=== PATIENT | male | born 1960 | race Caucasian/White ===

== ENCOUNTER 2016-11-24 22:41 | Emergency (ER) | payer MEDICARE ==
[~2016-11-24] VITALS: Ht 175.3 cm; Wt 103.6 kg
[~2016-11-24 22:41] MED LIST: ALPR0.25 PO; ALPR0.5T6 PO; ALPR1TAB6 PO; AMIT25TA PO; ASPI-482 PO; ATOR10TA PO; ATOR40TA59 PO; BUDE10.22 IH; DULO60CA44 PO; FOLI1TAB16 PO; GABA-586 PO; HYDR-2867 PO; LEVE250T4 PO; LEVE500T6 PO; LISI10TA2 PO; METO10TA PO; MORP15TA PO; MORP30TA PO; MORP60TA PO; OMEP20CA9 PO; ONDA-36 PO; PHEN100C PO; PREG150C PO; TEMA30CA PO; WARF5TAB7 PO; lisinopril PO; metoprolol PO
--- NOTE | 2016-11-24 23:17 | PHYS DOC ---
General Chief Complaint: MULTIPLE COMPLAINTS Stated Complaint: RT JAW AND EAR PAIN AND SWELLING Time Seen by MD: 22:54 Source: patient, old records Exam Limitations: no limitations Problems: History of Present Illness Initial Comments Pt is 56/M to ED c/o dental/jaw pain. Pt states for the past 3-4 days he's had right upper molar pain which he feels has spread to his TMJ/ear. No fever/chills/diaphoresis, no focal neurodeficit/ hearing change/ear disch. Pt admits to very bad dentition, states he doesn't go to dentists. Pt has run out of his pain medications, states his doctor has "called some more in." Requesting pain meds. Timing/Duration: getting worse (4 days) Severity: moderate Modifying Factors: worse with eating, improves with rest Associated Symptoms: other Allergies: Coded Allergies: cyclobenzaprine (Unverified Allergy, Intermediate, 02/28/15) naproxen (Unverified Allergy, Intermediate, 02/28/15) prednisone (Unverified Allergy, Intermediate, PSYCHOSIS, 02/28/15) I S O L A T I O N *CONTACT* (Verified Allergy, Unknown, 10/26/16) +MRSA screen 10-25-16 Past Medical History Medical History: other (seizure-like activity, CVA, headaches, Crohn's, peripheral neuropathy, DVTs, HTN, HLP, chronic pain, fibromyalgia, osteoarthritis, colon cancer, coronary artery disease, asthma) Surgical History: appendectomy, cholecystectomy, other (left total knee replacement, colectomy, spine) Psychosocial History: anxiety, depression Social History Smoker: quit greater than 1 year, chew Alcohol: none Drugs: none Review of Systems Constitutional: denies chills, denies fever EENTM: see HPIdenies ear pain, denies ear discharge, denies nose pain, denies nose congestion Respiratory: denies cough, denies shortness of breath Cardiovascular: denies chest pain, denies palpitations, denies syncope Gastrointestinal: denies abdominal pain, denies nausea, denies vomiting Genitourinary: denies frequency, denies hematuria Musculoskeletal: see HPI Psychiatric/Neurological: denies headache, denies numbness, denies paresthesia Hematologic/Lymphatic: see HPI Physical Exam General Appearance: no apparent distress, obese Eyes: bilateral eye EOMI, bilateral eye PERRL, bilateral eye normal inspection Ear, Nose, Throat: hearing grossly normal, normal ENT inspection (very poor dentition, teeth 2-4 with severe decay and possible exposed nerve roots no gingival swelling/purulence no jaw TTP), normal pharynx Neck: non-tender, supple Respiratory: normal breath sounds, no respiratory distress Cardiovascular: normal peripheral pulses Gastrointestinal: non tender, soft Back: no CVA tenderness, no vertebral tenderness Extremities: normal range of motion, non-tender Neurologic/Psychiatric: mooner II-XII nml as tested, no motor/sensory deficits, alert, normal mood/affect, oriented x 3 Skin: normal color, warm/dry Orders, Labs, Meds EKG: NSR 77 bpm, no STEMI PATIENT: STACEY LOGAN ACCOUNT: [id number] : 1960 LOCATION: ER AGE: 56 SEX: M EXAM STATUS: REG ER ORD. PHYSICIAN: MARIA DEL CARMEN OLMOS DO REASON: dental abscess R upper molars TMJ/jaw pain r/o osteo PROCEDURE: HEAD AND MAXILLOFACIAL WO CT head and maxillofacial without contrast: Reason for examination: Severe right-sided facial pain and swelling and ear fullness with I in job pain. Nausea for 4 days. Right upper molar dental abscess noted in the ER. CT head without contrast: Comparison is made to previous examination dated 02/28/2015. Axial images were obtained through the brain with no contrast administered. Ventricular systems are symmetric and not abnormally dilated. No midline shift is seen. There is no evidence of intracranial hemorrhage. There is evidence of encephalomalacia involving the right parietal lobe which has not changed. No new sites of mass, infarct or edema are present. No abnormalities are seen in the orbits. There is some mild mucosal disease in the right maxillary antrum. Remaining paranasal sinuses are clear. Mastoid air cells are clear. Impression: Chronic infarct in the right parietal lobe with encephalomalacia. No interval change. No acute intracranial abnormality evident. CT maxillofacial without contrast: No acute abnormalities seen in the nasal bones. Orbital lanier and paranasal sinus lanier are intact. Again noted is some mucosal thickening in the right maxillary antrum but no fluid levels seen. No abnormalities are seen in the parotid glands or submandibular glands. These sternocleidomastoid muscles are symmetric. No abnormalities are seen in the masseter or pterygoid muscles. There is no evidence of abscess. There is some nonspecific lymphadenopathy seen in the submandibular and cervical regions. Impression: Mucosal thickening in the right maxillary antrum without fluid level. Nonspecific lymphadenopathy in the submandibular its cervical regions. No evidence of abscess. Exposure: One or more of the following individualized dose reduction techniques were used for this examination: 1. Automated exposure control. 2. Adjustment of the mA and/or kV according to patient size. 3. Use of iterative reconstruction technique. Electronically signed by: Megan Watts MD (Nov 25, 2016 01:02:49) DICTATED AND SIGNED BY: BIANCA WATTS MD DATE: 11/25/16101 CC: CORTEZ BURCIAGA; MARIA DEL CARMEN OLMOS DO ~ Labs reassuring: WBC 11.8, ESR 28, lactic acid 1.5, CRP 11.7 Pt feeling better, awaiting discharge. He expressed agreement/understanding with treatment plan Departure Time of Disposition: 02:03 Disposition: 01 HOME, SELF-CARE Diagnosis: dental caries, sinusitis Condition: STABLE Patient Instructions: Dental Abscess, Sinusitis, Oolo-cs-Jaju Additional Instructions: Rest, no strenuous activity. Aggressive hydration with gatorade, water. Continue current meds. Rx: clindamycin, norco 7.5mg #15, take with food as directed. Follow up with your doctor in 2-3 days for recheck. Follow up with dentist next available appointment. Per your request, ED staff will provide information regarding [facility] , [facility], and [facility]. Use these resources today to schedule next available dental appointment. Return to ED with new or changing symptoms. MARIA DEL CARMEN OLMOS DO Nov 24, 2016 23:17
[2016-11-25] MEDS ORDERED: CLINDAMYCIN 900MG PREMIX 50 ML IV ONE (00:15)
[2016-11-25] MEDS ORDERED: ONDANSETRON PF 4 MG/2 ML VIAL. IV ONE (00:15)
[2016-11-25] MEDS ORDERED: MORPHINE SULFATE 10 MG/ML SYRINGE. IM ONE (00:30)
[2016-11-25] MEDS: DIAZEPAM 10 MG/2 ML DISP.SYRIN. IM ONE (00:30)
[2016-11-25] MEDS: ONDANSETRON ODT 4 MG TAB.RAPDIS PO ONE (00:40)
[2016-11-25] MEDS: CLINDAMYCIN HCL 150 MG CAPSULE PO ONE (00:40)
[2016-11-25 00:41] LABS: BASO # 0.1 x10^3/uL (0.0-0.2); BASO % 1 % (0-3); EOS # 0.2 x10^3/uL (0.0-0.7); EOS % 2 % (0-3); HEMATOCRIT 38.2 % (39.0-53.0); HEMOGLOBIN 12.4 g/dL (13.0-17.5); LYMPH # 2.9 x10^3/uL (1.0-4.8); LYMPH % 25 % (24-48); MEAN CORPUSCULAR HEMOGLOBIN 30 pg (25-35); MEAN CORPUSCULAR HGB CONC 33 g/dL (31-37); MEAN CORPUSCULAR VOLUME 92 fL (79-100); MONO # 1.1 x10^3/uL (0.0-1.1); MONO % 9 % (0-9); NEUT # 7.4 x10^3uL (1.8-7.7); NEUT % 63 % (31-73); PLATELET COUNT 251 x10^3/uL (140-400); RED BLOOD COUNT 4.17 x10^6/uL (4.30-5.70); RED CELL DISTRIBUTION WIDTH 14.2 % (11.5-14.5); WHITE BLOOD COUNT 11.8 x10^3/uL (4.0-11.0)
[2016-11-25 00:54] LABS: C REACTIVE PROTEIN 11.7 mg/L (0-3.3); CALCIUM 8.8 mg/dL (8.5-10.1); CREATININE 0.7 mg/dL (0.7-1.3); GFR 115.8
--- NOTE | 2016-11-25 01:04 | RAD ---
CT head and maxillofacial without contrast: Reason for examination: Severe right-sided facial pain and swelling and ear fullness with I in job pain. Nausea for 4 days. Right upper molar dental abscess noted in the ER. CT head without contrast: Comparison is made to previous examination dated 02/28/2015. Axial images were obtained through the brain with no contrast administered. Ventricular systems are symmetric and not abnormally dilated. No midline shift is seen. There is no evidence of intracranial hemorrhage. There is evidence of encephalomalacia involving the right parietal lobe which has not changed. No new sites of mass, infarct or edema are present. No abnormalities are seen in the orbits. There is some mild mucosal disease in the right maxillary antrum. Remaining paranasal sinuses are clear. Mastoid air cells are clear. Impression: Chronic infarct in the right parietal lobe with encephalomalacia. No interval change. No acute intracranial abnormality evident. CT maxillofacial without contrast: No acute abnormalities seen in the nasal bones. Orbital lanier and paranasal sinus lanier are intact. Again noted is some mucosal thickening in the right maxillary antrum but no fluid levels seen. No abnormalities are seen in the parotid glands or submandibular glands. These sternocleidomastoid muscles are symmetric. No abnormalities are seen in the masseter or pterygoid muscles. There is no evidence of abscess. There is some nonspecific lymphadenopathy seen in the submandibular and cervical regions. Impression: Mucosal thickening in the right maxillary antrum without fluid level. Nonspecific lymphadenopathy in the submandibular its cervical regions. No evidence of abscess. Exposure: One or more of the following individualized dose reduction techniques were used for this examination: 1. Automated exposure control. 2. Adjustment of the mA and/or kV according to patient size. 3. Use of iterative reconstruction technique. Electronically signed by: Megan Cowan MD (Nov 25, 2016 01:02:49)
[2016-11-25 01:47] LABS: SEDIMENTATION RATE 28 (0-15)
[2016-11-25 01:56] VITALS: BP 148/75
[2016-11-25] MEDS ORDERED: HYDROCODONE/APAP 10/325 TABLET. ONE (01:56)
[2016-11-25] MEDS: HYDROCODONE/APAP 10/325 TABLET. PO ONE (01:56)
[2016-11-25] MEDS ORDERED: HYDR-965 PO (02:08)
[2016-11-25] MEDS ORDERED: CLIN300C86 PO (02:08)
--- NOTE | 2016-11-25 10:27 | EKG ---
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
== END 2016-11-25 02:13 | disposition home or self-care (01) ==
LOC: ER 22:41
DX: K02.9 Dental caries, unspecified (principal); J32.9 Chronic sinusitis, unspecified; I25.10 Atherosclerotic heart disease of native coronary artery without angina pectoris; I10 Essential (primary) hypertension; G89.29 Other chronic pain; M19.90 Unspecified osteoarthritis, unspecified site; M79.7 Fibromyalgia; G62.9 Polyneuropathy, unspecified; E03.9 Hypothyroidism, unspecified; K50.90 Crohn's disease, unspecified, without complications; Z87.891 Personal history of nicotine dependence; Z86.73 Personal history of transient ischemic attack (TIA), and cerebral infarction without residual deficits; Z88.8 Allergy status to other drugs, medicaments and biological substances; Z88.6 Allergy status to analgesic agent; Z91.041 Radiographic dye allergy status
CPT/HCPCS: 36415; 70450; 70486; 80048; 82550; 83605; 84484; 85027; 85651; 86140; 93005; 96372; 99285; Q0162

== ENCOUNTER 2016-11-28 00:01 | Observation (INO) | payer MEDICARE ==
[~2016-11-28] VITALS: Ht 175.3 cm; Wt 102.5 kg
[~2016-11-28 00:01] MED LIST changes: +CLIN300C86 PO; +HYDR-965 PO
[2016-11-28] MEDS ORDERED: LORAZEPAM 2 MG/ML VIAL IM ONE (00:45)
[2016-11-28] MEDS ORDERED: ORPHENADRINE CITRATE 60 MG/2 ML VIAL. IM ONE (00:45)
[2016-11-28] MEDS ORDERED: MORPHINE SULFATE 10 MG/ML SYRINGE. IM ONE (00:45)
--- NOTE | 2016-11-28 00:45 | PHYS DOC ---
General Chief Complaint: BACK PAIN OR INJURY Stated Complaint: BACK MABRY Time Seen by MD: 00:31 Source: patient, EMS Problems: History of Present Illness Initial Comments Patient here by EMS for back pain. Patient states he fell off a dump truck yesterday. He says he landed on the left side of his low back on a curb. He is actually doing fairly well but when he woke up this morning he began to have low back pain. He says it is more towards the center of the low back. He's had some chronic low back problems before. The pain is nonradiating. He's had no fever or chills was felt somewhat hot. There is no runny nose or sore throat. There is no chest pain or shortness of breath. He has some nausea due to pain. He has no abdominal pain. There is no change in bowel or bladder habits no incontinence. He says it hurts to move his legs but there is no focal extremity or neurologic complaints and no weakness numbness or tingling within the lower extremities. He says his been able to get up and about at home today using a cane. Patient did take a hydrocodone for this at home without help. When he got to the point where he cannot get up to go to the bathroom tonight, he called EMS. EMS gave her 100 g of nasal fentanyl the patient states he is starting to feel better. Other than as described he's done nothing at home for this and notes no factors that increase or decrease of symptoms other than try to be up and about. Patient's past medical history is remarkable for Crohn's disease, diabetes, stroke, and heart attack. He states he does not have a stent but had a blood clot. He says he is currently on Coumadin. Also has a history of fibromyalgia. He says ejection sugar at home was running about 150. Patient is a nonsmoker but does use chewing tobacco. He is nonuser of ethanol. He states that we will be unable to get an IV on him tonight. Allergies: Coded Allergies: cyclobenzaprine (Unverified Allergy, Intermediate, 02/28/15) naproxen (Unverified Allergy, Intermediate, 02/28/15) prednisone (Unverified Allergy, Intermediate, PSYCHOSIS, 02/28/15) I S O L A T I O N *CONTACT* (Verified Allergy, Unknown, 10/26/16) +MRSA screen 10-25-16 Past Medical History Medical History: CVA/TIA/stroke, diabetes, fibromyalgia, heart attack, other Surgical History: appendectomy, cholecystectomy, other Social History Smoker: non-smoker, chew Alcohol: none Review of Systems All Other Systems: Reviewed and Negative Physical Exam General Appearance: WD/WN, no apparent distress Ear, Nose, Throat: normal ENT inspection, normal pharynx Neck: full range of motion, supple, normal inspection Respiratory: lungs clear, normal breath sounds, no respiratory distress Cardiovascular: regular rate, rhythm, no edema Gastrointestinal: non tender, soft, no organomegaly Back: no CVA tenderness, vertebral tenderness Extremities: non-tender, normal inspection, no pedal edema Neurologic/Psychiatric: 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 Subjective complaints of pain significantly outweigh the lack of objective signs of discomfort or distress. Vitals are as noted. Pertinent findings on physical exam shows earsclear. Neck is supple without adenopathy or JVD. There's no meningeal signs. There is no cervical tenderness. Chest is clear to auscultation bilaterally cardiac exam is unremarkable. The abdomen is soft and nontender without masses or organomegaly. There is no peritoneal findings. Back shows the patient be diffusely tender over the low lumbar spine. There is no signs of trauma. There is no point tenderness. There is no step- offs or deformity is. The paraspinal areas are clear. She may show no redness cyanosis or edema. He has 1+ right lateral lower extremity reflexes. Strength 5 over 5 equal all sites tested. He has somewhat decreased duration of strength testing due to low back pain. Sensation appears intact. He is initially not ambulated in the ER. He is awake alert and oriented and cooperative. Remainder of physical exam is clincially unremarkable. Orders, Labs, Meds Old charts note prior ER visits for dental caries, knee contusion, and bronchitis. Is admitted in the hospital last month for chest wall pain. Comorbidities of that time included anxiety, seizure-like activity but with previously documented negative video EEG, as well as chronic use of narcotics and benzodiazepines. He was discharged with a prescription for Xanax and morphine immediate release tablets. CT scan of the lumbar spine shows degenerative changes only but no acute fracture or dislocation. 0145 Patient appears to be resting comfortably in the emergency department. However, he continues to complain of severe back pain. Is of interest note that within 30 seconds of injections been given by nursing staff, patient stated he felt relief. However, this time he continues to complain of severe pain. I'm able to get him up to sit, but he really will not stand but says he can't walk because of the pain. As he states he is unable walk and is unwilling to do so, I cannot send him home. He will require admission for evaluation of intractable back pain. Patient's primary care physicians in [place]. I did discuss the case with Dr. Kelley of the hospitalist service who graciously agrees to accept the patient. I'm initial holding orders including IV pain medication and physical therapy consult. I've written for some basic labs were drawn, including urinalysis and PT INR given his history of Coumadin use and possible back contusion. As noted, the patient's affect certainly is in variance with the stated degree of pain, and I do wonder if there is supratentorial component to tonight's presentation. He does have known issues with chronic narcotic and benzodiazepine use as previously described. He is resting comfortably at this time, sitting up on the bed, in no acute discomfort distress, neurologically intact, awaiting transfer to the floor and hospitalist care. DAYLIN WOODY MD Nov 28, 2016 00:45
--- NOTE | 2016-11-28 01:25 | RAD ---
Examination: CT lumbar spine without contrast. History: History of fall, injury, low back pain. COMPARISON None available. TECHNIQUE Axial CT images of the lumbar spine was performed without contrast. Coronal sagittal reformats were performed. Exposure: One or more of the following dose reduction technique were utilized for this examination: 1. Automated exposure control. 2.Adjustment of MA and /or KV according to patient size. 3. Use of iterative reconstruction technique. Findings : The vertebral body heights are maintained. There is no acute fracture identified. Mildly intervertebral disc height loss identified at L3-L4, L4-L5, L5-S1 vertebral level with mild disc bulges identified at L1-2, L2-3, and L3-L4, L4-L5, L5-S1 vertebral level through the bilateral facets are well aligned. Mild anterior thecal sac impression identified at L3-L4, L4-L5, L5-S1 vertebral levels. Moderate aortic atherosclerosis. Impression: - No acute osseous findings. - Mild degenerative changes lumbar spine. Electronically signed by: Narciso Elaine (Nov 28, 2016 01:23:17)
--- NOTE | 2016-11-28 02:16 | ACF ---
Admission Criteria Forms BACK PAIN Clinical Indications for Admission to Inpatient Care (Place 'X' for any and all applicable criteria): Admission is indicated for ANY ONE of the following (1)(2)(3)(4)(5)(6): [X]I. Inpatient admission required rather than observation care (Also use Back Pain: Observation Care as appropriate) because of ANY ONE of the following [X]a) Severe pain requiring acute inpatient management [ ]b) Immediate inpatient surgery [ ]c) Other condition, treatment or monitoring requiring inpatient admission [ ]II. Spine fracture with significant damage or threat of damage to vertebral column or spinal cord [ ]III. Progressive or severe neurologic deficit [ ]IV. Suspected spinal infection (e.g., epidural abscess, vertebral osteomyelitis)(10) [ ]V. Suspected cause requires inpatient treatment (eg, aortic dissection) [ ]. Cauda equina syndrome as indicated by ANY ONE of the following (9): [ ]a) Bowel dysfunction [ ]b) Bladder dysfunction [ ]c) Saddle anesthesia [ ]d) Neurologic abnormality suggesting cauda equina impingement Extended stay beyond goal length of stay may be needed for (3)(25): [ ]a) Spinal cord compression from stenosis, disk, or tumor (8)(9) [ ]b) Traumatic or pathologic vertebral fracture (33) [ ]c) Vertebral infection(10) [ ]d) Severe pain that is difficult to control [ ]e) Older patients(65 years or older) The original [employer] content created by [employer] has been revised. The portions of the content which have been revised are identified through the use of italic text or in bold, and [facility] has neither reviewed nor approved the modified material. All other unmodified content is copyright [employer]. Please see references footnoted in the original [facility] edition 2016 Admission Criteria Met?: Yes LIBBY LUNA Nov 28, 2016 02:16
[2016-11-28 03:53] VITALS: BP 159/80
[2016-11-28] MEDS ORDERED: LORAZEPAM 2 MG/ML VIAL IV PRN ×2 (04:30)
[2016-11-28] MEDS: MORPHINE SULFATE 4 MG/ML DISP.SYRIN. IV PRN ×2 (05:00→07:10)
[2016-11-28] MEDS ORDERED: METOCLOPRAMIDE 10 MG TABLET PO PRN (06:15)
[2016-11-28] MEDS ORDERED: HYDROCODONE/APAP 7.5/325MG TABLET. PO PRN (06:15)
[2016-11-28 06:36] LABS: BACTERIA,URINE 0 /HPF (0-FEW); BILIRUBIN,URINE NEG (NEG); CLARITY,URINE CLEAR; COLOR,URINE YELLOW; GLUCOSE,URINE NEG (NEG); NITRITE,URINE NEG (NEG); RBC,URINE 0 /HPF (0-2); SQUAMOUS EPITHELIAL CELL,UR OCC /LPF; UROBILINOGEN,URINE 0.2 mg/dL (0.2 mg/dL); WBC,URINE RARE /HPF (0-4)
[2016-11-28 06:38] LABS: BARBITURATES NEG (NEG); BENZODIAZEPINES POS (NEG); CANNABINOIDS NEG (NEG); COCAINE NEG (NEG); METHADONE NEG (NEG); OPIATES POS (NEG); PHENCYCLIDINE NEG (NEG)
[2016-11-28 06:39] LABS: AMPHETAMINE/METHAMPHETAMINE NEG (NEG)
[2016-11-28 07:10] LABS: BASO # 0.1 x10^3/uL (0.0-0.2); BASO % 1 % (0-3); EOS # 0.3 x10^3/uL (0.0-0.7); EOS % 3 % (0-3); HEMATOCRIT 40.6 % (39.0-53.0); HEMOGLOBIN 13.1 g/dL (13.0-17.5); LYMPH # 2.4 x10^3/uL (1.0-4.8); LYMPH % 25 % (24-48); MEAN CORPUSCULAR HEMOGLOBIN 30 pg (25-35); MEAN CORPUSCULAR HGB CONC 32 g/dL (31-37); MEAN CORPUSCULAR VOLUME 93 fL (79-100); MONO # 0.7 x10^3/uL (0.0-1.1); MONO % 7 % (0-9); NEUT # 6.1 x10^3uL (1.8-7.7); NEUT % 63 % (31-73); PLATELET COUNT 246 x10^3/uL (140-400); RED BLOOD COUNT 4.36 x10^6/uL (4.30-5.70); RED CELL DISTRIBUTION WIDTH 14.1 % (11.5-14.5); WHITE BLOOD COUNT 9.7 x10^3/uL (4.0-11.0)
[2016-11-28 07:11] LABS: ALBUMIN 3.3 g/dL (3.4-5.0); ALBUMIN/GLOBULIN RATIO 0.8 (1.0-1.7); CALCIUM 8.6 mg/dL (8.5-10.1); CREATININE 0.8 mg/dL (0.7-1.3); GFR 99.3; POTASSIUM 4.2 mmol/L (3.5-5.1); TOTAL BILIRUBIN 0.2 mg/dL (0.2-1.0); TOTAL PROTEIN 7.7 g/dL (6.4-8.2)
[2016-11-28] MEDS: ALPRAZOLAM 0.5 MG TABLET PO PRN ×3 (07:14→20:15)
[2016-11-28] MEDS: PANTOPRAZOLE 40 MG TABLET. PO SCH (07:14)
[2016-11-28 07:33] VITALS: BP 145/73
[2016-11-28] MEDS: ALBUTEROL SULFATE 2.5 MG/3 ML NEBU. NEB SCH ×4 (08:00→19:36)
[2016-11-28] MEDS ORDERED: WARFARIN 5 MG TABLET. PO SCH ×2 (08:00→16:00)
[2016-11-28] MEDS: GABAPENTIN 300 MG CAPSULE. PO SCH ×2 (08:16→19:39)
[2016-11-28] MEDS: PHENYTOIN SODIUM EXTENDED 100 MG CAPSULE PO SCH ×2 (08:16→19:40)
[2016-11-28] MEDS: DULOXETINE HCL 60 MG CAPSULE.DR. PO SCH (08:16)
[2016-11-28] MEDS: LISINOPRIL 10 MG TABLET PO SCH (08:18)
[2016-11-28] MEDS: PREGABALIN 150 MG CAPSULE PO SCH ×3 (08:19→19:39)
[2016-11-28] MEDS: FOLIC ACID 1 MG TABLET PO SCH (08:19)
[2016-11-28] MEDS: HYDRALAZINE 10 MG TABLET PO SCH ×3 (08:20→19:40)
[2016-11-28] MEDS: MORPHINE ER 60 MG TABLET.ER PO SCH ×2 (08:21→19:39)
[2016-11-28] MEDS: LEVETIRACETAM 250 MG TABLET. PO SCH ×2 (08:25→19:41)
[2016-11-28] MEDS ORDERED: NON FORMULARY ITEM (Budesonide/Formoterol Fumarate (Symbicort 80-4.5 Mcg Inhaler) 2 PUFF) IH SCH (09:00)
[2016-11-28] MEDS: MORPHINE IR 15 MG TABLET PO PRN ×2 (09:13→23:48)
[2016-11-28] MEDS: BUDESONIDE 0.5 MG/2 ML NEBU NEB SCH ×2 (12:04→19:36)
[2016-11-28 14:24] VITALS: BP 143/78
[2016-11-28 16:57] VITALS: BP 152/95
--- NOTE | 2016-11-28 17:00 | HP ---
ADMIT DATE: 11/28/2016 HISTORY OF PRESENT ILLNESS: The patient is a 56-year-old male patient, who came to the Emergency Room complaining of back pain. Apparently, he fell from dump truck yesterday. He states he landed in the left side on his low back on a curve. Did subsequently very well until he woke up yesterday morning. When he began to have low back pain, he states it is more towards the center of his low back. He had actually some chronic back pain problem before, pain is not radiating. Denied any other complaint. It hurts when he moves his legs, but there is no focal extremity or neurologic complaints. No weakness, numbness, tingling. There is no bowel or bladder problem. He denied any bowel or bladder incontinence. He stated that he was able to get up and walk about at home using a cane. The patient did take hydrocodone for pain at home. Apparently get up to go to the bathroom again and he called EMS and he was given 100 mcg of nasal fentanyl. He stated that he is starting to feel better. He was brought to the Emergency Room while he was extensively investigated. His lab work is essentially unremarkable. He is on Coumadin. His INR is in therapeutic range. He has had an lumber spine CT scan, which showed that there is no acute osseous finding, mild degenerative changes in lumbar spine. He was admitted for pain management. PAST MEDICAL HISTORY: Significant for Crohn's disease, history of severe headaches, DVT, hypertension, diabetes, hyperlipidemia, chronic pain, fibromyalgia, osteoarthritis and colon cancer apparently. PAST SURGICAL HISTORY: Significant for appendectomy, cholecystectomy, left total knee arthroplasty, colon resection as well as cardiac catheterization, but no stent deployment. FAMILY HISTORY: Unremarkable. SOCIAL HISTORY: He lives with his . He does not smoke, but chew every other day. He does not drink alcohol or use any recreational drugs. ALLERGIES: He is allergic to CYCLOBENZAPRINE, NAPROXEN, PREDNISONE. MEDICATIONS: He is currently on following medications: He is on alprazolam 0.5 mg every 12 hours, alprazolam 1 mg every 6 hours, amitriptyline 25 mg at bedtime, atorvastatin calcium 40 mg at bedtime. He is on Symbicort 80/4.5 two puffs twice a day. He was on clindamycin 300 mg every 6 hours, duloxetine 60 mg once a day, folic acid 1 mg once a day, gabapentin 300 mg p.o. b.i.d., hydralazine 10 mg 3 times a day, hydrocodone/APAP 7.5/325 one tablet every 6 hours. He is on Keppra 250 mg twice a day, lisinopril 10 mg once a day, metoclopramide 10 mg every 8 hours, morphine sulfate 50 mg every 8 hours, morphine sulfate 60 mg extended release twice a day, omeprazole 20 mg once a day, ondansetron 8 mg every 8 hours. He is on phenytoin extended release 400 mg capsule twice a day, pregabalin 150 mg t.i.d., Lyrica 30 mg, temazepam 30 mg at bedtime and warfarin 5 mg daily. REVIEW OF SYSTEMS: As per history of present illness. PHYSICAL EXAMINATION GENERAL: When I examined him, he was resting, slightly propped up in bed, in no apparent respiratory distress, slightly pale, no jaundice, cyanosis, or thyromegaly. No jugular venous distension. No limb edema. VITAL SIGNS: His heart rate was 60, blood pressure 159/80, temperature was 98.2, respiratory rate was 20, and oxygen saturation was 96% on room air. HEAD, EYES, EARS, NOSE AND THROAT: Showed normocephalic, atraumatic. NECK: Supple. HEART: Showed normal first and second heart sounds with no gallop, rub or murmur. CHEST: Clear to auscultation. No crepitation or rhonchi. ABDOMEN: Distended, soft, nontender. No guarding or rigidity. No organomegaly. All hernial orifices intact. Bowel sounds normal. NEUROLOGIC: He was awake, alert, responding appropriately. All his cranial nerves are intact. EXTREMITIES: He moves extremities without difficulty, ambulates with a walker. LABORATORY DATA: While in the Emergency Room, his white cell count was 9700, hemoglobin 13, hematocrit 40, MCV 93, and platelet count 246,000. His chemistry showed a serum sodium 142, potassium 4.2, chloride 105, bicarbonate 28, anion gap of 9, BUN 10, creatinine 0.8, estimated GFR was 99 mL per minute. His glucose 133, calcium was 8.6. Total bilirubin, AST, ALT were normal. Alkaline phosphatase slightly elevated. His total protein was 7.7, albumin was 3.3. His prothrombin time was 27.4, INR of 2.7. Urinalysis showed the urine was yellow, clear with a pH of 5.5, specific gravity of 1.010. The urine was negative for protein, glucose, ketones, blood, nitrite, bilirubin, and leukocyte esterase. There are no bacteria. As I stated, his lumbar spine CT scan showed that the vertebral body heights are maintained. There is no acute fracture identified. Mild intervertebral disk height loss identified at L3-L4 and L4-L5. L5-S1 vertebral levels with mild disk bulge identified at L1-L2, L2-L3, L3-L4, L4-L5 and L5-S1. Vertebral levels to the bilateral facets are well aligned, mild anterior thecal sac impression identified at L3-L4, L4-L5 and L5-S1 vertebral level, moderate aortic atherosclerosis. MARCO A GRIJALVA MD DR: DEMETRIA/yas JOB#: [id number] / [id number]
[2016-11-28 19:46] VITALS: BP 138/76
[2016-11-28] MEDS ORDERED: TEMAZEPAM 30 MG CAPSULE PO SCH (21:00)
[2016-11-28] MEDS ORDERED: AMITRIPTYLINE HCL 25 MG TABLET PO SCH (21:00)
[2016-11-28] MEDS ORDERED: ATORVASTATIN CALCIUM 20 MG TABLET PO SCH (21:00)
[2016-11-29] MEDS: ALPRAZOLAM 0.5 MG TABLET PO PRN ×3 (03:31→15:03)
--- NOTE | 2016-11-29 04:06 | CONS ---
DATE OF CONSULTATION: 11/28/2016 REFERRING PHYSICIAN: Dr. Kelley. REASON FOR CONSULTATION: Severe lower back pain. HISTORY OF PRESENT ILLNESS: This is a 56-year-old male, who was admitted through Emergency Room after he presented with acute onset of localized lower back pain that began yesterday after he fell from and landed on his left side. Subsequently, he started experiencing severe localized lower back pain. He also complains of weakness of the lower extremities. He denies numbness or paresthesia, bowel or bladder dysfunctions. The symptoms are usually aggravated by physical activities, prolonged standing or sitting or walking. He underwent total left knee replacement 2 months ago, but he has been using a walker for ambulation long time before that. Initial CT scan of the lumbar spine revealed evidence of degenerative disk disease at multiple levels from L2-S1. The reason for neuro consult today is that the patient has been recently under stress. He stated he had some talk with his visiting today and he became upset and anxious. Subsequently, he started experiencing bilateral upper extremities tremor, lasted approximately one hour. He did not lose his consciousness or had postictal confusion, confusion or disorientation. The patient did recall the events. He stated he usually have seizure-like activities when he is under stress. PAST MEDICAL HISTORY: Quite extensive including seizure disorder, hypertension, hyperlipidemia, diabetes mellitus, DVT, chronic headaches, Crohn disease, fibromyalgia, osteoarthritis, and history of colon cancer. PAST SURGICAL HISTORY: Significant for appendectomy, cholecystectomy, recent left total knee replacement at [facility], colon resection, history of intermittent chest pain with normal cardiac catheterization, obesity, myocardial infarction. FAMILY HISTORY: Noncontributory. CURRENT HOME MEDICATIONS: Atorvastatin, Lipitor 40 mg daily, temazepam 30 mg at bedtime, amitriptyline 25 mg at bedtime, warfarin 5 mg p.o. daily, Lyrica, gabapentin 150 mg t.i.d., phenytoin 400 mg b.i.d., morphine sulfate 60 mg b.i.d., lisinopril 10 mg p.o. daily, Keppra 250 mg b.i.d., hydralazine 10 mg t.i.d., gabapentin 300 mg b.i.d., folic acid 1 mg daily, Cymbalta 60 mg p.o. daily, albuterol inhalers p.r.n., Pulmicort 0.5 mg nebulizer daily, Protonix 40 mg p.o. daily, alprazolam 1 mg q. 6 hours p.r.n. for anxiety, Reglan 10 mg q. 8 hours p.r.n., Tylenol, and alprazolam 0.5 mg q. 12 hours p.r.n. for anxiety, lorazepam 2 mg q. 4 hours p.r.n. for anxiety. ALLERGIES: CYCLOBENZAPRINE, NAPROXEN, PREDNISONE. REVIEW OF SYSTEMS: A 10-point review of system was performed and consistent with localized lower back pain as described above. PHYSICAL EXAMINATION: GENERAL: Obese white male, not in acute distress. He weighs 223 pounds. VITAL SIGNS: Blood pressure 152/95, respiratory rate 20, pulse is 80 and regular, temperature 98.2, oxygen saturation 97% on room air. HEENT: Normocephalic, atraumatic, otherwise unremarkable. NECK: Supple. Negative for carotid bruit, lymphadenopathy, or thyromegaly. LUNGS: Clear to A and P. CARDIOVASCULAR: Regular rate and rhythm. Normal S1, S2. There is no S3, S4 or murmur. ABDOMEN: Soft. Bowel sounds positive. EXTREMITIES: Negative for cyanosis, clubbing, or pitting edema. NEUROLOGIC: MENTAL STATUS: The patient is alert and oriented x 3. The speech is fluent. There is no language dysfunction. Memory, judgment, and abstract thinking are normal. The patient denies hallucination or delusion. CRANIAL NERVES: Visual peters are full. The pupils are reactive to light and accommodation. The extraocular movements are intact. There is no nystagmus. There is no facial motor or sensory deficit. Hearing is intact bilaterally. The palate is elevated symmetrically. Sternocleidomastoid muscles are powerful bilaterally. The patient shrugs his shoulders symmetrically and protrudes his tongue in the midline without fasciculation or atrophy. MOTOR EXAMINATION: No focal muscle bulk was seen. The tone is normal. The strength is 5/5 throughout. Sensory examination revealed diminished pinprick and light touch senses in stocking distributions, more prominent on the left side. Deep tendon reflexes were symmetric and hypoactive with absent Achilles responses bilaterally. Gait: The stance is steady. The patient uses a walker for ambulation. The coordination, [id number] and [id number] normal. LABORATORY DATA: CBC revealed white blood cells of 9.7 thousand, hemoglobin 13.1, hematocrit 40.6, platelet count 246,000. Chemistry reveals sodium of 142, potassium 4.2, chloride 105, CO2 28, BUN 10, creatinine 0.8, glucose 133, calcium 8.6. Liver enzymes are normal. Coagulation: PT is 27.1. INR is 2.7. Urinalysis negative for urinary tract infections. Urine drug screen is positive for benzodiazepine and opiate. IMPRESSION: 1. Chronic lower back pain with recent exacerbation localized in nature, likely due to underlying degenerative disk disease at multiple levels. 2. Multiple medical problems include coronary artery disease, hyperlipidemia, hypertension, peripheral neuropathy, seizure disorder of unknown etiology, osteoarthritis and diabetes mellitus, chronic disease. RECOMMENDATIONS: 1. Continue with current management initiated by Dr. Kelley. 2. In case of intractable lower back pain, the patient should be evaluated at pain clinic for possible lumbosacral epidural . 3. Physical therapy evaluation. M Josue HERNANDEZ MD DR: ALVARO/yas JOB#: [id number] / [id number]
[2016-11-29 05:13] VITALS: BP 137/67
[2016-11-29] MEDS: ALBUTEROL SULFATE 2.5 MG/3 ML NEBU. NEB SCH ×3 (05:25→16:06)
[2016-11-29 06:42] LABS: PHENY 12.4 mcg/mL (10.0-20.0)
[2016-11-29] MEDS: DULOXETINE HCL 60 MG CAPSULE.DR. PO SCH (08:58)
[2016-11-29] MEDS: PANTOPRAZOLE 40 MG TABLET. PO SCH (08:58)
[2016-11-29] MEDS: GABAPENTIN 300 MG CAPSULE. PO SCH (08:58)
[2016-11-29] MEDS: PHENYTOIN SODIUM EXTENDED 100 MG CAPSULE PO SCH (08:58)
[2016-11-29] MEDS: PREGABALIN 150 MG CAPSULE PO SCH ×2 (08:58→13:37)
[2016-11-29] MEDS: MORPHINE ER 60 MG TABLET.ER PO SCH (08:58)
[2016-11-29] MEDS: LISINOPRIL 10 MG TABLET PO SCH (08:58)
[2016-11-29] MEDS: LEVETIRACETAM 250 MG TABLET. PO SCH (08:59)
[2016-11-29] MEDS: HYDRALAZINE 10 MG TABLET PO SCH ×2 (08:59→13:37)
[2016-11-29] MEDS: FOLIC ACID 1 MG TABLET PO SCH (08:59)
[2016-11-29 10:50] VITALS: BP 135/76
[2016-11-29] MEDS: BUDESONIDE 0.5 MG/2 ML NEBU NEB SCH (11:07)
[2016-11-29] MEDS: MORPHINE IR 15 MG TABLET PO PRN (13:37)
[2016-11-29 15:11] VITALS: BP 160/73
--- NOTE | 2016-11-29 20:30 | DS ---
DATE OF DISCHARGE: 11/29/2016 HISTORY OF PRESENT ILLNESS: The patient is a 56-year-old male patient who came to the Emergency Room complaining of low back pain stating that he fell from a dump truck. He was extensively investigated. All his lab works were unremarkable. His CT scan of the lumbar spine showed no acute osseous finding, mild degenerative changes in the lumbar spine. He has been ambulatory without assistance and a decision was made to discharge him home with home health to continue with physical and occupational therapy as an outpatient. PHYSICAL EXAMINATION: GENERAL: When I saw him this afternoon, he looked well and was clearly in no apparent respiratory distress, pale, but no jaundice, cyanosis, or thyromegaly. No jugular venous distention. No limb edema. VITAL SIGNS: His heart rate was 58, blood pressure 135/76, temperature was 98.4, respiratory rate was 20 and oxygen saturation was 97%. HEAD, EYES, EARS, NOSE AND THROAT: Normocephalic, atraumatic. NECK: Supple. HEART: Showed normal first and second heart sounds with no gallop, rub or murmur. CHEST: Clear to auscultation. No crepitation or rhonchi. ABDOMEN: Distended, soft, nontender. No guarding or rigidity. No organomegaly. Hernial orifices intact. Bowel sounds normal. NEUROLOGIC: He was awake, alert, responding appropriately. Cranial nerves intact. EXTREMITIES: He moves extremities without difficulty, ambulates without assistance or assistive devices. He continued to have back pain. LABORATORY DATA: Showed that his nasal screen for MRSA by PCR was negative. His white cell count was 9700, hemoglobin 13, hematocrit 41, MCV 93, and platelet count 246,000. His chemistry showed a serum sodium 142, potassium 4.2, chloride 105, bicarbonate 28, anion gap of 9, BUN 10, creatinine 0.8, estimated GFR was 99 mL per minute. His glucose was 133. Calcium was 8.6. Total bilirubin was 0.2. AST, ALT, alkaline phosphatase was slightly elevated 171. Total protein 7.7, albumin was 3.3. His prothrombin time was 27.4, INR of 2.7. Urinalysis was unremarkable. Urine toxic screen was positive for opiates and his phenytoin level was 12.4, which is well within therapeutic range. His benzodiazepine screen was positive also. DISCHARGE MEDICATIONS: The patient will be discharged home to continue on following medication: Alprazolam 0.5 mg p.o. twice a day as needed, alprazolam 1 mg every 6 hours as needed, amitriptyline 25 mg at bedtime, atorvastatin 40 mg at bedtime, Symbicort 80/4.5 two puffs twice a day, duloxetine 60 mg once a day, folic acid 1 mg 1 tablet once a day, gabapentin 300 mg p.o. b.i.d., hydralazine 10 mg 3 times a day, hydrocodone/APAP 7.5/325 one tablet every 6 hours, Keppra 250 mg twice a day, lisinopril 10 mg once a day, metoclopramide 10 mg every 8 hours, morphine sulfate 15 mg every 8 hours, morphine sulfate 60 mg p.o. b.i.d., omeprazole 20 mg once a day, ondansetron 8 mg every 8 hours, phenytoin sodium extended release 400 mg p.o. b.i.d., pregabalin for Lyrica 150 mg t.i.d., temazepam 30 mg at bedtime, warfarin 5 mg daily. FINAL DISCHARGE DIAGNOSES: Fall with low back pain without any acute osseous finding, has mild degenerative changes of lumbar spine. The patient has multiple other medical problems including Crohn's disease, history of severe headache, deep venous thrombosis, hypertension, diabetes, hyperlipidemia, chronic back pain, fibromyalgia, osteoarthritis and colon cancer, status post resection. The patient will be discharged home with home health. MARCO A GRIJALVA MD DR: DEMETRIA/yas JOB#: [id number] / [id number]
--- NOTE | 2016-11-29 21:42 | PN ---
DATE: 11/29/2016 SUBJECTIVE: The patient continues to complain of severe low back pain which has been improved by morphine ejection. The patient denies any recurrent spells of tremor or seizure-like activities. He stated he would have tremor and seizure-like activities when he is under extreme stress. OBJECTIVE: GENERAL: Well-developed, well-nourished white male, not in acute distress. VITAL SIGNS: Blood pressure 137/67, respiratory rate 20, pulse 56 and regular, oxygen saturation is 97% on room air, afebrile. HEENT: Normocephalic, atraumatic, otherwise unremarkable. NECK: Supple. Negative for carotid bruit, lymphadenopathy or thyromegaly. LUNGS: Clear to A and P. CARDIOVASCULAR: Regular rhythm, normal S1, S2. There is no S3, S4 or murmur. ABDOMEN: Soft. Bowel sounds positive. EXTREMITIES: Negative for cyanosis, clubbing or pitting edema. NEUROLOGICAL EXAM: Mental Status: The patient is alert and oriented x 3. Speech is fluent. There is no language dysfunction. Otherwise his mental status is intact. Cranial nerves are intact. Motor Examination: No focal muscle bulk was seen. The tone was normal. The strength was 5/5 throughout. Sensory examination revealed diminished pinprick and light touch senses in a stocking distribution, more prominent on the left side. Deep tendon reflexes are symmetric and hypoactive with absent Achilles responses. Gait: The patient uses a walker for ambulation. IMPRESSION: 1. Recurrent spells of tremor and jerking movements of the upper extremities, likely due to stress and anxiety. 2. Multiple medical problems including chronic lower back pain, peripheral neuropathy, coronary artery disease, hypertension, hyperlipidemia, and seizure disorder of unknown etiology. RECOMMENDATIONS: Continue with current management for pain control. However, it is recommended avoid excessive use of narcotics. Continue with Lyrica for neuropathic symptoms. Physical therapy as tolerated. M Josue HERNANDEZ MD DR: ALVARO/yas JOB#: [id number] / [id number]
== END 2016-11-29 16:43 | disposition home health service (06) ==
LOC: ER 00:01 → 1 SOUTH 02:00 → INTOOBSV 02:00
PROVIDERS: ADMIT Internal Medicine; ATTEND Internal Medicine
DX: M54.5 Low back pain (principal); G89.29 Other chronic pain; M51.36 Other intervertebral disc degeneration, lumbar region; K50.90 Crohn's disease, unspecified, without complications; I10 Essential (primary) hypertension; E11.42 Type 2 diabetes mellitus with diabetic polyneuropathy; E78.5 Hyperlipidemia, unspecified; M19.90 Unspecified osteoarthritis, unspecified site; M79.7 Fibromyalgia; I25.2 Old myocardial infarction; I25.10 Atherosclerotic heart disease of native coronary artery without angina pectoris; G40.909 Epilepsy, unspecified, not intractable, without status epilepticus; Z79.01 Long term (current) use of anticoagulants; Z86.718 Personal history of other venous thrombosis and embolism; Z96.652 Presence of left artificial knee joint; Z85.038 Personal history of other malignant neoplasm of large intestine; Z86.73 Personal history of transient ischemic attack (TIA), and cerebral infarction without residual deficits
CPT/HCPCS: 36415; 72131; 80053; 80185; 81001; 82947; 85027; 85610; 87641; 94640; 96372; 96374; 96375; 96376; 97110; 97162; 97166; 97530; 99285; G0378; G0481; J2060; J2270; J2360; J7613; J7626; G0379

== ENCOUNTER 2016-12-26 00:20 | Inpatient (IN) | payer MEDICARE ==
[~2016-12-26] VITALS: Ht 175.3 cm; Wt 103.0 kg
[2016-12-26] VITALS (7 sets, daily range): BP systolic 115–183; BP diastolic 57–79
--- NOTE | 2016-12-26 00:45 | ED.ADGEN ---
Past History Past Medical History: Anxiety, Arthritis, Bronchitis, CAD, COPD, CVA, Depression, Diabetes, Fibromyalgia, GI Bleed, High Cholesterol, Heart Disease, Hypertension, IBS, DE, Seizure, Stroke, TIA, Other Past Surgical History: Angioplasty, Appendectomy, Cervical Fusion, Cholecystectomy, Colectomy, Knee Replacement, Other Smoking: Cigarettes, Quit Greater Than 1 Year Alcohol Use: Occasionally Drug Use: None Adult General Chief Complaint Chief Complaint ".. I started getting chest pain ... again... like in 2007 when I had my chest pain... it was a heart attack.. then I had a stroke after that... I ve been seeing Dr. Gudino... he said ... I need to see a cardiology again... but tonight I started getting these chest pains again..." HPI HPI Patient is a 56 year old male who presents with above hx and complaints. Pt. rates discomfort at worse 10/10, currently 5/10, with discomfort central, radiates into neck, jaw and Lt. shoulder. Patient has history of prior tobacco use but stopped after his CVA and MIs. Patient still has some residual loss of left upper arm and leg. Patient does have a history of hypertension, colitis with abdomen resection, bone graft, cervical fixation and hypercholesterol. Pt. normally follows [facility] Dr. Gudino. Review of Systems Review of Systems Constitutional: Denies fever or chills [] Eyes: Denies change in visual acuity, redness, or eye pain [] HENT: Denies nasal congestion or sore throat [] Respiratory: Complaints of shortness of breath [] Cardiovascular: No additional information not addressed in HPI [] GI: Denies abdominal pain, nausea, vomiting, bloody stools or diarrhea [] : Denies dysuria or hematuria [] Musculoskeletal: Denies back pain or joint pain [] Integument: Denies rash or skin lesions [] Neurologic: Denies headache, focal weakness or sensory changes [] Complaints of episodic near syncopal events. Endocrine: Denies polyuria or polydipsia [] Family History Family History Noncontributory Current Medications Current Medications Current Medications Medications (Trade) Dose Ordered Sig/Perfecto Start Time Stop Time Status Last Admin Dose Admin Aspirin 325 mg 325 mg 1X ONCE 12/26/16 01:30 12/26/16 01:31 DC 4/25/17 01:24 325 MG Morphine Sulfate (Morphine 10mg Syringe) 10 mg 1X ONCE 12/26/16 01:30 12/26/16 01:31 DC 12/26/16 01:25 10 MG Nitroglycerin (Nitro-Bid Oint) 1 inch 1X ONCE 12/26/16 01:30 12/26/16 01:31 DC 12/26/16 01:25 1 INCH Sodium Chloride (Iv Sodium Chloride 0.9% 1,000ml) 1,000 ml @ 1,000 mls/hr Q1H 12/26/16 01:30 12/26/16 02:29 DC 12/26/16 01:24 1,000 MLS/HR Allergies Allergies Allergies Coded Allergies Type Severity Reaction Last Updated Verified cyclobenzaprine Allergy Intermediate 02/28/15 No naproxen Allergy Intermediate 02/28/15 No prednisone Allergy Intermediate PSYCHOSIS 02/28/15 No I S O L A T I O N *CONTACT* Allergy Unknown 10/26/16 Yes Physical Exam Physical Exam Constitutional: in acute emotional distress, non-toxic appearance. [] HENT: Normocephalic, atraumatic, bilateral external ears normal, oropharynx moist, no oral exudates, nose normal. [] Eyes: PERRLA, EOMI, conjunctiva normal, no discharge. [] Neck: Normal range of motion, no tenderness, supple, no stridor. Old surgical scars. Cardiovascular:Bradycardia Heart rate regular rhythm, no murmur [, PMI to Lt. ] Lungs & Thorax: Bilateral breath sounds equal at apexes with scattered wheezes on auscultation [. Basilar crackles Abdomen: Bowel sounds normal, soft, no tenderness, no masses, no pulsatile masses. Obese. Old surgery scar. Pt declines rectal at this time. Skin: Warm, dry, no erythema, no rash. [] Back: No tenderness, no CVA tenderness. [] Extremities: No tenderness, no cyanosis, no clubbing, ROM intact, ankle edema. [ ] Some Lt arm and Lt leg weakness-( residue from prior CVA in 2007. per pt. ) Lt knee scar. Neurologic: Alert and oriented X 3, normal motor function, normal sensory function, no focal deficits noted. [] Psychologic: Affect anxious, judgement normal, mood normal. [] Current Patient Data Vital Signs Vital Signs Date Time Temp Pulse Resp B/P Pulse Ox O2 Delivery O2 Flow Rate FiO2 12/26/16 01:25 20 98 Room Air 12/26/16 01:25 50 142/78 Lab Results Laboratory Tests Test 12/26/16 01:00 12/26/16 01:03 12/26/16 01:19 White Blood Count 10.5x10^3/uL (4.0-11.0) Red Blood Count 4.20x10^6/uL (4.30-5.70) L Hemoglobin 12.6g/dL (13.0-17.5) L Hematocrit 38.5% (39.0-53.0) L Mean Corpuscular Volume 92fL (79-100) Mean Corpuscular Hemoglobin 30pg (25-35) Mean Corpuscular Hemoglobin Concent 33g/dL (31-37) Red Cell Distribution Width 14.0% (11.5-14.5) Platelet Count 219x10^3/uL (140-400) Neutrophils (%) (Auto) 60% (31-73) Lymphocytes (%) (Auto) 27% (24-48) Monocytes (%) (Auto) 9% (0-9) Eosinophils (%) (Auto) 3% (0-3) Basophils (%) (Auto) 1% (0-3) Neutrophils # (Auto) 6.2x10^3uL (1.8-7.7) Lymphocytes # (Auto) 2.8x10^3/uL (1.0-4.8) Monocytes # (Auto) 1.0x10^3/uL (0.0-1.1) Eosinophils # (Auto) 0.3x10^3/uL (0.0-0.7) Basophils # (Auto) 0.1x10^3/uL (0.0-0.2) Prothrombin Time 20.0SEC (9.4-11.4) H Prothrombin Time INR 1.9 (0.9-1.1) H PTT 32SEC (23-33) D-Dimer (Isabel) 0.31mg/L (0.00-0.50) Sodium Level 141mmol/L (136-145) Potassium Level 4.2mmol/L (3.5-5.1) Chloride Level 105mmol/L (98-107) Carbon Dioxide Level 29mmol/L (21-32) Anion Gap 7 (6-14) 16mmol/L (6-14) H Blood Urea Nitrogen 15mg/dL (8-26) Creatinine 0.9mg/dL (0.7-1.3) Estimated GFR (Cockcroft-Gault) 86.7 Glucose Level 113mg/dL (70-99) H 107mg/dL (60-99) H Calcium Level 8.5mg/dL (8.5-10.1) Magnesium Level 2.3mg/dL (1.8-2.4) Total Bilirubin 0.1mg/dL (0.2-1.0) L Direct Bilirubin 0.1mg/dL (0.0-0.2) Aspartate Amino Transferase (AST) 40U/L (15-37) H Alanine Aminotransferase (ALT) 61U/L (16-63) Alkaline Phosphatase 172U/L (46-116) H Creatine Kinase 85U/L (39-308) Creatine Kinase MB (Mass) 1.0ng/mL (0.0-3.6) Creatine Kinase MB Relative Index 1.2% (0-4) Troponin I Quantitative < 0.017ng/mL (0-0.055) [id number]-Type Natriuretic Peptide 89pg/mL (0-124) Total Protein 7.3g/dL (6.4-8.2) Albumin 3.5g/dL (3.4-5.0) Lipase 213U/L (73-393) POC Hemoglobin 13.3gm/dL POC Hematocrit 39% POC Sodium 142mmol/L (135-145) POC Potassium 4.0mmol/L (3.5-5.0) POC Chloride 103mmol/L (98-110) POC Total CO2 28mmol/L (23-32) POC Blood Urea Nitrogen 17mg/dL (8-26) POC Creatinine 0.7mg/dL (0.5-1.4) POC Ionized Calcium (Esme) 1.08mmol/L (1.13-1.32) L POC Troponin I 0.01ng/ml (<0.08) EKG EKG My interpretation of EKG shows a sinus bradycardia 54 bpm. There is some nonspecific anterior lateral changes. But no findings acute STEMI of contralateral changes. [] Radiology/Procedures Radiology/Procedures I interpretation chest x-ray shows cardiomegaly. Cervical fixation. Atelectasis Course & Med Decision Making Course & Med Decision Making Pertinent Labs and Imaging studies reviewed. (See chart for details) Discussed presentation, testing and tx. plan with Dr. Kelley, will admit and do further eval and tx. Cardiology consult Dr. Currie in AM or sooner if + enzymes or increased pain or dysrhythmia. [] Final Impression Final Impression 1. Chest Pain 2. Hx. CVA Lt side deficits 3. Hx. CADz 4. Hx. Colitis and Colon resection 5. Hx. HTN[] 6. Sub.- Therapeutic INR 7. Anemia 8. Bradycardia Problems: Dragon Disclaimer Dragon Disclaimer This electronic medical record was generated, in whole or in part, using a voice recognition dictation system. LAKEISHA ESCALERA MD Dec 26, 2016 00:45
[2016-12-26 01:16] LABS: HEMOGLOBIN ISTAT 13.3 gm/dL
[2016-12-26] MEDS ORDERED: IV NORMAL SALINE 1,000ML 1,000 ML IV SCH (01:30)
[2016-12-26] MEDS ORDERED: ASPIRIN 325 MG TABLET PO ONE (01:30)
[2016-12-26] MEDS ORDERED: NITROGLYCERIN OINT 1 GM PACKET. TP ONE (01:30)
[2016-12-26] MEDS ORDERED: MORPHINE SULFATE 10 MG/ML SYRINGE. SQ ONE ×2 (01:30→03:00)
[2016-12-26 01:36] LABS: BASO # 0.1 x10^3/uL (0.0-0.2); BASO % 1 % (0-3); EOS # 0.3 x10^3/uL (0.0-0.7); EOS % 3 % (0-3); HEMATOCRIT 38.5 % (39.0-53.0); HEMOGLOBIN 12.6 g/dL (13.0-17.5); LYMPH # 2.8 x10^3/uL (1.0-4.8); LYMPH % 27 % (24-48); MEAN CORPUSCULAR HEMOGLOBIN 30 pg (25-35); MEAN CORPUSCULAR HGB CONC 33 g/dL (31-37); MEAN CORPUSCULAR VOLUME 92 fL (79-100); MONO % 9 % (0-9); NEUT # 6.2 x10^3uL (1.8-7.7); NEUT % 60 % (31-73); PLATELET COUNT 219 x10^3/uL (140-400); WHITE BLOOD COUNT 10.5 x10^3/uL (4.0-11.0)
--- NOTE | 2016-12-26 01:41 | RAD ---
PROCEDURE CT head and cervical spine without contrast 12/26/2016. HISTORY Left-sided arm and facial numbness. Visual changes and headache with neck pain. History of prior CVA and C-spine surgery. TECHNIQUE Noncontrast images were performed. Sagittal and coronal reconstructions of the cervical spine were obtained. Exposure: One or more of the following individualized dose reduction techniques were utilized for this exam: 1. Automated exposure control. 2. Adjustment of the mA and/or kV according to patient size. 3. Use of iterative reconstruction technique. COMPARISON 11/25/2016 and 02/28/2015. FINDINGS CT head: No intracranial mass, hemorrhage or abnormal extra-axial fluid collection is seen. A region of low attenuation is again shown in the right parietal area, and is consistent with a previous infarct. No new area of abnormal density is identified. The ventricles and basilar cisterns are normally positioned. The sinuses and mastoid air cells are clear. CT cervical spine: Alignment is normal. Postoperative changes are again seen bridging C5 through C7. There is no apparent loosening of the fixation plates or screws. There is no apparent loss of vertebral body height or prevertebral soft tissue swelling. No fracture line is seen. The other cervical discs are fairly well maintained in height. No destructive process is seen. Evaluation of the soft tissue structures of the canal is limited without intrathecal contrast. There is likely some foraminal narrowing on the left at C2-3, on the right at C4-5 and C5-6 and bilaterally at C6-7. IMPRESSION Chronic ischemic changes in the brain. No identified acute abnormality. Postoperative and degenerative changes in the cervical spine. No acute abnormality is seen. Evaluation of the soft tissue structures of the canal is limited without intrathecal contrast. Electronically signed by: Mani Mar (Dec 26, 2016 01:40:34)
[2016-12-26 02:01] LABS: ALBUMIN 3.5 g/dL (3.4-5.0); CALCIUM 8.5 mg/dL (8.5-10.1); CREATININE 0.9 mg/dL (0.7-1.3); DIRECT BILIRUBIN 0.1 mg/dL (0.0-0.2); GFR 86.7; MAGNESIUM 2.3 mg/dL (1.8-2.4); POTASSIUM 4.2 mmol/L (3.5-5.1); TOTAL BILIRUBIN 0.1 mg/dL (0.2-1.0); TOTAL PROTEIN 7.3 g/dL (6.4-8.2)
[2016-12-26] MEDS ORDERED: ENOXAPARIN ** NOTE DOSE ** SYRINGE SQ ONE ×2 (02:30→02:37)
[2016-12-26] MEDS ORDERED: ONDANSETRON PF 4 MG/2 ML VIAL. IV PRN (02:30)
[2016-12-26] MEDS ORDERED: ENOXAPARIN 40 MG/0.4 ML DISP.SYRIN. SQ ONE (02:30)
--- NOTE | 2016-12-26 02:36 | ACF ---
Admission Criteria Forms CHEST PAIN Clinical Indications for Admission to Inpatient Care (Place 'X' for any and all applicable criteria): Admission is indicated for chest pain and ANY ONE of the following(1)(2)(3)(4)(5 ): [ ]I. Angina with acute coronary syndrome (Also use Myocardial Infarction or Angina guideline) [ ]II. Hemodynamic instability [ ]III. Angina needing acute intervention as indicated by ALL of the following( 11)(12): [ ]a) Unstable angina is present as indicated by angina that is ANY ONE of the following: [ ]i) New onset [ ]ii) Nocturnal [ ]iii) Prolonged at rest [ ]iv) Progressive [ ]b) Angina warrants acute intervention as indicated by ANY ONE of the following: [ ]i) Recurrent angina (e.g, not responding as previously to treatment) [ ]ii) Angina at rest or with low-level activities despite initial medical therapy [ ]iii) New or presumably new ST-segment depression on ECG [ ]iv) Signs or symptoms of heart failure (eg, dyspnea, pulmonary edema) [ ]v) New or worsening mitral regurgitation [ ]vi) Hemodynamic instability [ ]vii) Dangerous arrhythmia (eg, sustained ventricular tachycardia) [ ]viii) History of percutaneous coronary intervention within 6 months [ ]ix) History of coronary artery bypass graft surgery [ ]x) NASH risk score of 2 or greater[A] [ ]xi) History of Diabetes(14) [ ]xii) High-risk cardiac ischemia findings on noninvasive testing (e.g, echocardiogram, treadmill testing, nuclear scan) [ ]xiii) Chronic renal insufficiency (ie, estimated GFR less than 60 mL/min/1.732m) [ ]xiv) Left ventricular ejection fraction less than 40% [ ]IV. Evidence of DC (eg, cardiac biomarkers positive, ST-segment elevation on ECG) also use Myocardial Infarction Criteria Form. [ ]V. Pulmonary edema [ ]. Respiratory distress [ ]VII. Chest pain indicative of serious diagnosis other than coronary artery disease (eg, aortic dissection) [ ]VIII. Contraindications and/or Inappropriate clinical situations for Observational Care in patients with Chest Pain, when ANY ONE of the following is required: [ ]a) Patient with risk factor for pulmonary embolism, acute coronary syndrome and myocardial infarction (18) [ ]b) Patient with Pulmonary embolism require an average LOS of 4.3 days, therefore emergency department observation management is inappropriate 18,23 [ ]c) Painful condition/s in the elderly, have the highest rate of recidivism after emergency department observation management (10.8%) 20,21,22 [ ]d) Elevated cardiac biomarker requires intensive and exhaustive care (19) [X]IX. General contraindications and/or Inappropriate clinical situations for Observational Care in patients with Chest Pain, when ANY ONE of the following is required: [X]a) Prediction of prolongation of LOS based on ANY ONE of the following may be considered as a contraindication for observational care 2, 3, 4, 5, 6, 7, 8, 9, 10, 11 [ ]i) Age > 65 yrs. [ ]ii) Patient arriving by ambulance [ ]iii) Patient with high acuity [X]iv) Patient requiring vital sign monitoring [ ]v) Patient on IV medication [ ]b) Systolic blood pressures 180mmHg 3,12 [ ]c) Patient with altered mental status including delirium and other alteration of consciousness, (3) [ ]d) Patient whose discharge disposition will be to a residential home or rehabilitation home should not be managed in Emergency Department Observation Unit. CMS rule requires 3 days hospital stay before such placement. 3,13 [ ]e) Patient with failure to thrive due to broad array of etiologies 3,16,17 [ ]f) Inability to ambulate 3,14 Extended stay beyond goal length of stay may be needed for (1)(28): [ ]a) Specific condition diagnosed after evaluation (eg, pulmonary embolism, aortic dissection) [ ]b) Unstable angina [ ]c) Continued suspicion of acute coronary syndrome with inability to complete needed cardiac evaluation (eg, patient clinically unable to undergo stress testing) [ ]d) Myocardial infarction (Contents from ANGINA and CHEST PAIN clinical indications for admission to inpatient care have been integrated in this form) The original [facility] content created by [employer] has been revised. The portions of the content which have been revised are identified through the use of italic text or in bold, and [facility] has neither reviewed nor approved the modified material. All other unmodified content is copyright [facility]. Please see references footnoted in the original [facility] edition 2016 CHEST PAIN Clinical Indications for Admission to Inpatient Care (Place 'X' for any and all applicable criteria): Admission is indicated for chest pain and ANY ONE of the following(1)(2)(3)(4)(5 ): [ ]I. Angina with acute coronary syndrome (Also use Myocardial Infarction or Angina guideline) [ ]II. Hemodynamic instability [ ]III. Angina needing acute intervention as indicated by ALL of the following( 11)(12): [ ]a) Unstable angina is present as indicated by angina that is ANY ONE of the following: [ ]i) New onset [ ]ii) Nocturnal [ ]iii) Prolonged at rest [ ]iv) Progressive [ ]b) Angina warrants acute intervention as indicated by ANY ONE of the following: [ ]i) Recurrent angina (e.g, not responding as previously to treatment) [ ]ii) Angina at rest or with low-level activities despite initial medical therapy [ ]iii) New or presumably new ST-segment depression on ECG [ ]iv) Signs or symptoms of heart failure (eg, dyspnea, pulmonary edema) [ ]v) New or worsening mitral regurgitation [ ]vi) Hemodynamic instability [ ]vii) Dangerous arrhythmia (eg, sustained ventricular tachycardia) [ ]viii) History of percutaneous coronary intervention within 6 months [ ]ix) History of coronary artery bypass graft surgery [ ]x) NASH risk score of 2 or greater[A] [ ]xi) History of Diabetes(14) [ ]xii) High-risk cardiac ischemia findings on noninvasive testing (e.g, echocardiogram, treadmill testing, nuclear scan) [ ]xiii) Chronic renal insufficiency (ie, estimated GFR less than 60 mL/min/1.732m) [ ]xiv) Left ventricular ejection fraction less than 40% [ ]IV. Evidence of DC (eg, cardiac biomarkers positive, ST-segment elevation on ECG) also use Myocardial Infarction Criteria Form. [ ]V. Pulmonary edema [ ]. Respiratory distress [ ]VII. Chest pain indicative of serious diagnosis other than coronary artery disease (eg, aortic dissection) [ ]VIII. Contraindications and/or Inappropriate clinical situations for Observational Care in patients with Chest Pain, when ANY ONE of the following is required: [ ]a) Patient with risk factor for pulmonary embolism, acute coronary syndrome and myocardial infarction (18) [ ]b) Patient with Pulmonary embolism require an average LOS of 4.3 days, therefore emergency department observation management is inappropriate 18,23 [ ]c) Painful condition/s in the elderly, have the highest rate of recidivism after emergency department observation management (10.8%) 20,21,22 [ ]d) Elevated cardiac biomarker requires intensive and exhaustive care (19) [ ]IX. General contraindications and/or Inappropriate clinical situations for Observational Care in patients with Chest Pain, when ANY ONE of the following is required: [ ]a) Prediction of prolongation of LOS based on ANY ONE of the following may be considered as a contraindication for observational care 2, 3, 4, 5, 6, 7, 8, 9, 10, 11 [ ]i) Age > 65 yrs. [ ]ii) Patient arriving by ambulance [ ]iii) Patient with high acuity [ ]iv) Patient requiring vital sign monitoring [ ]v) Patient on IV medication [ ]b) Systolic blood pressures 180mmHg 3,12 [ ]c) Patient with altered mental status including delirium and other alteration of consciousness, (3) [ ]d) Patient whose discharge disposition will be to a residential home or rehabilitation home should not be managed in Emergency Department Observation Unit. CMS rule requires 3 days hospital stay before such placement. 3,13 [ ]e) Patient with failure to thrive due to broad array of etiologies 3,16,17 [ ]f) Inability to ambulate 3,14 Extended stay beyond goal length of stay may be needed for (1)(28): [ ]a) Specific condition diagnosed after evaluation (eg, pulmonary embolism, aortic dissection) [ ]b) Unstable angina [ ]c) Continued suspicion of acute coronary syndrome with inability to complete needed cardiac evaluation (eg, patient clinically unable to undergo stress testing) [ ]d) Myocardial infarction (Contents from ANGINA and CHEST PAIN clinical indications for admission to inpatient care have been integrated in this form) The original [facility] content created by [employer] has been revised. The portions of the content which have been revised are identified through the use of italic text or in bold, and [facility] has neither reviewed nor approved the modified material. All other unmodified content is copyright [facility]. Please see references footnoted in the original [facility] edition 2016 Admission Criteria Met?: Yes LIBBY LUNA Dec 26, 2016 02:36
--- NOTE | 2016-12-26 04:00 | NUR ---
Patient admitted from ER to [address] [place] [address] 119 via gurney, accompanied by EMS and nursing staff. Pt is alert and oriented x4, slightly drowsy from recent Morphine in ER. Pt oriented to room, bed and call light. Admission assessment completed. VSS. Health history and home medications reviewed with pt. Pt UTD on & Pneumonia & Flu vaccine. Pt is a Ex-smoker, but does chew. Coumadin & SCDs for VTE. Pt lives at home with . Patient denies questions/needs at this time. Will continue to monitor. Call light within reach.
[2016-12-26] MEDS ORDERED: METO25TA4 PO (04:57)
[2016-12-26] MEDS ORDERED: OXYC10TA PO (04:57)
[2016-12-26] MEDS: OXYCODONE IR 5 MG TABLET. PO PRN ×3 (06:09→23:04)
[2016-12-26] MEDS: ALPRAZOLAM 0.5 MG TABLET PO PRN ×3 (06:09→20:16)
--- NOTE | 2016-12-26 06:40 | EKG ---
[address] [address] Test Date: 2016-12-26 Test Time: 00:19:50 Pat Name: STACEY LOGAN Department: Room: 119 A Gender: M Bell Clerk: ISAMAR : 1960 Requested By: LAKEISHA ESCALERA Order Number: [id number] Reading MD: Hai Erickson Measurements Intervals [place] Rate: 54 P: 50 DC: 162 QRS: 49 QRSD: 96 T: 41 QT: 424 QTc: 404 Interpretive Statements SINUS RHYTHM Electronically Signed On 12-26-2016 15:59:25 CDT by Hai Erickson
--- NOTE | 2016-12-26 07:24 | RAD ---
Chest, 2 views, 12/26/2016: History: Chest pain The heart is at the upper limits of normal in size. The pulmonary vascularity is normal. No pulmonary infiltrates are seen. There is no evidence of pleural fluid. A surgical plate and screws is evident in the lower cervical spine. IMPRESSION: No acute cardiopulmonary abnormality is detected.
[2016-12-26] MEDS: MORPHINE ER 60 MG TABLET.ER PO SCH ×2 (09:39→20:17)
--- NOTE | 2016-12-26 09:39 | NUR ---
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
--- NOTE | 2016-12-26 10:15 | PDOC2 ---
AQUILINO ANDRADE RADIATION PROTECTION ENGINEER 12/26/16 1015: CONSULT Date of Admission DATE: 12/26/16 TIME: 09:56 Reason for Consult: cp Problem List Problems Medical Problems: (1) Chest pain Status: Acute History of Present Illness Mr Monge is a 56 year old male with history of hypertension, hyperlipidemia, CVA, AL by report with apparently normal remote heart cath as well as normal LV function by echo and normal perfusion by MPI in August 2016. He apparently presented to the ED last PM complaining of chest pain "like my prior heart attack" and was admitted for evaluation. This morning he reports that "I think I had a stroke but my heart is fine". He reports shooting pain in his left side , arm and shoulder with pain in his upper left chest, "like a crab pinching". He says he began to feel confused and that he had loss of sensation in his left arm and leg. At the time of exam he was up walking around in his room. He complains of pain in his right scapular region that makes him feel short of breath and is tender to the touch. He is requesting to eat and have something for the back pain. He denies orthopnea or PND currently. He reports functional capacity at about 100 feet. Past Medical History chronic pain syndrome Cardiovascular: HTN, AL, hyperipidemia, Other (DVT) Pulmonary: Asthma, Bronchitis CENTRAL NERVOUS SYSTEM: CVA, Seizure GI: GERD, Other (colon cancer, crohns disease) Heme/Onc: Anemia NOS Psych: Depression Musculoskeletal: low back pain (Chronic), Osteoarthritis Endocrine: Diabetes Echocardiogram in August 2016 with normal LV function and wall motion. MPI in August 2016 with normal perfusion. Past Surgical History Past Surgical History: Appendectomy, Cholecystectomy, Total knee replacement, Colon Resection, Other (colon cancer s/p radiation and chemo, c-spine surgery ) Family History non contributory Social History remote smoking history, denies significant ETOH, denies illicit drugs Current Medications Current Medications Aspirin 325 mg 325 mg 1X ONCE PO Last administered on 12/26/16 01:24; Start 12/26/16 at 01:30; Stop 12/26/16 at 01:31; Status DC Sodium Chloride (Iv Sodium Chloride 0.9% 1,000ml) 1,000 ml @ 1,000 mls/hr Q1H IV Last administered on 12/26/16 01:24; Start 12/26/16 at 01:30; Stop at 02:29; Status DC Nitroglycerin (Nitro-Bid Oint) 1 inch 1X ONCE TP Last administered on 01:25; Start 12/26/16 at 01:30; Stop 12/26/16 at 01:31; Status DC Morphine Sulfate (Morphine 10mg Syringe) 10 mg 1X ONCE SQ Last administered on 12/26/16 01:25; Start 12/26/16 at 01:30; Stop 12/26/16 at 01:31; Status DC Enoxaparin Sodium (Lovenox) 100 mg 1X ONCE SQ Last administered on 12/26/16 02:30; Start 12/26/16 at 02:30; Stop 12/26/16 at 03:04; Status DC Ondansetron HCl (Zofran) 4 mg PRN Q4HRS PRN IV NAUSEA/VOMITING; Start 12/26/16 at 02:30; Stop 12/27/16 at 02:29 Morphine Sulfate (Morphine 10mg Syringe) 10 mg 1X ONCE SQ Last administered on 12/26/16 03:34; Start 12/26/16 at 03:00; Stop 12/26/16 at 03:03; Status DC Enoxaparin Sodium (Lovenox 100mg Syringe) 100 mg STK-MED ONCE SQ ; Start at 02:37; Stop 12/26/16 at 02:38; Status DC Enoxaparin Sodium (Lovenox 100mg Syringe) 100 mg 1X ONCE SQ Last administered on 12/26/16 02:30; Start 12/26/16 at 02:30; Stop 12/26/16 at 03:04; Status DC Morphine Sulfate (Ms Contin) 60 mg BID PO Last administered on 12/26/16 09:39 ; Start 12/26/16 at 09:00 Alprazolam (Xanax) 1 mg PRN Q6HRS PRN PO ANXIETY / AGITATION Last administered on 12/26/16 06:09; Start 12/26/16 at 05:45 Oxycodone HCl (Roxicodone) 10 mg PRN Q6HRS PRN PO PAIN Last administered on 06:09; Start 12/26/16 at 05:45 Active Scripts Active Reported Oxycodone Hcl 10 Mg Tablet 10 Mg PO PRN Q6HRS PRN LAST DOSE GIVEN: DATE: TIME: NEXT DOSE DUE: DATE: TIME: Alprazolam 1 Mg Tablet 1 Mg PO PRN Q6HRS PRN LAST DOSE GIVEN: DATE: TIME: NEXT DOSE DUE: DATE: TIME: Symbicort 80-4.5 Mcg Inhaler (Budesonide/Formoterol Fumarate) 10.2 Gm Hfa.aer.ad 2 Puff IH BID LAST DOSE GIVEN: DATE: TIME: NEXT DOSE DUE: DATE: TIME: Alprazolam 0.5 Mg Tablet 0.5 Mg PO Q12HR PRN LAST DOSE GIVEN: DATE: TIME: NEXT DOSE DUE: DATE: TIME: Levetiracetam 250 Mg Tablet 500 Mg PO BID LAST DOSE GIVEN: DATE: TIME: NEXT DOSE DUE: DATE: TIME: Metoclopramide Hcl 10 Mg Tablet 10 Mg PO Q8HRS PRN LAST DOSE GIVEN: DATE: TIME: NEXT DOSE DUE: DATE: TIME: Hydralazine Hcl 10 Mg Tablet 10 Mg PO TID LAST DOSE GIVEN: DATE: TIME: NEXT DOSE DUE: DATE: TIME: Atorvastatin Calcium 40 Mg Tablet 40 Mg PO HS LAST DOSE GIVEN: DATE: TIME: NEXT DOSE DUE: DATE: TIME: Duloxetine Hcl 60 Mg Capsule.dr 60 Mg PO DAILY LAST DOSE GIVEN: DATE: TIME: NEXT DOSE DUE: DATE: TIME: Morphine Sulfate Er (Morphine Sulfate) 60 Mg Tablet.er 60 Mg PO BID LAST DOSE GIVEN: DATE: TIME: NEXT DOSE DUE: DATE: TIME: Morphine Sulfate 15 Mg Tablet 15 Mg PO Q8HRS PRN LAST DOSE GIVEN: DATE: TIME: NEXT DOSE DUE: DATE: TIME: Temazepam 30 Mg Capsule 30 Mg PO HS LAST DOSE GIVEN: DATE: TIME: NEXT DOSE DUE: DATE: TIME: Ondansetron Hcl 8 Mg Tablet 8 Mg PO Q8HRS PRN LAST DOSE GIVEN: DATE: TIME: NEXT DOSE DUE: DATE: TIME: Lisinopril 10 Mg Tablet 10 Mg PO DAILY last dose this morning next dose tomorrow Omeprazole 20 Mg Capsule.dr 20 Mg PO DAILY LAST DOSE GIVEN: DATE: TIME: NEXT DOSE DUE: DATE: TIME: Gabapentin 300 Mg Capsule 300 Mg PO BID LAST DOSE GIVEN: DATE: TIME: NEXT DOSE DUE: DATE: TIME: Lyrica (Pregabalin) 150 Mg Capsule 150 Mg PO TID LAST DOSE GIVEN: DATE: TIME: NEXT DOSE DUE: DATE: TIME: Amitriptyline Hcl 25 Mg Tablet 25 Mg PO HS LAST DOSE GIVEN: DATE: TIME: NEXT DOSE DUE: DATE: TIME: Folic Acid 1 Mg Tablet 1 Mg PO DAILY LAST DOSE GIVEN: DATE: TIME: NEXT DOSE DUE: DATE: TIME: Warfarin Sodium 5 Mg Tablet 5 Mg PO DAILY08 LAST DOSE GIVEN: DATE: TIME: NEXT DOSE DUE: DATE: TIME: Dilantin (Phenytoin Sodium Extended) 100 Mg Capsule 300 Mg PO BID LAST DOSE GIVEN: DATE: TIME: NEXT DOSE DUE: DATE: TIME: Allergies: Coded Allergies: cyclobenzaprine (Unverified Allergy, Intermediate, 02/28/15) naproxen (Unverified Allergy, Intermediate, 02/28/15) prednisone (Unverified Allergy, Intermediate, PSYCHOSIS, 02/28/15) I S O L A T I O N *CONTACT* (Verified Allergy, Unknown, 10/26/16) +MRSA screen 10-25-16 General: Alert, Oriented X3, Cooperative, No acute distress HEENT: Atraumatic, EOMI Lungs: Clear to auscultation Heart: Regular rate, Normal S1, Normal S2, Other (no gallops, clicks or rubs. No significant murmurs.) Abdomen: Normal bowel sounds, Soft, No tenderness Extremities: No cyanosis, No edema, Normal pulses Neuro: Normal speech Psych/Mental Status: Mental status NL, Mood NL VITALS Vital Signs Date Time Temp Pulse Resp B/P Pulse Ox O2 Delivery O2 Flow Rate FiO2 12/26/16 08:40 Room Air 12/26/16 06:09 18 12/26/16 05:50 98.4 46 115/65 96 Labs Laboratory Tests Test 12/26/16 01:00 12/26/16 01:03 12/26/16 01:19 12/26/16 07:33 White Blood Count 10.5x10^3/uL (4.0-11.0) Red Blood Count 4.20x10^6/uL (4.30-5.70) Hemoglobin 12.6g/dL (13.0-17.5) Hematocrit 38.5% (39.0-53.0) Mean Corpuscular Volume 92fL (79-100) Mean Corpuscular Hemoglobin 30pg (25-35) Mean Corpuscular Hemoglobin Concent 33g/dL (31-37) Red Cell Distribution Width 14.0% (11.5-14.5) Platelet Count 219x10^3/uL (140-400) Neutrophils (%) (Auto) 60% (31-73) Lymphocytes (%) (Auto) 27% (24-48) Monocytes (%) (Auto) 9% (0-9) Eosinophils (%) (Auto) 3% (0-3) Basophils (%) (Auto) 1% (0-3) Neutrophils # (Auto) 6.2x10^3uL (1.8-7.7) Lymphocytes # (Auto) 2.8x10^3/uL (1.0-4.8) Monocytes # (Auto) 1.0x10^3/uL (0.0-1.1) Eosinophils # (Auto) 0.3x10^3/uL (0.0-0.7) Basophils # (Auto) 0.1x10^3/uL (0.0-0.2) Prothrombin Time 20.0SEC (9.4-11.4) Prothromb Time International Ratio 1.9 (0.9-1.1) Activated Partial Thromboplast Time 32SEC (23-33) D-Dimer (Isabel) 0.31mg/L (0.00-0.50) Sodium Level 141mmol/L (136-145) Potassium Level 4.2mmol/L (3.5-5.1) Chloride Level 105mmol/L (98-107) Carbon Dioxide Level 29mmol/L (21-32) Anion Gap 7 (6-14) 16mmol/L (6-14) Blood Urea Nitrogen 15mg/dL (8-26) Creatinine 0.9mg/dL (0.7-1.3) Estimated GFR (Cockcroft-Gault) 86.7 Glucose Level 113mg/dL (70-99) 107mg/dL (60-99) Calcium Level 8.5mg/dL (8.5-10.1) Magnesium Level 2.3mg/dL (1.8-2.4) Total Bilirubin 0.1mg/dL (0.2-1.0) Direct Bilirubin 0.1mg/dL (0.0-0.2) Aspartate Amino Transf (AST/SGOT) 40U/L (15-37) Alanine Aminotransferase (ALT/SGPT) 61U/L (16-63) Alkaline Phosphatase 172U/L (46-116) Creatine Kinase 85U/L (39-308) Creatine Kinase MB (Mass) 1.0ng/mL (0.0-3.6) Creatine Kinase MB Relative Index 1.2% (0-4) Troponin I Quantitative < 0.017ng/mL (0-0.055) < 0.017ng/mL (0-0.055) KN-Ags-W-Type Natriuretic Peptide 89pg/mL (0-124) Total Protein 7.3g/dL (6.4-8.2) Albumin 3.5g/dL (3.4-5.0) Lipase 213U/L (73-393) Bedside Hemoglobin 13.3gm/dL Bedside Hematocrit 39% Bedside Sodium 142mmol/L (135-145) Bedside Potassium 4.0mmol/L (3.5-5.0) Bedside Chloride 103mmol/L (98-110) Bedside Total CO2 28mmol/L (23-32) Bedside Blood Urea Nitrogen 17mg/dL (8-26) Bedside Creatinine 0.7mg/dL (0.5-1.4) Bedside Ionized Calcium (Esme) 1.08mmol/L (1.13-1.32) Bedside Troponin I 0.01ng/ml (<0.08) Test 12/26/16 07:40 Glucose (Fingerstick) 79mg/dL (70-99) Images EKG - sinus rhythm without acute ischemic abnormalities CT head - IMPRESSION Chronic ischemic changes in the brain. No identified acute abnormality. Postoperative and degenerative changes in the cervical spine. No acute abnormality is seen. Evaluation of the soft tissue structures of the canal is limited without intrathecal contrast. Assessment/Plan 1. chest pain - atypical with normal CE x 2 sets. No acute abnormalities on EKG. Echocardiogram in August 2016 with normal LV function and wall motion. MPI in August 2016 with normal perfusion. Continue RF reduction including cholesterol management, blood pressure control and weight reduction. No further CV recommendations unless change in status. Feel free to call with any questions or concerns. 2. Hypertension - resume home medications with the exception of metoprolol secondary to bradycardia. Blood pressure currently well controlled. 3. hyperlipidemia - continue statin therapy. Lipids checked recently, will not repeat. 4. hx of coagulopathy with recurrent DVTs - continue warfarin as per PCP 5. Hx CVA with subsequent seizure disorder - CT without acute changes. Could consider neuro eval. 6. chronic pain syndrome - mgmt per PCP Problems: RICHARD SHARMA MD 12/26/16 1433: CONSULT Allergies: Coded Allergies: cyclobenzaprine (Unverified Allergy, Intermediate, 02/28/15) naproxen (Unverified Allergy, Intermediate, 02/28/15) prednisone (Unverified Allergy, Intermediate, PSYCHOSIS, 02/28/15) I S O L A T I O N *CONTACT* (Verified Allergy, Unknown, 10/26/16) +MRSA screen 10-25-16 Assessment/Plan Discussed with DECK ENGINEER, agree with above a/p. Problems: AQUILINO ANDRADE APRN Dec 26, 2016 10:15 RICHARD SHARMA MD Dec 26, 2016 14:33
--- NOTE | 2016-12-26 11:30 | EKG ---
[address] [address] Test Date: 2016-12-26 Test Time: 05:54:12 Pat Name: STACEY LOGAN Department: Room: 119 A Gender: M Hoop Bending Machine Operator: SHARIF : 1960 Requested By: LAKEISHA ESCALERA Order Number: [id number] Reading MD: Hai Erickson Measurements Intervals [place] Rate: 42 P: 90 MS: 170 QRS: 52 QRSD: 94 T: 51 QT: 480 QTc: 403 Interpretive Statements SINUS BRADYCARDIA Electronically Signed On 12-26-2016 16:02:54 CDT by Hai Erickson
[2016-12-26 13:29] LABS: THYROID STIM HORMONE (TSH) 3.738 uIU/mL (0.358-3.740)
--- NOTE | 2016-12-26 14:20 | RAD ---
Bilateral duplex carotid sonography History: Left arm and leg numbness, near syncope. Duplex sonography of the cervical portion of both carotid arteries was performed. Findings: Right side: Peak systolic flow velocity of the CCA is 112 cm/sec. Peak systolic flow velocity of the ICA is 89 cm/sec. The ICA/CCA ratio is 0.79. Peak end diastolic flow velocity of the ICA is 25 cm/sec. The peak systolic velocity of the ECA is 150 cm/sec. Calcified and noncalcified plaquing is seen at the carotid bulb. Left side: Peak systolic flow velocity of the CCA is 41 cm/sec. Peak systolic flow velocity of the ICA is 83 cm/sec. The ICA/CCA ratio is 0.82. Peak end diastolic flow velocity of the ICA is 21 cm/sec. Peak systolic flow velocity of the ECA is 109 cm/sec. Calcified and noncalcified plaquing is seen at the left carotid bulb. Vertebral arteries: Bilateral vertebral arteries demonstrate antegrade flow. Impression: 1. No hemodynamically significant internal carotid artery stenosis identified. Note: Stenosis calculations for Doppler studies are derived from validated velocity criteria which are known to correlate with NASCET methodology of determining stenosis.
[2016-12-26] MEDS ORDERED: ALPRAZOLAM 0.5 MG TABLET PO PRN (16:15)
[2016-12-26] MEDS ORDERED: MORPHINE IR 15 MG TABLET PO PRN (16:15)
[2016-12-26] MEDS ORDERED: METOCLOPRAMIDE 10 MG TABLET PO PRN (16:15)
[2016-12-26] MEDS ORDERED: ONDANSETRON ODT 4 MG TAB.RAPDIS PO PRN (16:30)
[2016-12-26] MEDS ORDERED: ALBUTEROL SULFATE 2.5 MG/3 ML NEBU. ONE (17:06)
[2016-12-26] MEDS ORDERED: WARFARIN 5 MG TABLET. PO ONE (17:30)
--- NOTE | 2016-12-26 17:49 | EKG ---
[address] [address] Test Date: 2016-12-26 Test Time: 16:38:23 Pat Name: STACEY LOGAN Department: Room: 119 A Gender: M Auto Engine Mechanic: SHARIF : 1960 Requested By: MARCO A GRIJALVA Order Number: [id number] Reading MD: Hai Erickson Measurements Intervals [place] Rate: 54 P: 49 [place]: 156 QRS: 65 QRSD: 102 T: 58 QT: 422 QTc: 402 Interpretive Statements SINUS RHYTHM NON-SPECIFIC ST/T CHANGES Electronically Signed On 01-01-2017 9:34:38 CDT by Hai Erickson
--- NOTE | 2016-12-26 20:02 | HP ---
ADMIT DATE: 12/26/2016 HISTORY OF PRESENT ILLNESS: The patient is a 56-year-old male patient who basically came to the Emergency Room complaining of chest pain that he describes like his previous heart attack and was admitted for further evaluation. He apparently is known to have coronary artery disease and has had his first troponin to be 0.01. His EKG showed that he has sinus bradycardia at 54 beats per minute. There are some nonspecific anterolateral changes, but no findings that are consistent with acute ST segment elevation myocardial infarction, and was admitted to do 2 more sets of cardiac enzymes and also to consult the cardiology team. After admission, he did complain of pain in his left side, mostly in his left arm and leg; however, the patient is able to walk around without any assistance or assistive devices and on questioning him further, he denied any nausea, vomiting, denied any diaphoresis. PAST MEDICAL HISTORY: Significant for hypertension, myocardial infarction, hyperlipidemia, bronchial asthma. He apparently has seizures, CVA, gastroesophageal reflux disease. He is also known to have Crohn's disease and colon cancer as well as anemia, depression, and chronic low back pain, generalized osteoarthritis and type 2 diabetes. PAST SURGICAL HISTORY: Significant for appendectomy, cholecystectomy, left total knee arthroplasty, colon resection as well as cardiac catheterization, but no stent deployment. FAMILY HISTORY: Unremarkable. SOCIAL HISTORY: He lives with his . He does not smoke but chews tobacco every other day. He does not drink alcohol or use any recreational drugs. ALLERGIES: HE IS ALLERGIC TO CYCLOBENZAPRINE, NAPROXEN AND PREDNISONE. MEDICATIONS: He is currently on following medications: He is on alprazolam 0.5 mg every 12 hours, alprazolam 1 mg every 6 hours, amitriptyline 25 mg at bedtime, atorvastatin calcium 40 mg at bedtime, Symbicort 80/4.5 mcg inhaler 2 puffs twice a day, duloxetine 60 mg once a day, folic acid 1 mg once a day, gabapentin 300 mg twice a day, hydralazine 10 mg 3 times a day, levetiracetam for Keppra 500 mg twice a day, lisinopril 10 mg once a day, metoclopramide 10 mg every 8 hours, morphine sulfate 15 mg every 8 hours, morphine sulfate extended release 60 mg twice a day, omeprazole 20 mg once a day, ondansetron 8 mg every 8 hours and oxycodone 10 mg every 6 hours, phenytoin sodium extended release 300 mg twice a day, pregabalin 150 mg 3 times a day, temazepam 30 mg at bedtime and warfarin 5 mg daily. PHYSICAL EXAMINATION: GENERAL: On arrival to the Emergency Room, he looked well and was clearly in no apparent distress, pale, but no jaundice, cyanosis or thyromegaly. No jugular venous distension. No limb edema. VITAL SIGNS: His heart rate was 50, blood pressure 142/78, temperature was 98, respiratory rate 20 and oxygen saturation was 98% on room air. HEAD, EYES, EARS, NOSE AND THROAT: Showed normocephalic, atraumatic. NECK: Supple. HEART: Showed normal first and second heart sounds with no gallop, rub or murmur. CHEST: Clear to auscultation. No crepitation or rhonchi. ABDOMEN: Distended, soft, nontender. No guarding or rigidity. No organomegaly. All hernial orifices intact. Bowel sounds normal. NEUROLOGIC: He is awake, alert, responding appropriately. Cranial nerves are intact. EXTREMITIES: He moves extremities without difficulty. He does ambulate without assistance or assistive devices. LABORATORY DATA: On admission showed a serum sodium 142, potassium 4, chloride 103, bicarbonate 28, anion gap of 16, BUN 17, creatinine 0.7. Estimated GFR was 107. His glucose was 79, calcium was 1.08. His first set of cardiac enzymes showed troponin to be 0.01. His white cell count was 10,500, hemoglobin 12.6, hematocrit 38, MCV 92, and platelet count 219,000. His prothrombin time was 20, INR 1.9, aPTT was 32 and D-dimer was 0.31. His chest x-ray showed no acute cardiopulmonary abnormalities detected. IMPRESSION: In summary, this is a 56-year-old male patient with multiple medical problems who was basically admitted for chest pain. He also developed left-sided tingling and numbness. PLAN: To consult the cardiology team as well as the Neurology and decide on further management. MARCO A GRIJALVA MD DR: DEMETRIA/yas JOB#: [id number] / [id number]
[2016-12-26] MEDS: GABAPENTIN 300 MG CAPSULE. PO SCH (20:16)
[2016-12-26] MEDS: PHENYTOIN SODIUM EXTENDED 100 MG CAPSULE PO SCH (20:17)
[2016-12-26] MEDS: PREGABALIN 150 MG CAPSULE PO SCH (20:17)
[2016-12-26] MEDS: LEVETIRACETAM 500 MG TABLET PO SCH (20:18)
[2016-12-26] MEDS: HYDRALAZINE 10 MG TABLET PO SCH (20:18)
[2016-12-26] MEDS: ALBUTEROL SULFATE 2.5 MG/3 ML NEBU. NEB SCH (20:28)
[2016-12-26] MEDS: BUDESONIDE 0.5 MG/2 ML NEBU NEB SCH (20:28)
[2016-12-26] MEDS ORDERED: TEMAZEPAM 30 MG CAPSULE PO SCH (21:00)
[2016-12-26] MEDS ORDERED: ATORVASTATIN CALCIUM 20 MG TABLET PO SCH (21:00)
[2016-12-26] MEDS ORDERED: NON FORMULARY ITEM (Budesonide/Formoterol Fumarate (Symbicort 80-4.5 Mcg Inhaler) 2 PUFF) IH SCH (21:00)
[2016-12-26] MEDS ORDERED: AMITRIPTYLINE HCL 25 MG TABLET PO SCH (21:00)
[2016-12-26 22:09] LABS: HCV ANTIBODY <0.1 s/co ratio (0.0-0.9); HEP A IGM ABDY Negative (Negative)
[2016-12-27 05:15] VITALS: BP 141/62
[2016-12-27] MEDS: ALBUTEROL SULFATE 2.5 MG/3 ML NEBU. NEB SCH ×3 (05:40→15:42)
[2016-12-27] MEDS: OXYCODONE IR 5 MG TABLET. PO PRN (06:54)
[2016-12-27 07:03] LABS: BASO % 1 % (0-3); EOS # 0.2 x10^3/uL (0.0-0.7); EOS % 4 % (0-3); HEMATOCRIT 32.4 % (39.0-53.0); HEMOGLOBIN 10.7 g/dL (13.0-17.5); LYMPH % 35 % (24-48); MEAN CORPUSCULAR HEMOGLOBIN 30 pg (25-35); MEAN CORPUSCULAR HGB CONC 33 g/dL (31-37); MEAN CORPUSCULAR VOLUME 91 fL (79-100); MONO # 0.6 x10^3/uL (0.0-1.1); MONO % 10 % (0-9); NEUT # 2.9 x10^3uL (1.8-7.7); NEUT % 50 % (31-73); PLATELET COUNT 153 x10^3/uL (140-400); RED BLOOD COUNT 3.56 x10^6/uL (4.30-5.70); RED CELL DISTRIBUTION WIDTH 14.2 % (11.5-14.5); WHITE BLOOD COUNT 5.8 x10^3/uL (4.0-11.0)
[2016-12-27 07:13] LABS: ALBUMIN/GLOBULIN RATIO 0.8 (1.0-1.7); C REACTIVE PROTEIN 7.4 mg/L (0-3.3); CALCIUM 8.4 mg/dL (8.5-10.1); CREATININE 0.8 mg/dL (0.7-1.3); GFR 99.3; POTASSIUM 3.7 mmol/L (3.5-5.1); TOTAL BILIRUBIN 0.2 mg/dL (0.2-1.0); TOTAL PROTEIN 6.7 g/dL (6.4-8.2)
[2016-12-27 08:10] LABS: SEDIMENTATION RATE 23 (0-15)
[2016-12-27] MEDS ORDERED: LISINOPRIL 10 MG TABLET PO SCH (09:00)
[2016-12-27] MEDS ORDERED: PANTOPRAZOLE 40 MG TABLET. PO SCH (09:00)
[2016-12-27] MEDS ORDERED: DULOXETINE HCL 60 MG CAPSULE.DR. PO SCH (09:00)
[2016-12-27] MEDS ORDERED: FOLIC ACID 1 MG TABLET PO SCH (09:00)
[2016-12-27] MEDS: PHENYTOIN SODIUM EXTENDED 100 MG CAPSULE PO SCH (09:16)
[2016-12-27] MEDS: PREGABALIN 150 MG CAPSULE PO SCH ×2 (09:17→14:08)
[2016-12-27] MEDS: HYDRALAZINE 10 MG TABLET PO SCH ×2 (09:17→14:07)
[2016-12-27] MEDS: MORPHINE ER 60 MG TABLET.ER PO SCH (09:18)
[2016-12-27] MEDS: GABAPENTIN 300 MG CAPSULE. PO SCH (09:18)
[2016-12-27] MEDS: LEVETIRACETAM 500 MG TABLET PO SCH (09:19)
[2016-12-27] MEDS: BUDESONIDE 0.5 MG/2 ML NEBU NEB SCH (10:09)
[2016-12-27 10:39] VITALS: BP 152/69
[2016-12-27] MEDS: ALPRAZOLAM 0.5 MG TABLET PO PRN ×2 (11:41→16:55)
[2016-12-27 15:23] VITALS: BP 129/80
[2016-12-27] MEDS ORDERED: WARFARIN 5 MG TABLET. PO SCH (16:00)
--- NOTE | 2016-12-27 17:13 | NUR ---
Discharge: Teaching verbal and written. Reviewed medication, follow-up, Chest pain, Chronic pain, Bradycardia, ect. Patient verbalized understanding. IV removed without complications, catheter tip in-tact, dressing applied. All belongings with patient. 1 written prescription given to patient Morphine IR (see chart) dispense 6 tablets. Call light with in reach. Will continue to monitor.
--- NOTE | 2016-12-27 22:07 | DS ---
DATE OF DISCHARGE: 12/27/2016 HOSPITAL COURSE: The patient is a 56-year-old male patient who came to the Emergency Room with a complaint of chest pain describing it as his "like my prior heart attack" and was admitted for evaluation. He also complained that he might have a stroke and did complain of shooting down his left side arm and shoulder with pain in his upper left chest. In any case, he was admitted to the Emergency Room and evaluated, has had 2 sets of cardiac enzymes that were negative. Apparently, he has had recent evaluation and has had remote heart catheterization, which showed that he has normal left ventricular function, and echocardiogram and normal perfusion by [facility] in 08/2016. In fact, the Cardiology did not recommend any further ischemic workup, not even checking his fasting lipid profile as they were done recently and they were all within normal range. He was seen by the neurologist also, did not recommend any further workup as his CT scans of the head and carotid Dopplers, both are normal. He has no obvious neurological deficit and he recommended physical and occupational therapy and therefore, a decision was made to discharge him home with home health to continue physical therapy as an outpatient. PHYSICAL EXAMINATION: GENERAL: When I examined him this afternoon, he was resting slightly propped up in bed, in no apparent respiratory distress. He was somewhat pale, but no jaundice, cyanosis, or thyromegaly. No jugular venous distension, no limb edema. VITAL SIGNS: His heart rate was 54, blood pressure 152/69, temperature was 98.4, respiratory rate 20 and oxygen saturation was 99% on 2 liters of oxygen. HEAD, EYES, EARS, NOSE AND THROAT: Showed normocephalic, atraumatic. NECK: Supple. HEART: Showed normal first and second heart sounds with no gallop, rub or murmur. CHEST: Clear to auscultation. No crepitation or rhonchi. ABDOMEN: Distended, soft, nontender. No guarding or rigidity. No organomegaly. All hernial orifices intact. Bowel sounds normal. NEUROLOGIC: He was awake, alert, responding appropriately. Cranial nerves are intact. EXTREMITIES: He moves extremities without difficulty, ambulates without assistance or assistive devices. His intake was 1840, output was 600. LABORATORY DATA: As of this morning showed a serum sodium 141, potassium 3.7, chloride 105, bicarbonate 30, anion gap of 6, BUN 10, creatinine 0.8, estimated GFR was 99 mL per minute. His glucose was 113. Calcium was 8.4. Total bilirubin, AST, ALT were normal. Alkaline phosphatase slightly elevated. His C-reactive protein was 7.4. Total protein was 6.7, albumin 3. His white cell count was 5800, hemoglobin 10.7, hematocrit 32.4, MCV 91 and platelet count of 153,000. His prothrombin time was 28.8 and INR of 2.8. His hepatitis A IgM antibodies, hepatitis B surface antigen, hepatitis B core IgM antibodies were all negative. His nasal screen for MRSA by PCR was negative. His chest x-ray showed no acute cardiopulmonary abnormality detected. CT scan of the head and cervical spine showed that he has chronic ischemic changes in the brain, no identified acute abnormality postoperative and degenerative changes in the cervical spine, no acute abnormality seen. Evaluation of soft tissue structures with canal is limited without intrathecal contrast. The patient did have bilateral carotid Doppler which showed that there is no hemodynamically significant internal carotid artery stenosis and bilateral vertebral artery demonstrated antegrade flow. DISCHARGE MEDICATIONS: The patient was discharged home to continue on following medications: Alprazolam 0.5 mg p.o. every 12 hours as needed for anxiety and agitation, alprazolam 1 mg every 6 hours as needed for agitation, amitriptyline 25 mg for insomnia, atorvastatin calcium 40 mg at bedtime, Symbicort 80/4.5 two puffs twice a day, duloxetine 60 mg once a day, folic acid 1 mg once a day, gabapentin 300 mg p.o. b.i.d., hydralazine 10 mg t.i.d., Keppra 500 mg p.o. b.i.d., lisinopril 10 mg once a day, metoclopramide 10 mg tablet every 8 hours, morphine sulfate 15 mg every 8 hours as needed, morphine sulfate extended release 60 mg twice a day, omeprazole 20 mg once a day, ondansetron 8 mg tablet every 8 hours, oxycodone 10 mg tablet every 6 hours, phenytoin sodium extended release for Dilantin 300 mg twice a day, pregabalin for Lyrica 150 mg 3 times a day, temazepam 30 mg at bedtime and warfarin sodium 5 mg daily. FINAL DISCHARGE DIAGNOSES: 1. Chest pain that is atypical with normal cardiac enzymes x 2, no acute abnormalities in the EKG. His echocardiogram in 08/2016 showed normal left ventricular systolic function and [facility] in 08/2016 was normal perfusion and no further cardiovascular workup is recommended. 2. Hypertension seems to be much better controlled. His beta blockers were discontinued because of severe bradycardia. 3. Hyperlipidemia, to continue with statin therapy. 4. Chronic pain syndrome with fibromyalgia, to continue with Lyrica and Neurontin. 5. History of coagulopathy and recurrent deep vein thromboses for which he is on Coumadin. 6. History of cerebrovascular accident with subsequent seizure disorder. The CT scan showed no evidence of any changes or intracranial abnormalities. He is on Keppra and phenytoin. 7. Chronic pain syndrome for which he is already on Lyrica and phenytoin and morphine slow release and immediate release as well as oxycodone. MARCO A GRIJALVA MD DR: DEMETRIA/yas JOB#: [id number] / [id number]
--- NOTE | 2016-12-28 01:36 | CONS ---
DATE OF CONSULTATION: 12/26/2016 REFERRING PHYSICIAN: Dr. Kelley. REASON FOR CONSULTATION: Pain, numbness and weakness of the left upper and lower extremities. HISTORY OF PRESENT ILLNESS: This is a 56-year-old right-handed white male, who was admitted through Emergency Room after he presented with chief complaints of left-sided chest pain aggravated by physical activities and associated with pain, numbness and paresthesia of the left upper and lower extremities. He denies any nausea, vomiting, diaphoresis. Initial workup to rule out cardiac origin of his chest pain, revealed normal EKG and 2 sets of cardiac enzymes. After admission, the patient started complaining of pain of the right shoulder blades and increased pain, numbness and paresthesia of the left upper and lower extremities. He has had a longstanding history of chronic lower back pain and chronic pain syndrome, required long use of narcotics as oxycodone received from his primary care physician in [place]. The patient denies headaches, visual disturbances, vertigo, dysarthria, dysphagia or weakness. INITIAL PAST MEDICAL HISTORY: Significant for coronary artery disease; however, his previous cardiac catheterization revealed no abnormalities, history of myocardial infarction, hypertension, hyperlipidemia, asthma, history of stroke and seizure, GERD, Crohn's disease, history of colon cancer, required colon resection, anemia, depressions and diabetes mellitus type 2, osteoarthritis. PAST SURGICAL HISTORY: Significant for cholecystectomy, appendectomy, left total knee replacement, status post cervical spine surgery. FAMILY HISTORY: Noncontributory. SOCIAL HISTORY: The patient is . He chews tobacco. He denies alcohol drinking or illicit drug use. CURRENT HOME MEDICATIONS: Alprazolam, amitriptyline, Lipitor, Symbicort, gabapentin, hydralazine, Keppra, lisinopril, metoclopramide, morphine, omeprazole, oxycodone, phenytoin, temazepam and warfarin. ALLERGIES: CYCLOBENZAPRINE, NAPROXEN, PREDNISONE. REVIEW OF SYSTEMS: A 10-point review of system was performed and consistent with generalized weakness, more prominent on the left side associated with chronic lower back pain, associated with numbness and paresthesia of the left lower extremity. Otherwise, as mentioned above in history of present illness. PHYSICAL EXAMINATION: GENERAL: Obese white male, not in acute distress. He weighs 227 pounds. VITAL SIGNS: Blood pressure 148/74, respiratory rate 20, pulse is 62 and regular, temperature 98.5, oxygen saturation is 97% on room air. HEENT: Normocephalic, atraumatic, otherwise, unremarkable. NECK: Supple. Negative for carotid bruit, lymphadenopathy or thyromegaly. LUNGS: Clear to A and P. CARDIOVASCULAR: Regular rate and rhythm, normal S1, S2. ABDOMEN: Soft. Bowel sounds positive. EXTREMITIES: Negative for cyanosis, clubbing or pitting edema. NEUROLOGIC: Mental Status: The patient is alert and oriented x 3. Speech is fluent. There is no language dysfunction. Memory is intact. Judgment and abstract thinking are normal. The patient denies hallucination or delusion. CRANIAL NERVES: Visual peters are full. The pupils are reactive to light and accommodation. The extraocular movements are intact. There is no nystagmus. There is no facial motor or sensory deficit. Hearing is intact bilaterally. The palate is elevated symmetrically. Sternocleidomastoid muscles are powerful bilaterally. The patient shrugs his shoulders symmetrically and protrudes his tongue in the midline without fasciculation or atrophy. MOTOR: No focal muscle bulk was seen. Tone is normal. The strength is 4/5 in the left upper and lower extremities. The strength also was 5/5 throughout. Sensory examination revealed diminished pinprick and light touch senses in patchy distributions in both lower extremities, more prominent on the left side. Deep tendon reflexes were symmetric and hypoactive with absent Achilles responses bilaterally. Gait: The stance is steady. The patient walks in the room without assistance. DIAGNOSTIC DATA: Nonenhanced head CT scan revealed chronic small vessel ischemic changes without acute intracranial process. CT of the cervical spine revealed status postoperative of the cervical spine and existing degenerative changes. Carotid Doppler study revealed no significant internal carotid artery stenosis. LABORATORY DATA: CBC revealed white blood cells of 10.5 thousand, hemoglobin 12.6, hematocrit 38.5, platelet count 219,000. Chemistry revealed sodium of 141, potassium 3.7, chloride 105, CO2 of 30, BUN 10, creatinine 0.8. Glucose 113, calcium 8.4, alkaline phosphatase is elevated at 140, CRP is high at 7.4. Liver enzymes are normal. PT is 20 and INR 1.9. IMPRESSION: 1. Longstanding history of low back pain, numbness and paresthesia of the upper and lower extremities with history of peripheral neuropathy and entrapment neuropathy at the wrist -- carpal tunnel syndrome, presented with exacerbation of his neck and lower back pain. 2. Chronic chest pain with normal workup for OK. 3. Multiple medical problems include diabetes mellitus, hypertension, hyperlipidemia, coronary artery disease, chronic neck and lower back pain, gastroesophageal reflux disease , depressions and anxiety. RECOMMENDATIONS: 1. Continue with current management initiated by Dr. Kelley. 2. Physical therapy as tolerated. M Josue HERNANDEZ MD DR: ALVARO/yas JOB#: [id number] / [id number]
== END 2016-12-27 17:30 | disposition home health service (06) | DRG 313 ==
LOC: ER 01:35 → 1 SOUTH 02:27
PROVIDERS: ADMIT Internal Medicine; ATTEND Internal Medicine
DX: R07.89 Other chest pain (principal); K50.90 Crohn's disease, unspecified, without complications; E78.5 Hyperlipidemia, unspecified; E78.00 Pure hypercholesterolemia, unspecified; F41.9 Anxiety disorder, unspecified; G40.909 Epilepsy, unspecified, not intractable, without status epilepticus; G89.4 Chronic pain syndrome; I10 Essential (primary) hypertension; I25.10 Atherosclerotic heart disease of native coronary artery without angina pectoris; J44.9 Chronic obstructive pulmonary disease, unspecified; K21.9 Gastro-esophageal reflux disease without esophagitis; M15.9 Polyosteoarthritis, unspecified; M79.7 Fibromyalgia; Z96.652 Presence of left artificial knee joint; G56.00 Carpal tunnel syndrome, unspecified upper limb; R00.1 Bradycardia, unspecified; E11.42 Type 2 diabetes mellitus with diabetic polyneuropathy; M54.5 Low back pain; F32.9 Major depressive disorder, single episode, unspecified; Z72.0 Tobacco use; I25.2 Old myocardial infarction; Z79.01 Long term (current) use of anticoagulants; Z85.038 Personal history of other malignant neoplasm of large intestine; Z86.718 Personal history of other venous thrombosis and embolism; Z86.73 Personal history of transient ischemic attack (TIA), and cerebral infarction without residual deficits; Z92.3 Personal history of irradiation; Z92.21 Personal history of antineoplastic chemotherapy; Z90.49 Acquired absence of other specified parts of digestive tract; Z88.8 Allergy status to other drugs, medicaments and biological substances
CPT/HCPCS: 36415; 70450; 71020; 72125; 80047; 80048; 80053; 80061; 80074; 80076; 82553; 82947; 83690; 83735; 83880; 84443; 84484; 85027; 85379; 85610; 85651; 85730; 86140; 87641; 93005; 93880; 94250; 94640; 94760; 96360; 96372; G0238; J1650; J2270; J7613; J7626; 99285-25; J7030

== ENCOUNTER 2016-12-29 16:53 | Emergency (ER) | payer MEDICARE ==
[~2016-12-29] VITALS: Ht 175.3 cm; Wt 103.6 kg
[~2016-12-29 16:53] MED LIST changes: +METO25TA4 PO; +OXYC10TA PO
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
[2016-12-29 17:06] VITALS: BP 152/56
[2016-12-29] MEDS: IPRATRPIUM/ALBUTEROL 0.5/2.5MG 3 ML NEBU. NEB ONE (17:13)
[2016-12-29] MEDS: ALBUTEROL SULFATE 2.5 MG/3 ML NEBU. NEB ONE (18:09)
[2016-12-29 18:25] LABS: BASO # 0.1 x10^3/uL (0.0-0.2); BASO % 1 % (0-3); EOS # 0.2 x10^3/uL (0.0-0.7); EOS % 1 % (0-3); HEMOGLOBIN 11.4 g/dL (13.0-17.5); LYMPH # 1.1 x10^3/uL (1.0-4.8); LYMPH % 7 % (24-48); MEAN CORPUSCULAR HEMOGLOBIN 29 pg (25-35); MEAN CORPUSCULAR HGB CONC 32 g/dL (31-37); MEAN CORPUSCULAR VOLUME 92 fL (79-100); MONO # 0.9 x10^3/uL (0.0-1.1); MONO % 5 % (0-9); NEUT # 13.6 x10^3uL (1.8-7.7); NEUT % 86 % (31-73); PLATELET COUNT 205 x10^3/uL (140-400); RED BLOOD COUNT 3.94 x10^6/uL (4.30-5.70); RED CELL DISTRIBUTION WIDTH 14.2 % (11.5-14.5)
[2016-12-29 18:27] LABS: WHITE BLOOD COUNT 15.9 x10^3/uL (4.0-11.0)
[2016-12-29 18:31] LABS: ALBUMIN 3.5 g/dL (3.4-5.0); ALBUMIN/GLOBULIN RATIO 0.9 (1.0-1.7); ALK PHOS 156 U/L (46-116); ALT (SGPT) 44 U/L (16-63); ANION GAP 6 (6-14); AST (SGOT) 27 U/L (15-37); BLOOD UREA NITROGEN 15 mg/dL (8-26); BUN/CREATININE RATIO 17 (6-20); CALCIUM 8.4 mg/dL (8.5-10.1); CARBON DIOXIDE 30 mmol/L (21-32); CHLORIDE 100 mmol/L (98-107); CREATININE 0.9 mg/dL (0.7-1.3); GFR 86.7; GLUCOSE 157 mg/dL (70-99); PHENY 7.5 mcg/mL (10.0-20.0); POTASSIUM 4.4 mmol/L (3.5-5.1); SODIUM 136 mmol/L (136-145); TOTAL BILIRUBIN 0.3 mg/dL (0.2-1.0); TOTAL PROTEIN 7.5 g/dL (6.4-8.2)
[2016-12-29 18:33] LABS: ACETAMIN < 2.0 mcg/mL (10-30); ETHANOL < 10 mg/dL (0-10); SALIC 1.2 mg/dL (2.8-20.0)
--- NOTE | 2016-12-29 18:49 | RAD ---
Examination: CT head without contrast. HISTORY History of injury, headache, abrasion COMPARISON 12/26/2016. TECHNIQUE Axial CT images of the head was performed without contrast. Exposure: One or more of the following dose reduction technique were utilized for this examination: 1. Automated exposure control. 2.Adjustment of MA and /or KV according to patient size. 3. Use of iterative reconstruction technique. Findings: There is no evidence of midline shift. There is no acute intracranial bleed or extra-axial fluid collection identified. There is a large low attenuation region identified in the right parietal region likely old infarct grossly similar to prior exam. The lateral ventricles, 3rd ventricle, 4th ventricle appropriate for age. The basal cisterns are not effaced. The paranasal sinuses, mastoid air cells are clear. Impression: 1. No acute intracranial findings. 2. Chronic ischemic changes identified in the right parietal region grossly similar to prior exam. Electronically signed by: Narciso Elaine (Dec 29, 2016 18:48:43)
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
[2016-12-29 19:33] LABS: % BANDS 2 % (0-9); % LYMPHS 7 % (24-48); % MONOS 7 % (0-10); % SEGS 84 % (35-66); PLT ESTIMATE ADEQUATE (ADEQUATE)
[2016-12-29] MEDS: ONDANSETRON ODT 4 MG TAB.RAPDIS PO ONE (20:04)
[2016-12-29 20:20] LABS: AMPHETAMINE/METHAMPHETAMINE NEG (NEG); BARBITURATES NEG (NEG); BENZODIAZEPINES NEG (NEG); CANNABINOIDS NEG (NEG); COCAINE NEG (NEG); METHADONE NEG (NEG); OPIATES POS (NEG); PHENCYCLIDINE NEG (NEG)
== END 2016-12-29 20:41 | disposition home or self-care (01) ==
LOC: ER 16:53
DX: S00.83XA Contusion of other part of head, initial encounter (principal); T40.2X1A Poisoning by other opioids, accidental (unintentional), initial encounter; E11.9 Type 2 diabetes mellitus without complications; E78.00 Pure hypercholesterolemia, unspecified; E78.5 Hyperlipidemia, unspecified; F41.9 Anxiety disorder, unspecified; I25.10 Atherosclerotic heart disease of native coronary artery without angina pectoris; I11.9 Hypertensive heart disease without heart failure; J44.9 Chronic obstructive pulmonary disease, unspecified; M79.7 Fibromyalgia; K58.9 Irritable bowel syndrome, unspecified; I25.2 Old myocardial infarction; F17.210 Nicotine dependence, cigarettes, uncomplicated; K92.2 Gastrointestinal hemorrhage, unspecified; Z79.01 Long term (current) use of anticoagulants; Z88.8 Allergy status to other drugs, medicaments and biological substances; Z86.73 Personal history of transient ischemic attack (TIA), and cerebral infarction without residual deficits; Z88.6 Allergy status to analgesic agent; Z91.041 Radiographic dye allergy status; Y08.89XA Assault by other specified means, initial encounter; Y93.89 Activity, other specified; Y92.89 Other specified places as the place of occurrence of the external cause; Y99.8 Other external cause status
CPT/HCPCS: 36415; 70450; 80053; 80185; 80305; 80320; 82550; 83605; 84484; 85007; 85027; 85610; 85730; 87040; 94640; 99285; G6038; J7613; J7620; Q0162; G0480; G0481; 80196

== ENCOUNTER 2017-01-10 23:47 | Emergency (ER) | payer MEDICARE ==
[~2017-01-10] VITALS: Ht 175.3 cm; Wt 103.6 kg
[~2017-01-10 23:47] MED LIST changes: +CLIN300C8 PO; -CLIN300C86 PO; -ONDA-36 PO; +ONDA8TAB14 PO
[2017-01-10 23:48] VITALS: BP 152/80
[2017-01-11] MEDS ORDERED: MORPHINE SULFATE 4 MG/ML DISP.SYRIN. IV ONE (00:30)
[2017-01-11] MEDS ORDERED: ONDANSETRON PF 4 MG/2 ML VIAL. IV ONE (00:30)
[2017-01-11 03:06] LABS: BASO % 1 % (0-3); EOS % 3 % (0-3); HEMOGLOBIN 11.5 g/dL (13.0-17.5); LYMPH % 20 % (24-48); MEAN CORPUSCULAR HEMOGLOBIN 29 pg (25-35); MEAN CORPUSCULAR HGB CONC 33 g/dL (31-37); MEAN CORPUSCULAR VOLUME 89 fL (79-100); MONO % 7 % (0-9); NEUT % 69 % (31-73); PLATELET COUNT 232 x10^3/uL (140-400); RED BLOOD COUNT 3.93 x10^6/uL (4.30-5.70); RED CELL DISTRIBUTION WIDTH 14.4 % (11.5-14.5); WHITE BLOOD COUNT 11.5 x10^3/uL (4.0-11.0)
[2017-01-11 03:07] LABS: BASO # 0.1 x10^3/uL (0.0-0.2); EOS # 0.3 x10^3/uL (0.0-0.7); LYMPH # 2.2 x10^3/uL (1.0-4.8); MONO # 0.9 x10^3/uL (0.0-1.1); NEUT # 7.9 x10^3uL (1.8-7.7)
[2017-01-11 03:11] LABS: CALCIUM 8.4 mg/dL (8.5-10.1); CREATININE 0.8 mg/dL (0.7-1.3); GFR 99.3; POTASSIUM 4.2 mmol/L (3.5-5.1)
--- NOTE | 2017-01-11 03:12 | ED.ADGEN ---
Past History Past Medical History: Diabetes, Seizure, TIA, Other Past Surgical History: Other Smoking: Cigarettes, Quit Greater Than 1 Year Alcohol Use: None Drug Use: None Adult General Chief Complaint Chief Complaint Seizure HPI HPI Patient is a 56 year old male who presents with seizure. He states he has a seizure disorder and is on Keppra and Dilantin. He states he's had vomiting ago. Last 2 days. He states he's been taking his medicine is been throwing up. He does not see any pill fragments when he vomits but is throwing up for 5 times a day. Denies any blood in his vomit. He states he has abdominal pain that's constant over the last 2 days. He states he has a history of Crohn' s disease. He denies being on any medications for Crohn's disease. He states he' s had abdominal surgery secondary for this. He denies any fevers chills. He states his abdominal pain hurts in the right lower quadrant and nothing makes it better or worse, he states it's a sharp stabbing pain. Review of Systems Review of Systems Constitutional: Denies fever or chills [] Eyes: Denies change in visual acuity, redness, or eye pain [] HENT: Denies nasal congestion or sore throat [] Respiratory: Denies cough or shortness of breath [] Cardiovascular: No additional information not addressed in HPI [] GI: Positive for abdominal pain, nausea, vomiting,, denies any bloody stools or diarrhea [] : Denies dysuria or hematuria [] Musculoskeletal: Denies back pain or joint pain [] Integument: Denies rash or skin lesions [] Neurologic: Denies headache, focal weakness or sensory changes [] Endocrine: Denies polyuria or polydipsia [] Current Medications Current Medications Current Medications Medications (Trade) Dose Ordered Sig/Perfecto Start Time Stop Time Status Last Admin Dose Admin Info (Do NOT chart on this entry -- for MONITORING) 1 each PRN DAILY PRN 01/11/17 03:15 01/13/17 03:14 Iohexol (Omnipaque 240 Mg/ml) 30 ml 1X ONCE 01/11/17 03:30 01/11/17 03:31 01/11/17 03:23 30 ML Morphine Sulfate (Morphine 4mg Syringe) 4 mg 1X ONCE 01/11/17 00:30 01/11/17 03:11 DC 01/11/17 01:10 4 MG Ondansetron HCl (Zofran) 4 mg 1X ONCE 01/11/17 00:30 01/11/17 03:11 DC 01/11/17 01:10 4 MG Allergies Allergies Allergies Coded Allergies Type Severity Reaction Last Updated Verified cyclobenzaprine Allergy Intermediate 02/28/15 No naproxen Allergy Intermediate 02/28/15 No prednisone Allergy Intermediate PSYCHOSIS 02/28/15 No I S O L A T I O N *CONTACT* Allergy Unknown 10/26/16 Yes Physical Exam Physical Exam Constitutional: Well developed, well nourished, no acute distress, non-toxic appearance. [] HENT: Normocephalic, atraumatic, bilateral external ears normal, oropharynx moist, no oral exudates, nose normal. [] Eyes: PERRLA, EOMI, conjunctiva normal, no discharge. [] Neck: Normal range of motion, no tenderness, supple, no stridor. [] Cardiovascular:Heart rate regular rhythm, no murmur [] Lungs & Thorax: Bilateral breath sounds clear to auscultation [] Abdomen: Bowel sounds normal, soft, I'll tender to palpation in the right lower quadrant and suprapubic area, no rebound or guarding, no masses, no pulsatile masses. [] Skin: Warm, dry, no erythema, no rash. [] Back: No tenderness, no CVA tenderness. [] Extremities: No tenderness, no cyanosis, no clubbing, ROM intact, no edema. [] Neurologic: Alert and oriented X 3, normal motor function, normal sensory function, no focal deficits noted. [] Psychologic: Affect normal, judgement normal, mood normal. [] Current Patient Data Vital Signs Vital Signs Date Time Temp Pulse Resp B/P (MAP) Pulse Ox O2 Delivery O2 Flow Rate FiO2 01/11/17 01:10 20 96 Room Air 01/10/17 23:48 97.9 49 Lab Results Laboratory Tests Test 01/11/17 01:10 White Blood Count 11.5 x10^3/uL (4.0-11.0) H Red Blood Count 3.93 x10^6/uL (4.30-5.70) L Hemoglobin 11.5 g/dL (13.0-17.5) L Hematocrit 35.0 % (39.0-53.0) L Mean Corpuscular Volume 89 fL (79-100) Mean Corpuscular Hemoglobin 29 pg (25-35) Mean Corpuscular Hemoglobin Concent 33 g/dL (31-37) Red Cell Distribution Width 14.4 % (11.5-14.5) Platelet Count 232 x10^3/uL (140-400) Neutrophils (%) (Auto) 69 % (31-73) Lymphocytes (%) (Auto) 20 % (24-48) L Monocytes (%) (Auto) 7 % (0-9) Eosinophils (%) (Auto) 3 % (0-3) Basophils (%) (Auto) 1 % (0-3) Neutrophils # (Auto) 7.9 x10^3uL (1.8-7.7) H Lymphocytes # (Auto) 2.2 x10^3/uL (1.0-4.8) Monocytes # (Auto) 0.9 x10^3/uL (0.0-1.1) Eosinophils # (Auto) 0.3 x10^3/uL (0.0-0.7) Basophils # (Auto) 0.1 x10^3/uL (0.0-0.2) Prothrombin Time 16.0 SEC (9.4-11.4) H Prothrombin Time INR 1.6 (0.9-1.1) H PTT 29 SEC (23-33) Sodium Level 143 mmol/L (136-145) Potassium Level 4.2 mmol/L (3.5-5.1) Chloride Level 106 mmol/L (98-107) Carbon Dioxide Level 31 mmol/L (21-32) Anion Gap 6 (6-14) Blood Urea Nitrogen 12 mg/dL (8-26) Creatinine 0.8 mg/dL (0.7-1.3) Estimated GFR (Cockcroft-Gault) 99.3 Glucose Level 100 mg/dL (70-99) H Lactic Acid Level 1.6 mmol/L (0.4-2.0) Calcium Level 8.4 mg/dL (8.5-10.1) L Total Bilirubin 0.2 mg/dL (0.2-1.0) Direct Bilirubin 0.1 mg/dL (0.0-0.2) Aspartate Amino Transferase (AST) 22 U/L (15-37) Alanine Aminotransferase (ALT) 34 U/L (16-63) Alkaline Phosphatase 144 U/L (46-116) H Troponin I Quantitative < 0.017 ng/mL (0-0.055) SF-Qrj-G-Type Natriuretic Peptide 185 pg/mL (0-124) H Total Protein 7.4 g/dL (6.4-8.2) Albumin 3.2 g/dL (3.4-5.0) L Lipase 184 U/L (73-393) EKG EKG EKG shows sinus bradycardia with a rate of 45 beats were without any ST elevations or T-wave inversions, normal axis, QTC 379 ms, as interpreted by me. EKG similar to his on December 26, 2016 Radiology/Procedures Radiology/Procedures CT abdomen pelvis with by mouth contrast was read out by the radiologist as no acute process, one view chest x-ray also nonacute process. Course & Med Decision Making Course & Med Decision Making Pertinent Labs and Imaging studies reviewed. (See chart for details) Labs did not show any acute issues. We were on computer down time during his visit, so the CT scan and labs will likely be scanned and later. His heart rate was in the 45 bpm range which he states is normal for him. He's been up and ambulating around the department without any chest pain or lightheadedness. He received IV fluids, morphine, Zofran, I did have to place an EJ nor to obtain IV access. His creatinine is 0.7 so, sodium 143, potassium 4.2, troponin less than 0.017, lipase 184, INR 1.6, white blood cells 11.5, hemoglobin 11.5, lactic acid 1.6. The patient states he is on Coumadin secondary to blood clots he's had bruises encouraged to follow-up with his primary care physician in the next 3 days, discharged return ER if worsening pain, uncontrolled nausea vomiting, or other concerns. He states he feels better after IV fluids is agreeable being discharged. He did request is prescription for Tylenol 3's one tablet every 6 hours #10 and Zofran. He states he's on morphine at home and has been irritating his stomach and he wants something for one or 2 days to help with stomach him down. Final Impression Final Impression Seizure disorder Abdominal pain Problems: Mario Disclaimer Nanetteon Disclaimer This electronic medical record was generated, in whole or in part, using a voice recognition dictation system. MATEO ESCALANTE MD January 11, 2017 03:12
[2017-01-11 03:14] LABS: ALBUMIN 3.2 g/dL (3.4-5.0); TOTAL BILIRUBIN 0.2 mg/dL (0.2-1.0); TOTAL PROTEIN 7.4 g/dL (6.4-8.2)
[2017-01-11 03:15] LABS: DIRECT BILIRUBIN 0.1 mg/dL (0.0-0.2)
[2017-01-11] MEDS ORDERED: CONTRAST GIVEN MC PRN (03:15)
[2017-01-11] MEDS ORDERED: ACET-704 PO (03:19)
[2017-01-11] MEDS ORDERED: ONDA4TAB10 SL (03:20)
[2017-01-11] MEDS ORDERED: IOHEXOL 240 MG/ML 50ML VIAL. PO ONE (03:30)
--- NOTE | 2017-01-11 12:44 | RAD ---
[facility] Exam performed: CT abdomen and pelvis without contrast. History: Weakness, back pain and dizziness tonight. Date of service: 01/11/17. Comparison: CT abdomen pelvis from 02/28/15. Technique: Helical acquisitions are obtained through the abdomen and pelvis without IV contrast. Sagittal and coronal reformatted images are obtained and reviewed. Findings: Linear scarring seen in the left lung base. Right lung base is normal. Visualized heart is normal. Lack of IV contrast limits evaluation of abdominal viscera, however the liver, spleen and pancreas appear normal. Cholecystectomy. Both adrenal glands and bilateral kidneys are normal in size. There is a approximately 2 mm nonobstructing calculus in the left midpole. Tiny stable cysts in the left superior renal pole measuring up to 10 mm. Aorta is normal in caliber demonstrating mild atheromatous calcification. No retroperitoneal or mesenteric lymphadenopathy seen. Small and large bowel loops are nondilated and unremarkable. Diffuse colonic diverticulosis. Appendix is not clearly seen. No inflammatory changes are seen in the right lower quadrant. Urinary bladder is distended. Diffuse colonic diverticulosis without acute diverticulitis. No free or focal fluid collections or pelvic lymphadenopathy seen. Bones are normal. Mild spondylotic changes are seen in the thoracolumbar spine. Impression: 1. No acute intra-abdominal or pelvic process detected. 2. Approximately 2 mm nonobstructing calculus in the left renal midpole 3. Extensive atheromatous aortic calcification without aneurysm. 4. Stable tiny left renal cysts. PQRS Compliance Statement: One or more of the following individualized dose reduction techniques were utilized for this examination: 1. Automated exposure control 2. Adjustment of the mA and/or kV according to patient size 3. Use of iterative reconstruction technique [facility]
--- NOTE | 2017-01-11 12:45 | RAD ---
[facility] Exam performed: 2 views of the chest. Indication: Weakness, dizziness and chest pain with syncopal episode tonight Date of Service:01/11/2017 8:08 AM . Comparison : 2 views chest from 12/26/16 Findings: PA and lateral radiographs of the chest are obtained. Heart size is within upper limits of normal. The pulmonary vascularity is unremarkable. The lungs are clear. No pleural fluid is seen. The visualized osseous structures are unremarkable. There are postoperative changes in the lower cervical spine. Impression: No acute findings seen. MTDD
== END 2017-01-11 03:30 | disposition home or self-care (01) ==
LOC: ER 23:47
DX: G40.909 Epilepsy, unspecified, not intractable, without status epilepticus (principal); R10.31 Right lower quadrant pain; E11.9 Type 2 diabetes mellitus without complications; Z86.73 Personal history of transient ischemic attack (TIA), and cerebral infarction without residual deficits; Z87.891 Personal history of nicotine dependence; Z88.8 Allergy status to other drugs, medicaments and biological substances; Z88.6 Allergy status to analgesic agent; Z91.041 Radiographic dye allergy status
CPT/HCPCS: 36415; 71020; 74176; 80048; 80076; 83605; 83690; 83880; 84484; 85027; 85610; 85730; 96374; 96375; 99285; J2270; J2405; Q9966

== ENCOUNTER 2017-01-22 16:11 | Emergency (ER) | payer MEDICARE ==
[~2017-01-22 16:11] MED LIST changes: +ACET-704 PO; +ONDA4TAB10 SL
--- NOTE | 2017-01-22 16:48 | PHYS DOC ---
Past History Past Medical History: Diabetes, Seizure, TIA, Other Past Surgical History: Other Smoking: Cigarettes, Quit Greater Than 1 Year Alcohol Use: None Drug Use: None Adult General Chief Complaint Chief Complaint: BACK PAIN OR INJURY HPI HPI This 48-year-old man presents history of slipped on a stick and fell right onto his buttocks. He presents now with severe pain in his low back. States feels a little numbness going down his lower legs and is having trouble walking because of the severe pain. He also bumped his forehead and has pain in his neck. He has a history of having been admitted to [facility] on 01/10/2017 where he was admitted with diabetes she is a disorder TIA. He presents now because his pain has been severe in his lower back Review of Systems Review of Systems Constitutional: Denies fever or chills [] Eyes: Denies change in visual acuity, redness, or eye pain [] HENT: Denies nasal congestion or sore throat [] Respiratory: Denies cough or shortness of breath [] Cardiovascular: No additional information not addressed in HPI [] GI: Patient states he has chronic abdominal pain from his Crohn's disease] : Denies dysuria or hematuria [] Musculoskeletal: Complains of severe back pain or joint pain [] Integument: Denies rash or skin lesions [] Neurologic: He denies headache but states he has some vague numbness in the posterior aspect of his legs Endocrine: Denies polyuria or polydipsia [] Allergies Allergies Allergies Coded Allergies Type Severity Reaction Last Updated Verified cyclobenzaprine Allergy Intermediate 02/28/15 No naproxen Allergy Intermediate 02/28/15 No prednisone Allergy Intermediate PSYCHOSIS 02/28/15 No I S O L A T I O N *CONTACT* Allergy Unknown 10/26/16 Yes Physical Exam Physical Exam Constitutional: Well developed, well nourished, no acute distress, non-toxic appearance. Patient is diaphoretic and appears to be in pain [] HENT: Normocephalic, atraumatic, bilateral external ears normal, oropharynx moist, no oral exudates, nose normal. [] Eyes: PERRLA, EOMI, conjunctiva normal, no discharge. [] Neck: Normal range of motion, no tenderness, supple, no stridor. He has great deal of tenderness to movement of his neck] Cardiovascular:Heart rate regular rhythm, no murmur [] Lungs & Thorax: Bilateral breath sounds clear to auscultation [] Abdomen: Bowel sounds normal, soft, no tenderness, no masses, no pulsatile masses. [] Skin: Warm, dry, no erythema, no rash. [] Back: Nss, severe back tenderness to palpation Extremities: No tenderness, no cyanosis, no clubbing, ROM intact, no edema. [] Neurologic: Alert and oriented X 3, normal motor function, normal sensory function, no focal deficits noted. [] Psychologic: Affect normal, judgement normal, mood normal. [] EKG EKG [] Radiology/Procedures Radiology/Procedures [] Impressions: Head trauma cervical spine trauma low back trauma Course & Med Decision Making Course & Med Decision Making Pertinent Labs and Imaging studies reviewed. Lab results and T scan of the head and cervical spine and lumbar spine are still pending and will be evaluated by Dr. Moser will make the appropriate disposition [] Dragon Disclaimer Dragon Disclaimer This chart was dictated in whole or in part using Voice Recognition software in a busy, high-work load, and often noisy Emergency Department environment. It may contain unintended and wholly unrecognized errors or omissions. Departure Departure: Referrals: CORTEZ BURCIAGA (PCP) KAMRYN LAM MD January 22, 2017 16:48
[2017-01-22 17:42] LABS: BASO % 0 % (0-3); EOS # 0.2 x10^3/uL (0.0-0.7); EOS % 2 % (0-3); HEMATOCRIT 42.4 % (39.0-53.0); HEMOGLOBIN 13.9 g/dL (13.0-17.5); LYMPH # 2.3 x10^3/uL (1.0-4.8); LYMPH % 27 % (24-48); MEAN CORPUSCULAR HEMOGLOBIN 29 pg (25-35); MEAN CORPUSCULAR HGB CONC 33 g/dL (31-37); MEAN CORPUSCULAR VOLUME 90 fL (79-100); MONO # 0.8 x10^3/uL (0.0-1.1); MONO % 10 % (0-9); NEUT % 61 % (31-73); PLATELET COUNT 281 x10^3/uL (140-400); RED BLOOD COUNT 4.73 x10^6/uL (4.30-5.70); RED CELL DISTRIBUTION WIDTH 14.6 % (11.5-14.5); WHITE BLOOD COUNT 8.2 x10^3/uL (4.0-11.0)
[2017-01-22 17:54] LABS: ALBUMIN 3.7 g/dL (3.4-5.0); ALBUMIN/GLOBULIN RATIO 0.8 (1.0-1.7); CALCIUM 8.9 mg/dL (8.5-10.1); CREATININE 0.8 mg/dL (0.7-1.3); GFR 99.3; TOTAL BILIRUBIN 0.2 mg/dL (0.2-1.0); TOTAL PROTEIN 8.5 g/dL (6.4-8.2)
--- NOTE | 2017-01-22 17:57 | RAD ---
PROCEDURE CT head and cervical spine without contrast. HISTORY Fall this p.m., previous history seizures, previous cervical spine surgery TECHNIQUE Noncontrast CT imaging was performed of the head and cervical spine, multiplanar reconstruction images of the cervical spine submitted. Exposure: One or more of the following individualized dose reduction techniques were utilized for this exam: 1. Automated exposure control. 2. Adjustment of the mA and/or kV according to patient size. 3. Use of iterative reconstruction technique. COMPARISON December 29, 2016 CT head exam and December 26, [address] exam. FINDINGS Head: No acute intracranial hemorrhage is identified. There is again extensive low-density of the right cerebral hemisphere centered in the right frontal parietal lobes compatible with previous infarct. Ventricular size is stable. There is no new intra-axial mass effect or midline shift. Mastoid air cells and visualized paranasal sinuses are aerated. Cervical spine CT: There again has been anterior cervical fusion at C5, C6, C7, at least partial interbody fusion at these levels. Cervical vertebral body stature is unchanged. AP alignment is unchanged. No acute cervical spine fracture is identified. Multilevel cervical facet degenerative change contributes to at least moderate narrowing of the left C2-3 neural foramen. There is also moderate to severe right and mild left C5-C6 neural foramina compromise and moderate right and mild left C6-7 neural foramina compromise. Atlantoaxial distance is within normal limits, associated degenerative change. There is some paraseptal emphysema most notable near the right lung apex, also centrilobular emphysema. There is atherosclerotic calcification of carotid arteries in the neck bilaterally. IMPRESSION 1. No acute cervical spine fracture is identified. There again has been anterior cervical fusion C5, C6, C7. There is multilevel cervical neural foramina compromise. 2. No acute intracranial abnormality is identified. There is again large area of encephalomalacia of the right cerebral hemisphere of the frontal parietal lobes compatible with previous infarct, cortical involvement. Electronically signed by: René Corona MD (January 22, 2017 17:55:45)
[2017-01-22] MEDS ORDERED: MORPHINE SULFATE 4 MG/ML DISP.SYRIN. IV ONE (18:00)
[2017-01-22] MEDS ORDERED: ONDANSETRON PF 4 MG/2 ML VIAL. IV ONE (18:00)
--- NOTE | 2017-01-22 18:10 | RAD ---
PROCEDURE CT lumbar spine without contrast. HISTORY Fall this p.m. with pain in low back TECHNIQUE Noncontrast CT imaging was performed of the lumbar spine, multiplanar reconstruction images submitted. Exposure: One or more of the following individualized dose reduction techniques were utilized for this exam: 1. Automated exposure control. 2. Adjustment of the mA and/or kV according to patient size. 3. Use of iterative reconstruction technique. COMPARISON None FINDINGS Lumbar vertebral body stature is overall preserved, tiny superior L5 Schmorl's node. No acute lumbar spine fracture is identified. There is mild degenerative disc disease and spondylosis L3-4 and L5-S1. No significant osseous lumbar neural foramina compromise is identified. There is likely mild narrowing of the far lateral recesses at L4-5 and questionably at L3-4. There is multilevel lumbar facet degenerative change greater inferiorly. There is some scattered atherosclerotic calcification of the visualized abdominal aorta. IMPRESSION No acute lumbar spine fracture is identified. There is minimal spondylosis and degenerative disc disease. Electronically signed by: René Corona MD (January 22, 2017 18:09:32)
[2017-01-22] MEDS ORDERED: ONDANSETRON ODT 4 MG TAB.RAPDIS ONE (18:14)
[2017-01-22] MEDS ORDERED: MORPHINE SULFATE 4 MG/ML DISP.SYRIN. IM ONE (18:30)
[2017-01-22] MEDS ORDERED: ONDANSETRON ODT 4 MG TAB.RAPDIS PO ONE (18:30)
[2017-01-22] MEDS ORDERED: ONDA4TAB7 PO (18:59)
[2017-01-22] MEDS ORDERED: MORP15TA PO (18:59)
[2017-01-22 19:07] VITALS: BP 155/70
== END 2017-01-22 19:08 | disposition home or self-care (01) ==
LOC: ER 16:11
DX: S39.92XA Unspecified injury of lower back, initial encounter (principal); S09.90XA Unspecified injury of head, initial encounter; S19.9XXA Unspecified injury of neck, initial encounter; G89.29 Other chronic pain; Z88.8 Allergy status to other drugs, medicaments and biological substances; Z88.6 Allergy status to analgesic agent; Z91.041 Radiographic dye allergy status; E11.40 Type 2 diabetes mellitus with diabetic neuropathy, unspecified; Z79.01 Long term (current) use of anticoagulants; Z86.73 Personal history of transient ischemic attack (TIA), and cerebral infarction without residual deficits; F17.210 Nicotine dependence, cigarettes, uncomplicated; W01.0XXA Fall on same level from slipping, tripping and stumbling without subsequent striking against object, initial encounter; Y93.89 Activity, other specified; Y99.8 Other external cause status; Y92.89 Other specified places as the place of occurrence of the external cause
CPT/HCPCS: 36415; 70450; 72125; 72131; 80053; 85027; 85610; 85730; 96372; 99285; J2270; Q0162

== ENCOUNTER 2017-02-09 19:15 | Inpatient (IN) | payer MEDICARE ==
[~2017-02-09] VITALS: Ht 175.3 cm; Wt 103.0 kg
[~2017-02-09 19:15] MED LIST changes: +ONDA4TAB7 PO
--- NOTE | 2017-02-09 20:24 | PHYS DOC ---
Past History Past Medical History: CVA, Diabetes, Hypertension, AL, Seizure, TIA, Other Past Surgical History: Appendectomy, Cholecystectomy, Other Smoking: Cigarettes, Quit Greater Than 1 Year Alcohol Use: None Drug Use: None Adult General Chief Complaint Chief Complaint: HEADACHE HPI HPI Patient is a 56 year old M who presents with the fear that he took too many pain medications at home for his headache and inadvertently overdosed himself. Patient told the nurse in triage that he took morphine and OxyContin for his headache and now he believes he is overdosed himself and is concerned. Patient states the headache has been there for couple days and has chronic pain which is why he has the high dose pain medication. Patient states the headache is constant and nothing makes it worse or better. After talking with the patient for period of time I get the sense the patient is depressed. When asked the patient directly he admits to having depression from his chronic pain and would like help. I have concerns that the patient is a harm to himself and the medication he took today was an attempt to harm himself. Since triage he has changes story multiple times to exactly what medication he took and how much. Pertinent exam findings: Patient is somnolent but arousable with verbal stimuli Heart is regular rate and rhythm without any murmurs Lungs are clear to auscultation bilaterally without crackles wheeze or rales ED course: Patient was seen and examined, CT scan of the head without contrast was ordered , CBC, CMP, urine drug screen, EtOH level, psych evaluation was ordered because I believe the patient's harm himself 2044: Juan Manuel-psych was brought in the room for the initial assessment 2136: Discussed CC/HP/PMH with Tele-psych doctor and recommends admit 2300: Patient attempted to leave stating that he no longer wanted the emergency room an involuntary hold secondary to the patient's statements of severe depression and the possibility of overdosing purposefully and having multiple guns at home 2310: Patient was placed in 4. restraints to protect himself and the staff 0041: Patient is resting comfortably and is then removed out of restraints after receiving 20 monos of Geodon IM, awaiting psych placement 0200: [facility] will send a screener down around 9 AM this morning to evaluate the patient [] Pertinent results: CT scan of the head without contrast is an NAD Lab works unremarkable MDM: After reviewing the chart, CC/HPI/PMH, physical exam, [lab results], I do not believe the patient has emergent medical condition warranting further workup and /or admission at this time. I believe patient is medically clear to be transferred to a psychiatric facility for further psychiatric evaluation and care. Review of Systems Review of Systems GEN: Depression HEENT: Denies blurred vision, sore throat CV: Denies chest pain RESP: Denies shortness of air, cough GI: Denies n/v/d NEURO: Headache MSK: Denies weakness, joint pain/swelling Allergies Allergies Allergies Coded Allergies Type Severity Reaction Last Updated Verified cyclobenzaprine Allergy Intermediate 02/28/15 No naproxen Allergy Intermediate 02/28/15 No prednisone Allergy Intermediate PSYCHOSIS 02/28/15 No I S O L A T I O N *CONTACT* Allergy Unknown 10/26/16 Yes Physical Exam Physical Exam GEN.: Somnolent but arousable. Alert and oriented. HEENT: Head is normocephalic, atraumatic NECK: Supple. LUNGS: CTAB. HEART: RRR, S1, S2 present. Peripheral pulses intact ABDOMEN: Soft, nontender. Positive bowel sounds. EXTREMITIES: Without any cyanosis. NEUROLOGIC: Normal speech, normal tone PSYCHIATRIC: Depressed, has changes story multiple times in the exactly how much medication he took prior to arrival, patient is a harm to himself SKIN: No ulcerations EKG EKG [] Radiology/Procedures Radiology/Procedures CT scan of the head without contrast NAD [] Course & Med Decision Making Course & Med Decision Making Pertinent Labs and Imaging studies reviewed. (See chart for details) [] Dragon Disclaimer Dragon Disclaimer This chart was dictated in whole or in part using Voice Recognition software in a busy, high-work load, and often noisy Emergency Department environment. It may contain unintended and wholly unrecognized errors or omissions. Departure Departure: Impression: Primary Impression: Self-harming behavior Additional Impressions: Overdose Depression Aggression Disposition: XFER OTHER Condition: STABLE Referrals: CORTEZ BURCIAGA (PCP) Problem Qualifiers Additional Impressions: Overdose Encounter type: initial encounter Injury intent: undetermined intent Qualified Codes: T50.904A - Poisoning by unspecified drugs, medicaments and biological substances, undetermined, initial encounter Depression Depression Type: major depressive disorder Major depression recurrence: single episode Active/Remission status: currently active Major depression episode severity: severe Psychotic features: with psychotic features Qualified Codes: F32.3 - Major depressive disorder, single episode, severe with psychotic features CIRO GRIFFITHS DO Feb 09, 2017 20:24
[2017-02-09 20:29] LABS: BASO # 0.1 x10^3/uL (0.0-0.2); BASO % 1 % (0-3); EOS # 0.2 x10^3/uL (0.0-0.7); EOS % 2 % (0-3); HEMOGLOBIN 12.3 g/dL (13.0-17.5); LYMPH % 23 % (24-48); MEAN CORPUSCULAR HEMOGLOBIN 29 pg (25-35); MEAN CORPUSCULAR HGB CONC 32 g/dL (31-37); MEAN CORPUSCULAR VOLUME 89 fL (79-100); MONO # 0.6 x10^3/uL (0.0-1.1); MONO % 7 % (0-9); NEUT # 5.9 x10^3uL (1.8-7.7); NEUT % 67 % (31-73); PLATELET COUNT 242 x10^3/uL (140-400); RED BLOOD COUNT 4.28 x10^6/uL (4.30-5.70); RED CELL DISTRIBUTION WIDTH 15.1 % (11.5-14.5); WHITE BLOOD COUNT 8.8 x10^3/uL (4.0-11.0)
[2017-02-09 20:33] LABS: CALCIUM 8.5 mg/dL (8.5-10.1); CREATININE 0.9 mg/dL (0.7-1.3); GFR 86.7; POTASSIUM 3.9 mmol/L (3.5-5.1)
--- NOTE | 2017-02-09 20:41 | RAD ---
CT HEAD WO CONTRAST Clinical indications: Severe headache x 3 weeks, drowsiness, over mediacted on coumadin, sleeping pills. COMPARISON: January 22, 2017. Technique: Noncontrast axial cross sectional scanning of the head was performed. PQRS compliance Statement One or more of the following individualized dose reduction techniques were utilized for this study: 1. Automated exposure control 2. Adjustment of the mA and/or kV according to patient size 3. Use of iterative reconstruction technique Findings: No acute intracranial hemorrhage or midline shift or mass-effect or hydrocephalus or extra-axial fluid collection is seen. Again seen is an old cortical infarct and white matter infarct of the right cerebral hemisphere with encephalomalacia. This is unchanged. No new focal hypodense area or sulci effacement is seen to indicate an acute infarct or edema radiographically. No skull fracture or pneumocephalus is seen. No opacification of the mastoid sinuses or the paranasal sinuses is seen. The maxillary sinuses are not completely seen in this study. Impression: No acute intracranial abnormality is seen. Electronically signed by: Miguelangel Garcia MD (02/09/2017 8:38 PM)
[2017-02-09] MEDS ORDERED: HALOPERIDOL LACT 5 MG/ML VIAL. IVP ONE (22:00)
[2017-02-09] MEDS ORDERED: ZIPRASIDONE IM 20 MG VIAL. IM ONE (23:15)
[2017-02-10] MEDS ORDERED: MORPHINE IR 15 MG TABLET PO ONE (10:00)
[2017-02-10] MEDS ORDERED: LORazepam 1 MG TABLET ONE (11:23)
[2017-02-10] MEDS ORDERED: ALPRAZolam 0.25 MG TABLET ONE (11:26)
[2017-02-10] MEDS ORDERED: LORazepam 1 MG TABLET PO ONE (11:30)
[2017-02-10] MEDS ORDERED: ALPRAZolam 0.25 MG TABLET PO ONE (11:45)
[2017-02-10] MEDS ORDERED: MORPHINE ER 60 MG TABLET.ER PO ONE ×2 (13:30→23:00)
[2017-02-10] MEDS ORDERED: GABAPENTIN 100 MG CAPSULE. PO ONE (16:15)
[2017-02-10] MEDS ORDERED: PHENYTOIN SODIUM EXTENDED 100 MG CAPSULE PO ONE (16:15)
[2017-02-10] MEDS ORDERED: LISINOPRIL 5 MG TABLET. PO ONE (16:15)
[2017-02-10] MEDS ORDERED: levETIRAcetam 500 MG TABLET PO ONE (16:15)
[2017-02-10] MEDS ORDERED: hydrALAZINE 10 MG TABLET PO ONE ×2 (16:15→23:00)
[2017-02-10 17:15] VITALS: BP 209/83
[2017-02-10] MEDS ORDERED: PREGABALIN 150 MG CAPSULE PO ONE (17:30)
[2017-02-10] MEDS ORDERED: hydrALAZINE 20 MG/ML VIAL. IV PRN ×2 (17:45→19:30)
--- NOTE | 2017-02-10 18:00 | NUR ---
The patient, STACEY LOGAN, 56 y/o, M admitted by MARCO A KELLEY MD, was given written information regarding hospital policies, unit procedures and contact persons. Patient complaining of severe headache and tearful. Dr. Kelley was notified of patient's high blood pressure and stroke like symptoms. Head CT ordered. Consult to Dr. Benitez regarding patient's psych issues. IV not flushing easily so multiple nurses attempted to obtain second IV. Patient stated he felt like this when he had a stroke in 2007. Dr. Wilson came to patient's bedside and evaluated patient. Report given to night nurse while day shift RN completed admission paperwork. Patient is on Q 4 hour neuro checks and 1:1 observation. Valuables were checked and wallet & pocketknife locked in the safe. Other belongings left at bedside with patient.
--- NOTE | 2017-02-10 18:31 | RAD ---
CT HEAD PQRS STATEMENT: One or more of the following in the visualized dose reduction techniques were utilized for this study: 1. Automatic exposure control, 2. Adjustment of the mA and/or kV according to patient size, 3. Use of iterative reconstruction technique INDICATION: CT Head w/o, left side weakness with headache x today, hx of strokes, this is not a stroke protocol per ACCESS SERVICES ASSISTANT COMPARISON: CT head from one day prior TECHNIQUE: 5 mm contiguous axial images were obtained from the skull base to the vertex in both bone and soft tissue algorithm. FINDINGS: Again noted is encephalomalacia from an old large right MCA distribution infarct. No evidence of intracranial hemorrhage. No extra-axial fluid collections. No mass effect or midline shift. Ventricular size is appropriate. Basal cisterns are patent. No fractures identified.Galindo-white differentiation is preserved.Globes and orbits are within normal limits. Paranasal sinuses and mastoid air cells are clear. IMPRESSION: No acute intracranial abnormality. Old right MCA distribution infarct. Electronically signed by: Ashwin Baltazar MD (02/10/2017 6:28 PM)
[2017-02-10] MEDS: fentaNYL PF 100 MCG/2 ML VIAL IV PRN ×2 (18:58→21:11)
[2017-02-10 19:00] VITALS: BP 214/98
[2017-02-10] MEDS ORDERED: levETIRAcetam 500 MG/5 ML VIAL IV ONE ×2 (19:22→20:59)
[2017-02-10] MEDS ORDERED: IV NORMAL SALINE 100ML 100 ML ONE ×2 (19:26→21:00)
[2017-02-10] MEDS ORDERED: LORazepam 2 MG/ML VIAL IV PRN (19:30)
[2017-02-10 20:00] VITALS: BP 192/113
[2017-02-10] MEDS ORDERED: IV NORMAL SALINE 1,000ML 1,000 ML ONE (20:28)
[2017-02-10] MEDS: IV DEXTROSE 5% - 0.9 % NACL 1,000 ML IV SCH (20:45)
[2017-02-10] MEDS ORDERED: IV NORMAL SALINE 250ML 250 ML ONE ×2 (20:59→22:23)
[2017-02-10 21:00] VITALS: BP 167/80
[2017-02-10] MEDS ORDERED: ATORVASTATIN CALCIUM 20 MG TABLET PO SCH (21:00)
[2017-02-10] MEDS: TEMAZEPAM 30 MG CAPSULE PO SCH (21:53)
[2017-02-10] MEDS: ALPRAZolam 0.5 MG TABLET PO PRN (21:53)
[2017-02-10] MEDS: PREGABALIN 150 MG CAPSULE PO SCH (21:54)
[2017-02-10] MEDS: GABAPENTIN 300 MG CAPSULE. PO SCH (21:54)
[2017-02-10 22:00] VITALS: BP 143/57
[2017-02-10] MEDS ORDERED: FOSPHENYTOIN 100 MG/2 ML VIAL IV SCH (22:00)
[2017-02-10] MEDS: AMITRIPTYLINE HCL 25 MG TABLET PO SCH (22:46)
[2017-02-10] MEDS: PHENYTOIN SODIUM EXTENDED 100 MG CAPSULE PO SCH (22:47)
[2017-02-10 23:00] VITALS: BP 168/76
[2017-02-11] VITALS (12 sets, daily range): BP systolic 91–168; BP diastolic 51–79
--- NOTE | 2017-02-11 00:13 | NUR ---
Nursing Note At start of shift, patient noted to be confused, and restless. Oriented to person only. At the following times: 1910, 1914 for 30seconds 191 for 50 seconds 192 for 30 seconds 193 for 48 seconds -- Patient given Ativan IV and IM see eMAR 2011 for 20 seconds 2023 for 35 seconds Patient began convulsing rhythmically, gagging, became tachypneic, cold and clammy, and oxygen sat dropped to low 80's on room air. During these episodes patient was NOT responsive to sternal rub, pressure on nail beds, limbs rigid during episode and flaccid post 'episode'. Patient confused after each episode and slow to respond. Bedrails up x4- padded (seizure precautions in place) Multiple attempts by multiple RNs to start IVs unsuccessful- patient unresponsive during IV attempts. Previous left hand IV repositioned and retaped, is working Blood glucose was WNL at 90. Patient BP during these episodes were 200/100's, patient given IV hydralazine to no effect, started on a cardene gtt which was quickly maxed out at 15mg/hr. Patient given an extra dose of keppra IV, dose for AM increased per MD. Once patient responsive, crying out that his head hurts- patient given IV fentanyl (See eMAR) Patient unable to pee in urinal- stood up with assistance x2- patient's left side weak. Bladder scan revealed >999mL- 16F barton placed with clear yellow UO. Patient more calm, now A/Ox4 , appreciative of care. Patient requesting water, bedside swallow assessment completed- patient given HS PO medications (see eMAR) RN told patient to remain NPO until midnight incase another seizure 'episode' happens for airway protection. Patient became agitated. RN attempted education and redirection. Patient hungry, ate dinner tray, ate ice cream and became nauseated... Patient very talkative with 1:1 at bedside, requesting different types of medication such as more pain meds, med for diarrhea, and nausea medication. RN just gave PO pain med, and HS medications Patient has not had a BM RN discussed POC with patient, redirected, asked patient to relax decreased stimulation in patient room Patient blood pressure is responding to PO and IV cardene now 139/63; cardene titrated down. HR 101, Oxygen sat 99% on RA, resp 16, Resting. 1:1 at bedside Will continue to closely monitor Hernan CHE RN Addendum: 02/11/17 at 0320 by MONA CHE RN Sky gtt off at 0315 Patient manipulative and attention seeking. Patient induced gagging/spitting, requesting zofran- given see eMAR Patient texting on phone while talking to 1:1 Requesting IV Morphine RN asked patient to rest/relax- patient soon fell asleep. Had been given PO pain med previously. Hernan CHE RN Addendum: 02/11/17 at 0537 by MONA CHE RN Patient slightly sedated, slow speech, HR 62 bp90/60 - awakens and asks for xanax- Patient redirected, discussed vital signs/current mental status and POC. Patient angry but not agitated, "I hope I don't throw up now" Patient requesting fresh water from KYLE hanna gave patient small cup of ice chips d/t 'nausea/vomiting'- will advance diet as tolerated. Patient unhappy and becoming argumentative... 1:1 at bedside, will continue to monitor Hernan CHE RN
[2017-02-11] MEDS ORDERED: IBUPROFEN 800 MG TABLET. PO PRN (00:45)
[2017-02-11] MEDS ORDERED: ONDANSETRON PF 4 MG/2 ML VIAL. IV PRN (00:45)
--- NOTE | 2017-02-11 06:32 | ACF ---
Admission Criteria Forms MENTAL STATUS CHANGE Clinical Indications for Inpatient Care (Place 'X' for any and all applicable criteria): Ongoing inpatient care may be needed for 1 or more of the following(1)(2)(3)(5)( 6): [ ]I. Suspected serious etiology (eg, medical disorder, TEAM TRUCK DRIVER event) of altered mental status [X]II. Danger to self or others not manageable at lower level of care [ ]III. Grave disability (eg, inability to perform self care necessary at lower level of care) [ ]IV. Agitation or inappropriate behavior interfering with care for primary condition (eg, attempting to discontinue lines or drains prematurely, unable to cooperate with respiratory care) [ ]V. Delirium [A] [D][E] as described by 1 or more of the following(26): [ ]a) Delirium due to alcohol or sedative [F] withdrawal [ ]b) Delirium of uncertain etiology that has not responded to appropriate empiric treatment [ ]c) Delirium that prevents performance of a life-sustaining function (eg, feeding or hydrating oneself) [ ]. General contraindications and/or Inappropriate clinical situations for Observational Care in patients with Mental Status Change, when ANY ONE of the following is required: [ ]a) Prediction of prolongation of LOS based on ANY ONE of the following may be considered as a contraindication for observational care 2, 3, 4, 5, 6, 7, 8, 9, 10, 11 [ ]i) Age > 65 yrs. [ ]ii) Patient arriving by ambulance [ ]iii) Patient with high acuity [ ]iv) Patient requiring vital sign monitoring [ ]v) Patient on IV medication [ ]b) Systolic blood pressures greater than or equal to 180mmHg 3, 12 [ ]c) Patient with altered mental status including delirium and other alteration of consciousness, (3) [ ]d) Patient whose discharge disposition will be to a shelter home or rehabilitation home should not be managed in Emergency Department Observation Unit. CMS rule requires 3 days hospital stay before such placement.3,13 [ ]e) Patient with failure to thrive due to broad array of etiologies 3,16,17 [ ]f) Inability to ambulate 3,14 Extended stay beyond goal length of stay for the primary condition may be needed until ALL of the following are present(3)(5): [ ]a) Underlying medical etiology of mental status change is absent, or has been established and adequately treated [ ]b) Danger to self or others is absent or manageable at lower level of care. [ ]c) Behavior crisis management, including physical or chemical restraints, is not required or available at lower level of car [ ]d) Substance or alcohol withdrawal is absent or manageable at lower level of care. [ ]e) Behavioral symptoms (eg, agitation, somnolence, inappropriate behavior) are absent, or are manageable at lower level of care. The original [facility] [email or web address] content created by [facility] [employer] has been revised. The portions of the content which have been revised are identified through the use of italic text or in bold, and [facility] has neither reviewed nor approved the modified material. All other unmodified content is copyright [facility] [employer]. Please see references footnoted in the original [facility] [employer] edition 2016 Admission Criteria Met?: Yes ARIE BLANCO Feb 11, 2017 06:32
[2017-02-11] MEDS: ALPRAZolam 0.5 MG TABLET PO PRN ×3 (06:39→18:15)
--- NOTE | 2017-02-11 08:07 | CONS ---
DATE OF CONSULTATION: 02/10/2017 NEURO CONSULT REFERRING PHYSICIAN: Dr. Kelley. REASON FOR CONSULTATION: Severe headaches. HISTORY OF PRESENT ILLNESS: This is a 56-year-old right-handed male who was admitted through Emergency Room after he presented with 2-week history of constant frontal and occipital headaches. The patient stated his headache has been 10 on 10 on the pain scale. He sometimes nauseated. He denies visual disturbances, vomiting, chest pain, shortness of breath or palpitation, dysarthria, dysphagia, or vertigo. The patient stated he took unknown dose of narcotics including morphine and oxycodone; therefore, he concerned about the doses he has been taking them in the last 2 weeks. The patient is known to me from several admissions to this institutions complaining of chronic lower back pain and basically chronic pain syndrome, and fibromyalgia. He has been asking for analgesic and narcotics for a while. He has had a long history of seizure disorder and peripheral neuropathy. Initial nonenhanced head CT scan performed on 02/09/2017 revealed no evidence of acute intracranial process, but showed evidence of large right MCA infarct. A head CT scan was repeated this morning and revealed no change from previous study. PAST MEDICAL HISTORY: Quite significant for left-sided weakness secondary to old right MCA infarct, history of coronary artery disease, hypertension, hyperlipidemia, deep venous thrombosis, obesity, seizure disorder, fibromyalgia, arthritis, degenerative disk disease in the lumbar spine, hypothyroidism, and hyperlipidemia. PAST SURGICAL HISTORY: Significant for left total knee replacement, colon resection, and cervical spine fusion. SOCIAL HISTORY: The patient is . He denies smoking, alcohol drinking, or illicit drug use. FAMILY HISTORY: His grandparents had diabetes mellitus. The father had stroke. Mother with history of Alzheimer disease. CURRENT HOME MEDICATIONS: Gabapentin 300 mg t.i.d., Cymbalta 60 mg p.o. daily, Lipitor 40 mg p.o. daily, Keppra, Lyrica 150 mg once daily p.r.n. phenytoin 300 mg at bedtime, lisinopril 10 mg daily, morphine 60 mg daily, lorazepam 1 mg daily p.r.n. for anxiety, alprazolam 0.25 mg p.r.n. for anxiety, Geodon 20 mg p.o. daily, haloperidol 5 mg IV for agitation. ALLERGIES: CYCLOBENZAPRINE, NAPROXEN, and PREDNISONE. REVIEW OF SYSTEMS: A 10-point review of system was performed and consistent with constant headaches, chronic low back pain, numbness and paresthesia of the lower extremities, otherwise as mentioned above in history of present illness. PHYSICAL EXAMINATION: GENERAL: Well-developed, well-nourished white male, not in acute distress. He weighs 158 pounds. VITAL SIGNS: Blood pressure is 200/101, respiratory rate 18, pulse is 83 and regular, not in acute distress. HEENT: Normocephalic, atraumatic, otherwise unremarkable. NECK: Supple. Negative for carotid bruit, lymphadenopathy, or thyromegaly. LUNGS: Clear to A and P. CARDIOVASCULAR: Regular rate and rhythm, normal S1, S2. There is no S3, S4 or murmur. ABDOMEN: Soft. Bowel sounds positive. EXTREMITIES: Negative for cyanosis, clubbing, or pitting edema. NEUROLOGIC: 1. MENTAL STATUS: The patient is alert and oriented x 3. Speech is fluent. There is no language dysfunction. Memory, judgment, and abstract thinking are normal. The patient denies hallucination or delusion. 2. CRANIAL NERVES: Visual peters are full. The pupils are reactive to light and accommodation. The extraocular movements are intact. There is no nystagmus. There is no facial motor or sensory deficit. Hearing is intact bilaterally. The palate is elevated symmetrically. Sternocleidomastoid muscles are powerful bilaterally. The patient shrugs his shoulders symmetrically, protrudes his tongue in the midline without fasciculation or atrophy. 3. MOTOR EXAMINATION: No focal muscle bulk was seen. The tone is normal. The strength is 4/5 in the left upper and lower extremities. The strength also was 5/5 throughout. Sensory examination revealed normal. Sensory examination revealed diminished pinprick, light touch senses, and patchy distributions over the left upper and lower extremities compared to those on the left side. Deep tendon reflexes were symmetric and hypoactive with absent Achilles responses. Gait not tested. LABORATORY DATA: CBC revealed white blood cells of 8.8 thousand, hemoglobin 12.3, hematocrit 38, platelet count 242,000. Chemistry revealed sodium of 144, potassium 3.9, chloride 107, CO2 is 30. BUN 7, creatinine 0.9, glucose 92, calcium 8.5. INR is 2.5. Urine drug screen is negative. IMPRESSION: 1. Severe constant headaches etiology uncertain, rule out medications side effects withdrawal-rebound headaches. 2. Multiple medical problems include hyperlipidemia, hypertension, coronary artery disease, chronic low back pain, fibromyalgia, seizure disorders, hyperlipidemia, anxiety, and depressions. RECOMMENDATION: Continue with current management with fentanyl and keep systolic blood pressure below 140/90 mmHg. M Josue HERNANDEZ MD DR: ALVARO/yas JOB#: [id number] / [id number]
[2017-02-11] MEDS: fentaNYL PF 100 MCG/2 ML VIAL IV PRN ×2 (08:33→11:16)
[2017-02-11] MEDS: FOLIC ACID 1 MG TABLET PO SCH (08:41)
[2017-02-11] MEDS: GABAPENTIN 300 MG CAPSULE. PO SCH ×2 (08:41→20:16)
[2017-02-11] MEDS: DULoxetine HCL 60 MG CAPSULE.DR PO SCH (08:41)
[2017-02-11] MEDS: PHENYTOIN SODIUM EXTENDED 100 MG CAPSULE PO SCH ×2 (08:41→20:15)
[2017-02-11] MEDS: PREGABALIN 150 MG CAPSULE PO SCH ×3 (08:41→20:15)
[2017-02-11] MEDS ORDERED: MORPHINE ER 60 MG TABLET.ER PO PRN (09:00)
[2017-02-11] MEDS ORDERED: DULoxetine HCL 60 MG CAPSULE.DR PO SCH (09:00)
[2017-02-11] MEDS ORDERED: MORPHINE ER 60 MG TABLET.ER PO SCH (09:00)
[2017-02-11] MEDS: IV DEXTROSE 5% - 0.9 % NACL 1,000 ML IV SCH (09:15)
[2017-02-11 10:02] LABS: CALCIUM 7.8 mg/dL (8.5-10.1); CREATININE 0.5 mg/dL (0.7-1.3); GFR 170.8; POTASSIUM 4.2 mmol/L (3.5-5.1)
[2017-02-11] MEDS: LISINOPRIL 10 MG TABLET PO SCH (10:02)
[2017-02-11] MEDS: hydrALAZINE 10 MG TABLET PO SCH ×3 (11:15→20:15)
[2017-02-11] MEDS ORDERED: ALPRAZolam 0.5 MG TABLET PO PRN (12:45)
[2017-02-11] MEDS ORDERED: NON FORMULARY ITEM (Alprazolam 1 MG) PO PRN (12:45)
[2017-02-11] MEDS ORDERED: METOCLOPRAMIDE 10 MG TABLET PO PRN (12:45)
[2017-02-11] MEDS ORDERED: ACETAMINOPHEN/CODEINE 300/30MG TABLET PO PRN (12:45)
[2017-02-11] MEDS ORDERED: ONDANSETRON ODT 4 MG TAB.RAPDIS PO PRN (13:15)
[2017-02-11] MEDS: MORPHINE IR 15 MG TABLET PO PRN (14:00)
--- NOTE | 2017-02-11 15:16 | HP ---
ADMIT DATE: 02/10/2017 HISTORY OF PRESENT ILLNESS: The patient is a 56-year-old male patient who originally came to the Emergency Room complaining that he might have inadvertently overdosed himself. He was apparently evaluated by Dr. Nicho Bejarano who apparently was concerned that the patient might have taken an overdose to harm himself and since he was triage they changed his sodium multiple times and in fact the telepsych was consulted and apparently there was a recommendation for him to be admitted for suicidal ideation. Shortly thereafter, the patient attempted to leave stating that he is no longer wanted the Emergency Room. In the Emergency Room involuntary hold secondary to the patient's statement of severe depression and possibility of overdosing purposely and having multiple guns at home. The patient was placed in for restraints to protect himself and the staff. He was given Geodon 20 mg intramuscular and was there awaiting psych placement and the plan was for the [facility] to send to screen him down around 9:00 a.m. next day. The patient started complaining that he has weakness, tingling, and numbness in his left side of the face. He had CT scan of the head without contrast, which was unremarkable and of apparently he is known to have right middle cerebral artery territory infarct with left side hemiplegia before and the patient was admitted to the ICU and has had another CT scan of the head, which again showed no intracranial abnormality. He has the same old right mid cerebral artery distribution infarct. The patient was claiming that he is having seizures and shaking; however, was able to toe and I was not really complains that he has any seizures. He has not bitten his tongue. He was conscious and able to talk during his seizures. We did consult Dr. Wilson who saw him and he does not feel that the patient has a new infarct. It was because of his complaint that he has had news stroke and concerned about his swallowing and we switched his Keppra and phenytoin to be given IV. He was also retaining urine and has had an indwelling Mcguire catheter. 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 PAST SURGICAL HISTORY: Significant for left total knee arthroplasty, colon resection, and cervical spine fusion. FAMILY HISTORY: His grandparents had diabetes mellitus. His father had stroke. Mother has a history of Alzheimer disease. SOCIAL HISTORY: He is and lives with his . He does not smoke. Drinks alcohol or use recreational drugs. ALLERGIES: HE IS ALLERGIC TO CYCLOBENZAPRINE, NAPROXEN, AND PREDNISONE. MEDICATIONS: He is currently on the following medications, acetaminophen with codeine 1 tablet every 6 hours, alprazolam 0.5 mg every 12 hours, alprazolam 1 mg p.o. every 6 hours, amitriptyline 25 mg at bedtime, atorvastatin calcium 40 mg at bedtime, Symbicort 80/4.5 two puffs twice a day, duloxetine 60 mg capsule once a day, folic acid 1 mg once a day, gabapentin 300 mg twice a day, hydralazine 10 mg 3 times a day, levetiracetam 500 mg twice a day, lisinopril 10 mg once a day, metoclopramide 10 mg every 8 hours, morphine sulfate 15 mg every 8 hours as needed, morphine sulfate extended release 60 mg twice a day, omeprazole 20 mg once a day, ondansetron 4 mg q.6 hourly, oxycodone 10 mg every 6 hours, phenytoin sodium extended release 300 mg twice a day, pregabalin 150 mg 3 times a day, temazepam 30 mg at bedtime, and warfarin 5 mg daily. REVIEW OF SYSTEMS: As per history of present illness. PHYSICAL EXAMINATION: GENERAL: On arrival in the Emergency Room, the patient was somewhat somnolent, but arousable with verbal stimulation. There was no pallor, jaundice, or cyanosis. No lymphadenopathy. No thyromegaly. No jugular venous distention. No limb edema. VITAL SIGNS: His heart rate was 59, blood pressure was 171/81, temperature was 98.6, respiratory rate was 16, and oxygen saturation was 98% on room air. HEENT: Showed normocephalic and atraumatic. NECK: Supple. HEART: Showed normal first and second heart sounds with no gallop, rub, or murmur. CHEST: Clear to auscultation. No crepitation or rhonchi. ABDOMEN: Distended, soft, and nontender. No guarding or rigidity. No organomegaly. Hernial orifices are intact. Bowel sounds normal. NEUROLOGIC: He was somnolent, but arousable. He opens eyes, tracks, and responds appropriately. He had left-sided hemiplegia. LABORATORY DATA: While in the Emergency Room, he has lab work done, which showed a white cell count of 8800, hemoglobin 12.3, hematocrit 38, MCV 89, and platelet count 242,000. His chemistry showed a serum sodium 144, potassium 3.9, chloride 107, bicarbonate 30, anion gap of 7, BUN 7, creatinine 0.9, and estimated GFR was 56 mL per minute. His glucose was 92 and calcium was 8.5. His prothrombin time was 26.9 and INR of 2.6. His toxic screen showed blood alcohol level to be less than 10. ASSESSMENT AND PLAN: In summary, this is a 56-year-old male patient who has changed his story on a numerous times; initially came with headache and complained that he has severe headache and had inadvertently overdosed himself. Later on the ER physician thought he might have attempted suicide by overdosing and consulted psychiatrist who recommended admission for the [facility] screener to see him. He is known to have old right middle cerebral artery territory infarct and left side hemiplegia. In fact, we did two sets of CT scan of the head without contrast that showed no changes. The patient did not take any of his medication while in the Emergency Room. The patient became agitated and given Geodon as he was awaiting psych placement. Later when he arrived to the ICU, his blood pressure was extremely high and we have to start him on nicardipine drip. We did also switched his anti-seizure medication to be given IV and both Keppra and phenytoin. We have consulted Dr. Wilson. We will evaluate him and decide on further management accordingly. MARCO A GRIJALVA MD DR: DEMETRIA/yas JOB#: [id number] / [id number]
[2017-02-11] MEDS ORDERED: WARFARIN 5 MG TABLET. PO SCH (16:00)
[2017-02-11] MEDS: oxyCODONE IR 5 MG TABLET PO PRN (16:34)
[2017-02-11] MEDS: ALBUTEROL SULFATE 2.5 MG/3 ML NEBU. NEB SCH ×2 (16:55→20:23)
[2017-02-11] MEDS: TEMAZEPAM 30 MG CAPSULE PO SCH (20:16)
[2017-02-11] MEDS: levETIRAcetam 500 MG TABLET PO SCH (20:16)
[2017-02-11] MEDS: AMITRIPTYLINE HCL 25 MG TABLET PO SCH (20:17)
[2017-02-11] MEDS: BUDESONIDE 0.5 MG/2 ML NEBU NEB SCH (20:23)
[2017-02-11] MEDS: MORPHINE ER 60 MG TABLET.ER PO SCH (20:38)
[2017-02-11] MEDS ORDERED: ATORVASTATIN CALCIUM 20 MG TABLET PO SCH (21:00)
[2017-02-11] MEDS ORDERED: NON FORMULARY ITEM (Budesonide/Formoterol Fumarate (Symbicort 80-4.5 Mcg Inhaler) 2 PUFF) IH SCH (21:00)
--- NOTE | 2017-02-11 21:06 | PDOC ---
Exam Rocky Demential Exam: Rocky Note: Please also refer to the separate dictated note~for this date of service dictated separately.~Patient seen individually. Discussed the patient with Nursing staff reviewed the chart.~Reviewed interim history and current functioning. Reviewed vital signs,~Labs/ Radiology~and current medications noted below. Continue current treatment with the changes noted in the dictated addendum note Assessment: Vital Signs: Vital Signs Date Time Temp Pulse Resp B/P (MAP) Pulse Ox O2 Delivery O2 Flow Rate FiO2 02/11/17 20:38 20 Room Air 02/11/17 20:25 97 02/11/17 20:15 69 149/79 02/11/17 20:02 98.3 02/11/17 06:57 2.0 I&O Intake and Output 02/11/17 07:00 Intake Total 1450 ml Output Total 1850 ml Balance -400 ml Intake Oral 250 ml IV Total 1200 ml Output Urine Total 1850 ml Labs: Laboratory Tests Test 02/11/17 09:30 Sodium Level 139 mmol/L (136-145) Potassium Level 4.2 mmol/L (3.5-5.1) Chloride Level 105 mmol/L (98-107) Carbon Dioxide Level 24 mmol/L (21-32) Anion Gap 10 (6-14) Blood Urea Nitrogen 8 mg/dL (8-26) Creatinine 0.5 mg/dL (0.7-1.3) L Estimated GFR (Cockcroft-Gault) 170.8 Glucose Level 91 mg/dL (70-99) Calcium Level 7.8 mg/dL (8.5-10.1) L Current Medications: Meds: Current Medications Haloperidol Lactate (Haldol) 5 mg 1X ONCE IVP Last administered on 02/09/17 22 :00; Start 02/09/17 at 22:00; Stop 02/09/17 at 22:01; Status DC Ziprasidone (Geodon Im) 20 mg 1X ONCE IM Last administered on 02/09/17 23:00; Start 02/09/17 at 23:15; Stop 02/09/17 at 23:17; Status DC Morphine Sulfate (Morphine Ir) 15 mg 1X ONCE PO Last administered on 09:47; Start 02/10/17 at 10:00; Stop 02/10/17 at 10:01; Status DC Lorazepam (Ativan) 1 mg 1X ONCE PO ; Start 02/10/17 at 11:30; Stop 02/10/17 at 11:30; Status DC Alprazolam (Xanax) 1 mg 1X ONCE PO Last administered on 02/10/17 11:27; Start 02/10/17 at 11:45; Stop 02/10/17 at 11:46; Status DC Lorazepam (Ativan) 1 mg STK-MED ONCE .ROUTE ; Start 02/10/17 at 11:23; Stop 06/19 at 11:25; Status DC Alprazolam (Xanax) 0.25 mg STK-MED ONCE .ROUTE ; Start 02/10/17 at 11:26; Stop 02/10/17 at 11:27; Status DC Morphine Sulfate (Ms Contin) 60 mg 1X ONCE PO Last administered on 02/10/17 13:10; Start 02/10/17 at 13:30; Stop 02/10/17 at 13:31; Status DC Atorvastatin Calcium (Lipitor) 40 mg QHS PO Last administered on 02/10/17 21: 54; Start 02/10/17 at 21:00; Stop 02/11/17 at 13:08; Status DC Duloxetine HCl (Cymbalta) 60 mg DAILY PO Last administered on 02/11/17 08:41; Start 02/11/17 at 09:00 Gabapentin (Neurontin) 300 mg 1X ONCE PO ; Start 02/10/17 at 16:15; Stop at 16:16; Status DC Hydralazine HCl (Apresoline) 10 mg 1X ONCE PO Last administered on 02/10/17 16:23; Start 02/10/17 at 16:15; Stop 02/11/17 at 12:35; Status DC Levetiracetam (Keppra) 500 mg 1X ONCE PO Last administered on 02/10/17 16:27 ; Start 02/10/17 at 16:15; Stop 02/10/17 at 16:16; Status DC Lisinopril (Prinivil) 10 mg 1X ONCE PO Last administered on 02/10/17 16:28; Start 02/10/17 at 16:15; Stop 02/10/17 at 16:16; Status DC Phenytoin Sodium (Dilantin) 300 mg 1X ONCE PO Last administered on 02/10/17 16:26; Start 02/10/17 at 16:15; Stop 02/10/17 at 16:16; Status DC Pregabalin (Lyrica) 150 mg 1X ONCE PO ; Start 02/10/17 at 17:30; Stop 02/10/17 at 17:31; Status DC Hydralazine HCl (Apresoline) 10 mg PRN Q6HRS PRN IV ELEVATED BP, SEE COMMENTS Last administered on 02/10/17 18:59; Start 02/10/17 at 17:45; Stop 02/10/17 at 19:27; Status DC Fentanyl Citrate (Fentanyl 2ml Vial) 25 mcg PRN Q3HRS PRN IV PAIN Last administered on 02/11/17 11:16; Start 02/10/17 at 17:45; Stop 02/11/17 at 12:35 ; Status DC Levetiracetam 500 mg/Sodium Chloride 100 ml @ 400 mls/hr Q12HR IV Last administered on 02/10/17 19:30; Start 02/10/17 at 18:30; Stop 02/10/17 at 20:51 ; Status DC Levetiracetam (Keppra) 500 mg STK-MED ONCE IV Last administered on 02/10/17 19 :22; Start 02/10/17 at 19:22; Stop 02/11/17 at 12:35; Status DC Hydralazine HCl (Apresoline) 20 mg PRN Q4HRS PRN IV ELEVATED BP, SEE COMMENTS Last administered on 02/10/17 19:47; Start 02/10/17 at 19:30; Stop 02/11/17 at 12:35; Status DC Lorazepam (Ativan) 1 mg PRN Q2HR PRN IV seizures Last administered on 19:30; Start 02/10/17 at 19:30 Sodium Chloride 100 ml @ As Directed STK-MED ONCE .ROUTE Last administered on 02/10/17 19:30; Start 02/10/17 at 19:26; Stop 02/10/17 at 19:27; Status DC Sodium Chloride 1,000 ml @ As Directed STK-MED ONCE .ROUTE ; Start 02/10/17 at 20:28; Stop 02/10/17 at 20:29; Status DC Levetiracetam 1000 mg/Sodium Chloride 110 ml @ 400 mls/hr Q12HR IV ; Start 07/20 at 09:00; Stop 02/11/17 at 09:00; Status DC Nicardipine HCl 50 mg/Sodium Chloride 270 ml @ 0 mls/hr CONT PRN IV SEE I/O RECORD Last administered on 02/10/17 21:12; Start 02/10/17 at 20:45; Stop 02/11 at 12:35; Status DC Dextrose/Sodium Chloride 1,000 ml @ 75 mls/hr [id number] IV Last administered on 02/11/17 09:15; Start 02/10/17 at 20:45; Stop 02/11/17 at 12:35; Status DC Alprazolam (Xanax) 1 mg PRN Q6HRS PRN PO ANXIETY / AGITATION Last administered on 02/11/17 18:15; Start 02/10/17 at 20:45 Levetiracetam 500 mg/Sodium Chloride 100 ml @ 400 mls/hr 1X ONCE IV Last administered on 02/10/17 21:00; Start 02/10/17 at 21:00; Stop 02/10/17 at 21:14 ; Status DC Fosphenytoin Sodium (Cerebyx) 200 mg Q8HRS IV ; Start 02/10/17 at 22:00; Stop at 22:16; Status DC Nicardipine HCl (Cardene) 25 mg STK-MED ONCE IV Last administered on 02/10/17 21:12; Start 02/10/17 at 20:59; Stop 02/11/17 at 12:35; Status DC Sodium Chloride 250 ml @ As Directed STK-MED ONCE .ROUTE Last administered on 02/10/17 20:59; Start 02/10/17 at 20:59; Stop 02/10/17 at 21:00; Status DC Levetiracetam (Keppra) 500 mg STK-MED ONCE IV Last administered on 02/10/17 21 :11; Start 02/10/17 at 20:59; Stop 02/11/17 at 12:35; Status DC Sodium Chloride 100 ml @ As Directed STK-MED ONCE .ROUTE Last administered on 02/10/17 21:00; Start 02/10/17 at 21:00; Stop 02/10/17 at 21:01; Status DC Amitriptyline HCl (Elavil) 25 mg HS PO Last administered on 02/11/17 20:17; Start 02/10/17 at 22:00 Duloxetine HCl (Cymbalta) 60 mg DAILY PO ; Start 02/11/17 at 09:00; Stop at 09:00; Status DC Folic Acid (Folic Acid) 1 mg DAILY PO Last administered on 02/11/17 08:41; Start 02/11/17 at 09:00 Gabapentin (Neurontin) 300 mg BID PO Last administered on 02/11/17 20:16; Start 02/10/17 at 22:00 Pregabalin (Lyrica) 150 mg TID PO Last administered on 02/11/17 20:15; Start 02/10/17 at 22:00 Temazepam (Restoril) 30 mg HS PO Last administered on 02/11/17 20:16; Start at 22:00 Phenytoin Sodium (Dilantin) 300 mg BID PO Last administered on 02/11/17 20:15 ; Start 02/10/17 at 23:00 Nicardipine HCl (Cardene) 25 mg STK-MED ONCE IV ; Start 02/10/17 at 22:23; Stop 02/11/17 at 12:35; Status DC Sodium Chloride 250 ml @ As Directed STK-MED ONCE .ROUTE ; Start 02/10/17 at 22 :23; Stop 02/10/17 at 22:24; Status DC Hydralazine HCl (Apresoline) 10 mg TID PO Last administered on 02/11/17 20:15 ; Start 02/11/17 at 09:00 Lisinopril (Prinivil) 10 mg DAILY PO Last administered on 02/11/17 10:02; Start 02/11/17 at 09:00 Morphine Sulfate (Ms Contin) 60 mg BID PO ; Start 02/11/17 at 09:00; Stop at 09:00; Status DC Morphine Sulfate (Ms Contin) 60 mg 1X ONCE PO Last administered on 02/10/17 23:09; Start 02/10/17 at 23:00; Stop 02/10/17 at 23:04; Status DC Hydralazine HCl (Apresoline) 10 mg 1X ONCE PO Last administered on 02/10/17 23:10; Start 02/10/17 at 23:00; Stop 02/11/17 at 12:35; Status DC Ondansetron HCl (Zofran) 4 mg PRN Q6HRS PRN IV NAUSEA/VOMITING Last administered on 02/11/17 02:12; Start 02/11/17 at 00:45 Ibuprofen (Motrin) 800 mg PRN Q8HRS PRN PO INFLAMMATION Last administered on 08:54; Start 02/11/17 at 00:45 Morphine Sulfate (Ms Contin) 60 mg PRN BID PRN PO SEVERE PAIN; Start 02/11/17 at 09:00; Stop 02/11/17 at 09:00; Status DC Levetiracetam 1000 mg/Sodium Chloride 110 ml @ 400 mls/hr Q12HR IV Last administered on 02/11/17 08:40; Start 02/11/17 at 09:00; Stop 02/11/17 at 12:58 ; Status DC Acetaminophen/ Codeine Phosphate (Tylenol #3) 1 tab PRN Q6HRS PRN PO PAIN; Start 02/11/17 at 12:45 Alprazolam (Xanax) 0.5 mg PRN Q12HR PRN PO ANXIETY / AGITATION; Start 02/11/17 at 12:45 Levetiracetam (Keppra) 500 mg BID PO Last administered on 02/11/17 20:16; Start 02/11/17 at 21:00 Metoclopramide HCl (Reglan) 10 mg PRN Q8HRS PRN PO Crohns; Start 02/11/17 at 12 :45 Morphine Sulfate (Morphine Ir) 15 mg PRN Q8HRS PRN PO BREAKTHROUGH PAIN Last administered on 02/11/17 14:00; Start 02/11/17 at 12:45 Warfarin Sodium (Coumadin) 5 mg DAILY16 PO Last administered on 02/11/17 15:46 ; Start 02/11/17 at 16:00 Non-Formulary Medication 1 mg PRN Q6HRS PRN PO ANXIETY / AGITATION; Start 02/11 at 12:45; Status UNV Atorvastatin Calcium (Lipitor) 40 mg QHS PO Last administered on 02/11/17 20: 16; Start 02/11/17 at 21:00 Non-Formulary Medication 2 puff BID IH ; Start 02/11/17 at 21:00; Status UNV Pantoprazole Sodium (Protonix) 40 mg DAILY PO ; Start 02/12/17 at 09:00 Ondansetron HCl (Zofran Odt) 4 mg PRN Q6HRS PRN PO NAUSEA; Start 02/11/17 at 13 :15 Oxycodone HCl (Roxicodone) 10 mg PRN Q6HRS PRN PO PAIN Last administered on 16:34; Start 02/11/17 at 13:15 Warfarin Sodium (Coumadin Per Physician) 1 each PRN DAILY PRN MC SEE COMMENTS; Start 02/11/17 at 13:15 Albuterol Sulfate (Ventolin) 2.5 mg RTQID NEB Last administered on 02/11/17 20 :23; Start 02/11/17 at 16:00 Budesonide (Pulmicort) 0.5 mg RTBID NEB Last administered on 02/11/17 20:23; Start 02/11/17 at 20:00 Morphine Sulfate (Ms Contin) 60 mg BID PO Last administered on 02/11/17 20:38 ; Start 02/11/17 at 21:00 Active Scripts Active Zofran (Ondansetron Hcl) 4 Mg Tablet 1 Tab PO PRN Q6HRS PRN Tylenol With Codeine #3 Tablet (Acetaminophen With Codeine) 1 Each Tablet 1 Tab PO Q6HRS PRN Reported Oxycodone Hcl 10 Mg Tablet 10 Mg PO PRN Q6HRS PRN LAST DOSE GIVEN: DATE: TIME: NEXT DOSE DUE: DATE: TIME: Alprazolam 1 Mg Tablet 1 Mg PO PRN Q6HRS PRN LAST DOSE GIVEN: DATE: TIME: NEXT DOSE DUE: DATE: TIME: Symbicort 80-4.5 Mcg Inhaler (Budesonide/Formoterol Fumarate) 10.2 Gm Hfa.aer.ad 2 Puff IH BID LAST DOSE GIVEN: DATE: TIME: NEXT DOSE DUE: DATE: TIME: Alprazolam 0.5 Mg Tablet 0.5 Mg PO Q12HR PRN LAST DOSE GIVEN: DATE: TIME: NEXT DOSE DUE: DATE: TIME: Levetiracetam 250 Mg Tablet 500 Mg PO BID LAST DOSE GIVEN: DATE: TIME: NEXT DOSE DUE: DATE: TIME: Metoclopramide Hcl 10 Mg Tablet 10 Mg PO Q8HRS PRN LAST DOSE GIVEN: DATE: TIME: NEXT DOSE DUE: DATE: TIME: Hydralazine Hcl 10 Mg Tablet 10 Mg PO TID LAST DOSE GIVEN: DATE: TIME: NEXT DOSE DUE: DATE: TIME: Atorvastatin Calcium 40 Mg Tablet 40 Mg PO HS LAST DOSE GIVEN: DATE: TIME: NEXT DOSE DUE: DATE: TIME: Duloxetine Hcl 60 Mg Capsule.dr 60 Mg PO DAILY LAST DOSE GIVEN: DATE: TIME: NEXT DOSE DUE: DATE: TIME: Morphine Sulfate Er (Morphine Sulfate) 60 Mg Tablet.er 60 Mg PO BID LAST DOSE GIVEN: DATE: TIME: NEXT DOSE DUE: DATE: TIME: Morphine Sulfate 15 Mg Tablet 15 Mg PO Q8HRS PRN LAST DOSE GIVEN: DATE: TIME: NEXT DOSE DUE: DATE: TIME: Temazepam 30 Mg Capsule 30 Mg PO HS LAST DOSE GIVEN: DATE: TIME: NEXT DOSE DUE: DATE: TIME: Lisinopril 10 Mg Tablet 10 Mg PO DAILY last dose this morning next dose tomorrow Omeprazole 20 Mg Capsule.dr 20 Mg PO DAILY LAST DOSE GIVEN: DATE: TIME: NEXT DOSE DUE: DATE: TIME: Gabapentin 300 Mg Capsule 300 Mg PO BID LAST DOSE GIVEN: DATE: TIME: NEXT DOSE DUE: DATE: TIME: Lyrica (Pregabalin) 150 Mg Capsule 150 Mg PO TID LAST DOSE GIVEN: DATE: TIME: NEXT DOSE DUE: DATE: TIME: Amitriptyline Hcl 25 Mg Tablet 25 Mg PO HS LAST DOSE GIVEN: DATE: TIME: NEXT DOSE DUE: DATE: TIME: Folic Acid 1 Mg Tablet 1 Mg PO DAILY LAST DOSE GIVEN: DATE: TIME: NEXT DOSE DUE: DATE: TIME: Warfarin Sodium 5 Mg Tablet 5 Mg PO DAILY08 LAST DOSE GIVEN: DATE: TIME: NEXT DOSE DUE: DATE: TIME: Dilantin (Phenytoin Sodium Extended) 100 Mg Capsule 300 Mg PO BID LAST DOSE GIVEN: DATE: TIME: NEXT DOSE DUE: DATE: TIME: Diagnosis: Problems: (1) Aggression (2) Self-harming behavior AIDEN UQIROZ MD Feb 11, 2017 21:06
[2017-02-12] MEDS: oxyCODONE IR 5 MG TABLET PO PRN ×2 (02:14→10:54)
--- NOTE | 2017-02-12 02:48 | PN ---
DATE: 02/11/2017 SUBJECTIVE: The patient is sitting slightly propped up in bed, eating his lunch comfortably in no apparent distress. On further discussion, he stated that he normally is able to walk with a walker and also with cane and he is fairly independent, although he needs assistance with shower and also putting his clothes and he stated that he feels that he has another stroke. I explained to him that he has had 2 CT scans, which did not show any changes. He was seen by Dr. Wilson who felt that there is no change in his clinical status, but he thinks that he had another stroke and it is probably not safe for him to go home that he might need to be placed in a long-term facility. The patient changed his program completely, answered that he is willing to work with physical therapy and he will go home tomorrow. PHYSICAL EXAMINATION: GENERAL: When I saw him this afternoon, he looked well and was clearly in no apparent respiratory distress. There was no pallor, jaundice, cyanosis or thyromegaly. No jugular venous distention. No limb edema. VITAL SIGNS: His heart rate was 76, blood pressure was 153/65, temperature was 98, respiratory rate 16, and oxygen saturation was 93% on room air. HEAD, EYES, EARS, NOSE AND THROAT: Showed normocephalic, atraumatic. NECK: Supple. HEART: Showed normal first and second heart sounds with no gallop, rub or murmur. CHEST: Clear to auscultation. No crepitation or rhonchi. ABDOMEN: Distended, soft, and nontender. NEUROLOGIC: He is awake, alert, responding appropriately. Cranial nerves intact. He has a left-sided hemiparesis, there does not seem to be any change from previous admission when I saw him before. PLAN: My plan is to continue all his IV medications, to put him back on all his home medications. We discontinued the IV fluid, discontinued the Mcguire catheter. We will consult Physical and Occupational Therapy and evaluate him tomorrow and if he is back to his baseline, he can be discharged home with home health. MARCO A GRIJALVA MD DR: DEMETRIA/yas JOB#: [id number] / [id number]
[2017-02-12] MEDS: ALPRAZolam 0.5 MG TABLET PO PRN ×2 (05:11→10:54)
[2017-02-12] MEDS: ALBUTEROL SULFATE 2.5 MG/3 ML NEBU. NEB SCH ×2 (05:48→11:36)
[2017-02-12] MEDS: MORPHINE IR 15 MG TABLET PO PRN ×2 (05:57→14:51)
[2017-02-12 06:32] VITALS: BP 154/84
[2017-02-12] MEDS: MORPHINE ER 60 MG TABLET.ER PO SCH (08:22)
[2017-02-12] MEDS: PREGABALIN 150 MG CAPSULE PO SCH ×2 (08:22→14:51)
[2017-02-12] MEDS: GABAPENTIN 300 MG CAPSULE. PO SCH (08:22)
[2017-02-12] MEDS: hydrALAZINE 10 MG TABLET PO SCH ×2 (08:22→14:51)
[2017-02-12] MEDS: DULoxetine HCL 60 MG CAPSULE.DR PO SCH (08:22)
[2017-02-12] MEDS: PHENYTOIN SODIUM EXTENDED 100 MG CAPSULE PO SCH (08:22)
[2017-02-12] MEDS: FOLIC ACID 1 MG TABLET PO SCH (08:23)
[2017-02-12] MEDS: levETIRAcetam 500 MG TABLET PO SCH (08:23)
[2017-02-12] MEDS: LISINOPRIL 10 MG TABLET PO SCH (08:23)
--- NOTE | 2017-02-12 08:29 | PN ---
DATE: 02/11/2017 SUBJECTIVE: The patient said his headache has been better. He denies any nausea, vomiting, chest pain, shortness of breath, palpitation, dysarthria, or dysphagia. OBJECTIVE: GENERAL: A well-developed and well-nourished white man, in no acute distress. VITAL SIGNS: Blood pressure 160/53, respiratory rate 16, pulse 63 and temperature is 98.3, and oxygen saturation 96% on room air. HEENT: Normocephalic and atraumatic. Otherwise unremarkable. NECK: Supple. Negative for carotid bruits or lymphadenopathy. LUNGS: Clear to A and P. CARDIOVASCULAR: Regular rate and rhythm. Normal S1 and S2. No S3, S4, or murmur. ABDOMEN: Soft, bowel sounds positive. EXTREMITIES: Negative cyanosis, clubbing, edema. NEUROLOGIC: The patient is alert and oriented x 3. The speech is fluent. There is no language dysfunction. Cranial nerves are intact. Motor examination, no focal motor deficits. ____ strength 4/5 left upper and lower extremities, compared to those on the right side which is 5/5 throughout. Sensory examination revealed diminished pinprick and light touch sense and ____ in both lower extremities. Deep tendon reflexes were symmetric and active with absent Achilles response. Gait not tested at this time. IMPRESSION: 1. Severe tension headaches, improved, probably rebound headaches. 2. Multiple medical problems including hypertension, hyperlipidemia, coronary artery disease, fibromyalgia, seizure disorder, chronic low back pain, depression, and anxiety. RECOMMENDATIONS: Continue with current management for headaches. He should avoid excessive use of narcotics. Otherwise, continue with current management initiated by Dr. Kelley. GREGORIO MENDOSA MD DR: ROSALINO/yas JOB#: [id number] / [id number]
[2017-02-12] MEDS ORDERED: PANTOPRAZOLE 40 MG TABLET. PO SCH (09:00)
--- NOTE | 2017-02-12 09:20 | PN ---
DATE: 02/11/2017 SUBJECTIVE: The patient said his headache has been better. He denies any nausea, vomiting, chest pain, shortness of breath, palpitation, dysarthria, or dysphagia. OBJECTIVE: GENERAL: A well-developed and well-nourished white man, in no acute distress. VITAL SIGNS: Blood pressure 160/53, respiratory rate 16, pulse 63 and temperature is 98.3, and oxygen saturation 96% on room air. HEENT: Normocephalic and atraumatic. Otherwise unremarkable. NECK: Supple. Negative for carotid bruits or lymphadenopathy. LUNGS: Clear to A and P. CARDIOVASCULAR: Regular rate and rhythm. Normal S1 and S2. No S3, S4, or murmur. ABDOMEN: Soft, bowel sounds positive. EXTREMITIES: Negative cyanosis, clubbing, edema. NEUROLOGIC: The patient is alert and oriented x 3. The speech is fluent. There is no language dysfunction. Cranial nerves are intact. Motor examination, no focal motor deficits. ____ strength 4/5 left upper and lower extremities, compared to those on the right side which is 5/5 throughout. Sensory examination revealed diminished pinprick and light touch sense and ____ in both lower extremities. Deep tendon reflexes were symmetric and active with absent Achilles response. Gait not tested at this time. IMPRESSION: 1. Severe tension headaches, improved, probably rebound headaches. 2. Multiple medical problems including hypertension, hyperlipidemia, coronary artery disease, fibromyalgia, seizure disorder, chronic low back pain, depression, and anxiety. RECOMMENDATIONS: Continue with current management for headaches. He should avoid excessive use of narcotics. Otherwise, continue with current management initiated by Dr. Kelley. M Josue HERNANDEZ MD DR: ALVARO/yas JOB#: [id number] / [id number]
--- NOTE | 2017-02-12 10:09 | NUR ---
IP: Pt is mrsa screen + requiring contact precautions. No need for droplet that was found within the medical record.
[2017-02-12] MEDS: BUDESONIDE 0.5 MG/2 ML NEBU NEB SCH (11:36)
[2017-02-12 14:51] VITALS: BP 154/84
--- NOTE | 2017-02-12 15:06 | NUR ---
Patient dismissed to home with . Home health to follow. IV site dc'd per protocol without difficulty. Reviewed home medications, follow-up instructions, and reasons to seek immediate medical attention with patient. Received verbalization of understanding, denies questions/needs.
--- NOTE | 2017-02-12 19:39 | DS ---
DATE OF DISCHARGE: 02/12/2017 DISCHARGE DIAGNOSES: 1. Self-harming behavior, suicide attempt ruled out. 2. Inappropriate use of narcotics. 3. Chronic pain. 4. Reported stroke-like symptoms -- stroke ruled out. 5. Depression. 6. Episode of aggression treated in the Emergency Room. 7. Tension headaches. 8. Hypertensive episode, now resolved. 9. Hyperlipidemia. 10. Coronary artery disease. 11. Anxiety. 12. Chronic pain. 13. 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 CONSULTANTS: Dr. Wilson and Dr. Benitez. HOSPITAL COURSE: A 56-year-old male who has had multiple other admissions to the hospital, but was admitted by Dr. Lisa Kelley on 02/09/2017 with complaints of headache and that he may have "overdosed" himself taking too much pain medicine. The patient then related later on that he just said that for "attention." The patient insisted that he had stroke-like symptoms; however, was seen by the urologist and had 2 subsequent CAT scans, both of which were negative. He remained at his baseline previous stroke. The entirety of his care was given by Dr. Lisa Kelley and my role is primarily discharge. Of note, he did request some narcotics from Dr. Wilson which I discouraged him from doing as on a previous admission he asked for some tranquilizers, which I did give him a small amount; however, I was called by the pharmacist informing me that he had just had the prescription filled by Dr. Gudino. PHYSICAL EXAMINATION: VITAL SIGNS: On the day of discharge, blood pressure 154/84, pulse 63 and pulse ox is 97% on 2 liters. GENERAL: The patient is sitting up in bed and he just finished his breakfast. He has no specific complaints. HEENT: Tongue was moist. NECK: Supple. LUNGS: Clear. CARDIOVASCULAR: Regular rhythm and rate. EXTREMITIES: Without edema. NEUROLOGIC: Please see Dr. Wilson's note. PLAN: Is to discharge on home health. The patient will get a new home health company. I will not be prescribing any of his narcotics or tranquilizers and informed the nursing staff. He will continue on his current medications and follow up with his regular physicians. GOLDY ROSE DO DR: VINNY/yas JOB#: [id number] / [id number]
--- NOTE | 2017-02-12 22:00 | PN ---
DATE: SUBJECTIVE: The patient continues to complain of headaches at 8/10 on pain scale and from chronic localized and sometimes radicular lower back pain. The patient stated he had a brief physical therapy, but he did not do well because of previous left-sided weakness due to a stroke. The patient asked for oxycodone 15 mg for pain control. The patient has been on oxycodone for several months and he is getting the medicine from primary care physician, Dr. Gudino in [place]. OBJECTIVE: GENERAL: Obese white male, not in acute distress. He weighs 227 pounds. VITAL SIGNS: Blood pressure 154/84, respiratory rate 18, pulse is 63 and regular and oxygen saturation is 97% on 2 liters via nasal cannula. HEENT: Normocephalic, atraumatic, otherwise unremarkable. NECK: Supple. Negative for carotid bruit, lymphadenopathy or thyromegaly. LUNGS: Clear to A and P. CARDIOVASCULAR: Regular rate and rhythm, normal S1, S2. There is no S3, S4 or murmur. ABDOMEN: Soft. Bowel sounds positive. EXTREMITIES: Negative for cyanosis, clubbing or pitting edema. NEUROLOGICAL EXAMINATION: Mental Status: The patient is alert and oriented x 3. Speech is fluent. There is no language dysfunction. Memory, judgment, and abstract thinking are normal. The patient denies hallucination or delusion. Cranial nerves are intact. Motor examination: The left-sided paresis secondary to old stroke. Sensory examination: Diminished pinprick and light touch senses in patchy distributions in both lower extremities. Deep tendon reflexes were symmetric and hypoactive with absent Achilles responses. Gait not tested. IMPRESSION: 1. Headache -- tension type. 2. Chronic low back pain. 3. Multiple medical problems, hypertension, hyperlipidemia, coronary artery disease, fibromyalgia, seizure disorders, depression, anxiety and chronic low back pain. RECOMMENDATIONS: Continue with current managements and avoid excessive use of narcotics. The patient has been on oxycodone for long time given by Dr. Gudino in [place]. M Josue HERNANDEZ MD DR: ALVARO/yas JOB#: [id number] / [id number]
--- NOTE | 2017-02-13 00:35 | CONS ---
DATE OF CONSULTATION: 02/11/2017 PSYCHIATRIC CONSULTATION IDENTIFYING DATA: The patient is a 56-year-old male seen in bed 105 [address] [facility] for a psychiatric consult requested by Dr. Kelley on account of possible suicide attempt. The patient was seen individually, discussed with nursing staff, reviewed the chart. CHIEF COMPLAINT: "I got mad, angry at home. I said I was suicidal, but I would never do anything to hurt myself. I have been seeing Dr. Gudino, my primary care physician for a long time and I would never do anything to hurt myself." HISTORY OF PRESENT ILLNESS: The patient presented to the Emergency Room complaining that he might have inadvertently overdosed himself. He was evaluated by Dr. Bejarano and this concern was reiterated, tele psychiatry consulted and recommendation was made for inpatient hospitalization. He was reportedly involuntarily placed on hold, especially since he had multiple guns at home and there was a concern by the treating providers at that time about his risk of self-harm. At one point, he had to be in restraints as well, was given 20 mg IM Geodon. Reportedly, CT head was unremarkable, though he is known to have a right middle cerebral artery infarct with left-sided hemiplegia. There was also question whether he could be having seizure disorder and complained of seizure-like activity and shaking. Dr. Wilson saw the patient and this was not corroborated. PAST PSYCHIATRIC HISTORY: Noncontributory. MEDICAL HISTORY: Left-sided weakness, right middle cerebral artery infarct which is old, history of coronary artery disease, hypertension, hyperlipidemia, DVT, obesity, seizure disorder, fibromyalgia, osteoarthritis, degenerative joint disk disease, lumbar region, hypothyroidism and hyperlipidemia. SURGICAL HISTORY: Total knee arthroplasty, colon resection and cervical spine fusion. FAMILY HISTORY: Diabetes mellitus, stroke. Mother had Alzheimer's. SOCIAL HISTORY: The patient is and lives with his of over 30 years. No alcohol or drug abuse. He used to work at the [employer] department at [employer] for many years. ALLERGIES: CYCLOBENZAPRINE, PEROXIN AND PREDNISONE. CURRENT PSYCHOTROPICS: Xanax p.r.n., amitriptyline 25 mg at bedtime, Cymbalta 60 mg a day and Restoril 30 mg at bedtime. REVIEW OF SYSTEMS: Positive for some tiredness. No CV, , pulmonary, eye system symptoms on review. MENTAL STATUS EXAMINATION: I sat with the patient at some length in his room with him as part of this interview. He is oriented to time, place and situation. Speech is coherent. Thought process is goal directed. No clear psychotic symptoms, suicidal or homicidal ideation. He denies being depressed and is agreeable to going to the [facility] starting the morning of 02/12/2017 for outpatient treatment, as was arranged after he was screened by the staff member at the [facility]. LABORATORY DATA: Reviewed. IMPRESSION: Adjustment disorder with depressed mood and anxiety, anxiety disorder, unspecified; history of major depressive disorder, rest of diagnoses as above. PLAN: From a psychiatric standpoint, I would keep everything unchanged for now. He is scheduled to follow up at the [facility] starting the morning of 02/12/2017. Dr. Kelley thank you for the opportunity to participate in your patient's care. We will follow with you. MAN Suze QUIROZ MD DR: IAN/yas JOB#: [id number] / [id number]
== END 2017-02-12 15:29 | disposition home health service (06) | DRG 102 ==
LOC: ER 19:15 → ICU 02-10 17:01 → 1 SOUTH 02-11 15:57
PROVIDERS: ADMIT Internal Medicine; ATTEND Internal Medicine
DX: G44.209 Tension-type headache, unspecified, not intractable (principal); G92 Toxic encephalopathy; I69.354 Hemiplegia and hemiparesis following cerebral infarction affecting left non-dominant side; F32.3 Major depressive disorder, single episode, severe with psychotic features; F11.20 Opioid dependence, uncomplicated; E03.9 Hypothyroidism, unspecified; E78.5 Hyperlipidemia, unspecified; F43.23 Adjustment disorder with mixed anxiety and depressed mood; G40.909 Epilepsy, unspecified, not intractable, without status epilepticus; G89.4 Chronic pain syndrome; I10 Essential (primary) hypertension; I25.10 Atherosclerotic heart disease of native coronary artery without angina pectoris; M79.7 Fibromyalgia; E11.42 Type 2 diabetes mellitus with diabetic polyneuropathy; M15.9 Polyosteoarthritis, unspecified; M54.5 Low back pain; Z96.652 Presence of left artificial knee joint; E66.9 Obesity, unspecified; Z82.3 Family history of stroke; Z82.0 Family history of epilepsy and other diseases of the nervous system; Z98.1 Arthrodesis status; Z78.1 Physical restraint status; Z83.3 Family history of diabetes mellitus; Z87.891 Personal history of nicotine dependence; Z90.49 Acquired absence of other specified parts of digestive tract; Z68.33 Body mass index [BMI] 33.0-33.9, adult; Z88.8 Allergy status to other drugs, medicaments and biological substances; Z86.718 Personal history of other venous thrombosis and embolism; I25.2 Old myocardial infarction
CPT/HCPCS: 36415; 70450; 80048; 82947; 85027; 85610; 87641; 94640; 96372; 96374; G0480; J0360; J1630; J1953; J2060; J2405; J3010; J3486; J7042; J7050; J7613; J7626; J8597; Q0162; 99285-25

== ENCOUNTER 2017-09-22 23:31 | Inpatient (IN) | payer MEDICARE ==
[~2017-09-22] VITALS: Ht 175.3 cm; Wt 105.2 kg
--- NOTE | 2017-09-22 23:41 | ED.ADGEN ---
Past History Past Medical History: Anemia, Arthritis, Asthma, Cancer, CVA, Coagulopathy, Depression, Diabetes, GERD, High Cholesterol, Heart Disease, Hypertension, CT, Seizure Past Surgical History: Appendectomy, Cholecystectomy, Knee Replacement Smoking: Cigarettes, Quit Greater Than 1 Year Alcohol Use: Rarely Drug Use: Opiates Adult General Chief Complaint Chief Complaint " .. I ve had a couple seizures tonight.. I have not been taking my Dilantin... " " I just decided I did not need it any more..." HPI HPI Patient is a 57 year old male who presents with above hx and of tonic/ clonic seizures. Pt. has been non-compliant with his Dilantin meds. Patient is not murmurs last time he took his Dilantin. Patient denies any trauma. Patient has history of chronic pain, diabetes, TIA/CVA with right-sided deficits. Patient normally follows with Dr. Richards. Review of Systems Review of Systems Constitutional: Denies fever or chills [] Eyes: Denies change in visual acuity, redness, or eye pain [] HENT: Denies nasal congestion or sore throat [] Respiratory: Denies cough or shortness of breath [] Cardiovascular: No additional information not addressed in HPI [] GI: Denies abdominal pain, nausea, vomiting, bloody stools or diarrhea [] : Denies dysuria or hematuria [] Musculoskeletal: Complains of chronic back pain or joint pain [] Integument: Denies rash or skin lesions [] Neurologic: Denies headache, focal weakness or sensory changes []Complaints of Seizure- recurrent this am Endocrine: Denies polyuria or polydipsia [] All other systems were reviewed and found to be within normal limits, except as documented in this note. Family History Family History Non-contributory Current Medications Current Medications Current Medications Medications (Trade) Dose Ordered Sig/Perfecto Start Time Stop Time Status Last Admin Dose Admin Folic Acid 5 mg STK-MED ONCE 09/23/17 01:36 09/23/17 01:37 DC Lorazepam (Ativan) 2 mg 1X ONCE 09/23/17 00:00 09/23/17 00:01 DC 09/23/17 01:11 2 MG Multivitamins/ Minerals (Infuvite Adult) 10 ml STK-MED ONCE 09/23/17 01:36 09/23/17 01:37 DC Multivitamins/ Minerals 10 ml/ Folic Acid 1 mg/ Thiamine HCl 100 mg/Sodium Chloride 1,011.1 ml @ 1,000 mls/ hr 1X ONCE 09/23/17 00:00 09/23/17 01:00 DC 09/23/17 01:45 1,000 MLS/HR Phenytoin Sodium (Dilantin) 600 mg 1X ONCE 09/23/17 00:00 09/23/17 00:01 DC 09/23/17 01:11 600 MG Thiamine HCl 200 mg STK-MED ONCE 09/23/17 01:35 09/23/17 01:36 DC See Nursing for home meds Allergies Allergies Allergies Coded Allergies Type Severity Reaction Last Updated Verified cyclobenzaprine Allergy Intermediate 02/28/15 No naproxen Allergy Intermediate 02/28/15 No prednisone Allergy Intermediate PSYCHOSIS 02/28/15 No I S O L A T I O N *CONTACT* Allergy Unknown 10/26/16 Yes Physical Exam Physical Exam Constitutional: Moderately acute distress, non-toxic appearance. [] HENT: Normocephalic, atraumatic, bilateral external ears normal, oropharynx moist, no oral exudates, nose normal. [] Eyes: PERRLA, EOMI, conjunctiva normal, no discharge. [] Neck: Normal range of motion, no tenderness, supple, no stridor. [] Cardiovascular: Bradycardia Heart rate regular rhythm, no murmur [] Lungs & Thorax: Bilateral breath sounds equal at apex with scattered wheezes on auscultation Basilar crackles. Abdomen: Bowel sounds normal, soft, no tenderness, no masses, no pulsatile masses. Obese. Old scars. Skin: Warm, dry, no erythema, no rash. [] Back: No tenderness, no CVA tenderness. [] Extremities: No tenderness, no cyanosis, no clubbing, ROM intact, ankle edema. Lt sided deficits prior CVA. Neurologic: Alert and oriented X 3, normal motor function, normal sensory function, no focal deficits noted. Pt did have two episodes of Tonic clonic seizures that resolved with IM Ativan. Psychologic: Affect anxious, judgement normal, mood normal. [] Current Patient Data Vital Signs Vital Signs Date Time Temp Pulse Resp B/P (MAP) Pulse Ox O2 Delivery O2 Flow Rate FiO2 09/23/17 01:36 58 24 155/82 (106) 96 Room Air 09/22/17 23:42 98.8 Lab Results Laboratory Tests Test 09/22/17 01:42 09/23/17 00:15 Urine Collection Type Void Urine Color Yellow Urine Clarity Clear Urine pH 5.5 Urine Specific Delano 1.020 Urine Protein Neg (NEG-TRACE) Urine Glucose (UA) Neg mg/dL (NEG) Urine Ketones (Stick) Neg mg/dL (NEG) Urine Blood Neg (NEG) Urine Nitrite Neg (NEG) Urine Bilirubin Neg (NEG) Urine Urobilinogen Dipstick 0.2 mg/dL (0.2 mg/dL) Urine Leukocyte Esterase Neg (NEG) Urine RBC 0 /HPF (0-2) Urine WBC 0 /HPF (0-4) Urine Squamous Epithelial Cells None /LPF Urine Bacteria 0 /HPF (0-FEW) Urine Opiates Screen Neg (NEG) Urine Methadone Screen Neg (NEG) Urine Barbiturates Neg (NEG) Urine Phencyclidine Screen Neg (NEG) Urine Amphetamine/Methamphetamine Neg (NEG) Urine Benzodiazepines Screen Neg (NEG) Urine Cocaine Screen Neg (NEG) Urine Cannabinoids Screen Neg (NEG) Urine Ethyl Alcohol Neg (NEG) White Blood Count 13.4 x10^3/uL (4.0-11.0) H Red Blood Count 4.47 x10^6/uL (4.30-5.70) Hemoglobin 13.7 g/dL (13.0-17.5) Hematocrit 40.7 % (39.0-53.0) Mean Corpuscular Volume 91 fL (79-100) Mean Corpuscular Hemoglobin 31 pg (25-35) Mean Corpuscular Hemoglobin Concent 34 g/dL (31-37) Red Cell Distribution Width 13.5 % (11.5-14.5) Platelet Count 284 x10^3/uL (140-400) Neutrophils (%) (Auto) 72 % (31-73) Lymphocytes (%) (Auto) 19 % (24-48) L Monocytes (%) (Auto) 8 % (0-9) Eosinophils (%) (Auto) 1 % (0-3) Basophils (%) (Auto) 0 % (0-3) Neutrophils # (Auto) 9.6 x10^3uL (1.8-7.7) H Lymphocytes # (Auto) 2.6 x10^3/uL (1.0-4.8) Monocytes # (Auto) 1.1 x10^3/uL (0.0-1.1) Eosinophils # (Auto) 0.1 x10^3/uL (0.0-0.7) Basophils # (Auto) 0.1 x10^3/uL (0.0-0.2) Segmented Neutrophils % 71 % (35-66) H Lymphocytes % 23 % (24-48) L Monocytes % 6 % (0-10) Platelet Estimate Adequate (ADEQUATE) Prothrombin Time 9.8 SEC (9.4-11.4) Prothrombin Time INR 1.0 (0.9-1.1) PTT < 21 SEC (23-33) L Sodium Level 143 mmol/L (136-145) Potassium Level 4.0 mmol/L (3.5-5.1) Chloride Level 107 mmol/L (98-107) Carbon Dioxide Level 30 mmol/L (21-32) Anion Gap 6 (6-14) Blood Urea Nitrogen 10 mg/dL (8-26) Creatinine 0.8 mg/dL (0.7-1.3) Estimated GFR (Cockcroft-Gault) 98.9 Glucose Level 77 mg/dL (70-99) Calcium Level 9.2 mg/dL (8.5-10.1) Magnesium Level 2.4 mg/dL (1.8-2.4) Total Bilirubin 0.1 mg/dL (0.2-1.0) L Direct Bilirubin 0.1 mg/dL (0.0-0.2) Aspartate Amino Transferase (AST) 18 U/L (15-37) Alanine Aminotransferase (ALT) 20 U/L (16-63) Alkaline Phosphatase 113 U/L (46-116) Creatine Kinase 55 U/L (39-308) Creatine Kinase MB (Mass) < 0.5 ng/mL (0.0-3.6) Creatine Kinase MB Relative Index 0.9 % (0-4) Troponin I Quantitative < 0.017 ng/mL (0-0.055) ID-Aiy-X-Type Natriuretic Peptide 76 pg/mL (0-124) Total Protein 8.0 g/dL (6.4-8.2) Albumin 3.3 g/dL (3.4-5.0) L Phenytoin (Dilantin) Level 3.6 mcg/mL (10.0-20.0) L Phenytoin Last Dose Date 07/14/11 Phenytoin Last Dose Time 1111 Ethyl Alcohol Level < 10 mg/dL (0-10) EKG EKG My interpretation of EKG shows as sinus bradycardia at rate 59 with Kwasi lateral changes. [] Radiology/Procedures Radiology/Procedures My interpretation of CXR shows prior neck fixation and hardware. COPD changes. DJD My interpretation of CT head shows[] findings of previous CVA-with right encephalomalacia. No acute shift, mass, edema, bleed or or fx. See formal report when available. Course & Med Decision Making Course & Med Decision Making Pertinent Labs and Imaging studies reviewed. (See chart for details) Discussed presentation, testing and tx.plan with Dr. Kelley. Will admit and get Neuro consult. Dilatin will be supplement- with IV . [] Final Impression Final Impression 1. Tonic Clonic Seizure- x 2 tonight 2. Hx. Seizure Disorder 3. Hx. Non-compliance with Seizure meds 4. Hx TIA/ CVA with Lt sided paresis. [] 5. Hx. HTN 6. DM 7. Hypoglycemia 8. Leukocytosis 9. Chronic Pain Problems: Dragon Disclaimer Dragon Disclaimer This electronic medical record was generated, in whole or in part, using a voice recognition dictation system. LAKEISHA ESCALERA MD Sep 22, 2017 23:41
[2017-09-23] MEDS ORDERED: PHENYTOIN SODIUM EXTENDED 100 MG CAPSULE PO ONE
[2017-09-23] MEDS ORDERED: LORazepam 1 MG TABLET PO ONE
[2017-09-23] MEDS ORDERED: MVI, ADULT NO.4 WITH VIT K 10 ML, FOLIC ACID SYRINGE for ER 1 MG, THIAMINE 100 MG in IV... IV ONE ×4
[2017-09-23 00:56] LABS: BASO # 0.1 x10^3/uL (0.0-0.2); BASO % 0 % (0-3); EOS # 0.1 x10^3/uL (0.0-0.7); EOS % 1 % (0-3); HEMATOCRIT 40.7 % (39.0-53.0); HEMOGLOBIN 13.7 g/dL (13.0-17.5); LYMPH # 2.6 x10^3/uL (1.0-4.8); LYMPH % 19 % (24-48); MEAN CORPUSCULAR HEMOGLOBIN 31 pg (25-35); MEAN CORPUSCULAR HGB CONC 34 g/dL (31-37); MEAN CORPUSCULAR VOLUME 91 fL (79-100); MONO # 1.1 x10^3/uL (0.0-1.1); MONO % 8 % (0-9); NEUT # 9.6 x10^3uL (1.8-7.7); NEUT % 72 % (31-73); PLATELET COUNT 284 x10^3/uL (140-400); RED BLOOD COUNT 4.47 x10^6/uL (4.30-5.70); RED CELL DISTRIBUTION WIDTH 13.5 % (11.5-14.5); WHITE BLOOD COUNT 13.4 x10^3/uL (4.0-11.0)
[2017-09-23 01:26] LABS: ALBUMIN 3.3 g/dL (3.4-5.0); ALK PHOS 113 U/L (46-116); ALT (SGPT) 20 U/L (16-63); ANION GAP 6 (6-14); AST (SGOT) 18 U/L (15-37); BLOOD UREA NITROGEN 10 mg/dL (8-26); CALCIUM 9.2 mg/dL (8.5-10.1); CARBON DIOXIDE 30 mmol/L (21-32); CHLORIDE 107 mmol/L (98-107); CREATINE KINASE 55 U/L (39-308); CREATININE 0.8 mg/dL (0.7-1.3); DIRECT BILIRUBIN 0.1 mg/dL (0.0-0.2); GFR 98.9; GLUCOSE 77 mg/dL (70-99); MAGNESIUM 2.4 mg/dL (1.8-2.4); PHENY 3.6 mcg/mL (10.0-20.0); SODIUM 143 mmol/L (136-145); TOTAL BILIRUBIN 0.1 mg/dL (0.2-1.0)
[2017-09-23] MEDS ORDERED: THIAMINE 200 MG/2 ML VIAL. IV ONE (01:35)
[2017-09-23] MEDS ORDERED: MVI, ADULT NO.4 WITH VIT K 10 ML VIAL IV ONE ×2 (01:36→02:21)
[2017-09-23] MEDS ORDERED: FOLIC ACID 5 MG/ML SYRINGE for ER IV ONE (01:36)
[2017-09-23] MEDS ORDERED: LORazepam 2 MG/ML VIAL ONE (02:07)
[2017-09-23] MEDS ORDERED: LORazepam 2 MG/ML VIAL IV ONE (02:10)
[2017-09-23 02:11] LABS: BARBITURATES NEG (NEG); BENZODIAZEPINES NEG (NEG); CANNABINOIDS NEG (NEG); COCAINE NEG (NEG); METHADONE NEG (NEG); OPIATES NEG (NEG); PHENCYCLIDINE NEG (NEG)
[2017-09-23 02:14] LABS: % LYMPHS 23 % (24-48); % MONOS 6 % (0-10); % SEGS 71 % (35-66)
[2017-09-23] MEDS ORDERED: ONDANSETRON PF 4 MG/2 ML VIAL. IV PRN (02:15)
[2017-09-23] MEDS ORDERED: LORazepam 2 MG/ML VIAL IV PRN (02:15)
[2017-09-23 02:17] LABS: PLT ESTIMATE ADEQUATE (ADEQUATE)
[2017-09-23] MEDS ORDERED: FOSPHENYTOIN 500 MG/10 ML VIAL IV ONE (02:18)
[2017-09-23] MEDS ORDERED: IV NORMAL SALINE 100ML 100 ML ONE (02:18)
[2017-09-23 02:23] LABS: AMPHETAMINE/METHAMPHETAMINE NEG (NEG)
[2017-09-23 02:28] LABS: BACTERIA,URINE 0 /HPF (0-FEW); BILIRUBIN,URINE NEG (NEG); CLARITY,URINE CLEAR; COLOR,URINE YELLOW; GLUCOSE,URINE NEG (NEG); NITRITE,URINE NEG (NEG); RBC,URINE 0 /HPF (0-2); UROBILINOGEN,URINE 0.2 mg/dL (0.2 mg/dL); WBC,URINE 0 /HPF (0-4)
[2017-09-23] MEDS ORDERED: FOSPHENYTOIN IV ONE (02:30)
[2017-09-23] MEDS ORDERED: NORMAL SALINE IV ONE (02:30)
--- NOTE | 2017-09-23 03:02 | EKG ---
[address] [address] Test Date: 2017-09-23 Test Time: 00:01:15 Pat Name: STACEY LOGAN Department: Room: Gender: M Family Medicine Chair: SHARIF : 1960 Requested By: LAKEISHA ESCALERA Order Number: [id number] Reading MD: Hai Erickson MD Measurements Intervals Lillie Rate: 59 P: OK: QRS: 44 QRSD: 94 T: 50 QT: 402 QTc: 402 Interpretive Statements SR Electronically Signed On 09-30-2017 23:57:56 HOSPICE MUSIC THERAPIST by Hai Erickson MD
[2017-09-23] MEDS ORDERED: oxyCODONE/APAP 5/325 1 TAB TABLET ONE (03:18)
[2017-09-23] MEDS ORDERED: oxyCODONE/APAP 5/325 1 TAB TABLET PO ONE (03:30)
--- NOTE | 2017-09-23 03:38 | RAD ---
RS Compliance Statement: One or more of the following individualized dose reduction techniques were utilized for this examination: 1. Automated exposure control 2. Adjustment of the mA and/or kV according to patient size 3. Use of iterative reconstruction technique CT HEAD AND CERVICAL SPINE WITHOUT CONTRAST History: Seizures. Pt having active seizure while attempting to complete exam. Comparison: CT head without contrast February 10, 2017. Procedure: Axial images are obtained of the head from the skull base through the vertex without IV contrast. Noncontrast helical CT of the cervical spine was performed. Axial, sagittal, and coronal reconstructions were obtained. Findings: There is motion artifact at the skull base. Images of this region are nondiagnostic. Large old right MCA distribution infarct. The ventricles and sulci are normal for the patient's age. No mass-effect, midline shift, hemorrhage or obvious acute infarction is identified. Basilar cisterns are patent. Bone windows demonstrate no significant calvarial abnormality. The visualized paranasal sinuses are clear. Mastoid air cells are well aerated. There is no evidence of acute fracture or acute malalignment. There is multilevel facet hypertrophy. The left C2/C3 facet joint is fused. There is anterior fusion of C5-C7. The disc spaces are partially fused. There is mild grade 1 anterolisthesis of C2 on C3. Alignment otherwise maintained. At C2/C3 there is moderate left neural foraminal narrowing due to facet hypertrophy. There is multilevel neural foraminal narrowing. Uncinate process hypertrophy also contributes. Visualized soft tissues of the neck demonstrate no significant abnormalities. The visualized lung apices are clear. IMPRESSION: 1. No acute intracranial abnormality. 2. Large old right MCA distribution infarct. 3. No acute fracture of the cervical spine. Electronically signed by: Ramirez Churchill MD (09/23/2017 3:35 AM) [facility]
[2017-09-23 03:51] VITALS: BP 140/85
--- NOTE | 2017-09-23 08:08 | RAD ---
EXAM: Chest, single view. HISTORY: Seizure. COMPARISON: 01/11/2017. FINDINGS: A frontal view of the chest is obtained. The costophrenic angles are excluded from the [id number]. There is no infiltrate, effusion or pneumothorax. The heart is normal in size. There is mild stable diffuse interstitial prominence. There are a few faint nodular opacities which are likely due to overlying osseous and pulmonary vascular shadows. There is cervical spinal fusion instrumentation. IMPRESSION: No acute pulmonary finding.
[2017-09-23] MEDS ORDERED: PHENYTOIN SODIUM EXTENDED 100 MG CAPSULE PO SCH ×2 (09:00→11:00)
[2017-09-23 11:00] VITALS: BP 136/64
[2017-09-23] MEDS ORDERED: levETIRAcetam 250 MG TABLET PO SCH (11:00)
[2017-09-23] MEDS: LISINOPRIL 10 MG TABLET PO SCH (11:00)
[2017-09-23] MEDS ORDERED: METOCLOPRAMIDE 10 MG TABLET PO PRN (11:00)
[2017-09-23] MEDS: levETIRAcetam 500 MG TABLET PO SCH ×2 (11:00→20:41)
[2017-09-23] MEDS: hydrALAZINE 10 MG TABLET PO SCH ×3 (11:00→20:41)
[2017-09-23] MEDS: FOLIC ACID 1 MG TABLET PO SCH (11:07)
[2017-09-23] MEDS: DULoxetine HCL 60 MG CAPSULE.DR PO SCH (11:07)
[2017-09-23] MEDS: GABAPENTIN 300 MG CAPSULE. PO SCH ×2 (11:07→20:41)
[2017-09-23] MEDS: MORPHINE ER 60 MG TABLET.ER PO SCH ×2 (11:07→20:41)
[2017-09-23] MEDS: PREGABALIN 150 MG CAPSULE PO SCH ×3 (11:07→20:40)
[2017-09-23 14:50] VITALS: BP 147/76
--- NOTE | 2017-09-23 16:30 | HP ---
ADMIT DATE: 09/23/2017 HISTORY OF PRESENT ILLNESS: The patient is a 57-year-old male patient who came to the Emergency Room stating that he has a couple of seizures last night. "I have not been taking by Dilantin. I just decided I did not need it anymore." He apparently has been noncompliant with his Dilantin medication. He does not remember when the last time he took the Dilantin. The patient denies any trauma. Has a history of chronic pain and right-sided deficits. He was evaluated in the Emergency Room and his toxic screen showed that his phenytoin level was only 3.6. This is definitely subtherapeutic. However, the toxicology screen was negative for other drugs or alcohol. He has had a CT scan of the head and cervical spine showed that there are no acute intracranial abnormalities, right middle cerebral artery distribution infarct, no acute fracture of the cervical spine. The patient was admitted and we did consult Dr. Wilson who restarted him on his phenytoin at 300 mg twice a day together with his other medication and to continue all other medication and to observe him and start the process of physical and occupational therapies as he is very unsteady in his gait. PAST MEDICAL HISTORY: Significant for Crohn's disease, history of severe headaches, DVT, hypertension, diabetes, hyperlipidemia, chronic pain syndrome, fibromyalgia, osteoarthritis, and colon cancer. PAST SURGICAL HISTORY: Significant for appendectomy, cholecystectomy, left total knee arthroplasty, colon resection as well as cardiac catheterization, but no stent deployment. FAMILY HISTORY: Unremarkable. SOCIAL HISTORY: He apparently is and he lives alone. He does not smoke, but chews tobacco every other day. He does not drink alcohol or use any recreational drugs. ALLERGIES: He is allergic to Cyclobenzaprine, NAPROXEN, and PREDNISONE. MEDICATIONS: He is currently on following medications: He is on Tylenol with Codeine 1 tablet every 6 hours, alprazolam 0.5 mg every 12 hours, alprazolam 1 mg every 6 hours, amitriptyline 25 mg at bedtime, atorvastatin calcium 40 mg at bedtime, Symbicort 80/4.5 mcg two puffs twice a day, duloxetine for Cymbalta 60 mg once a day, folic acid 1 mg once a day, gabapentin 300 mg p.o. b.i.d., hydralazine 10 mg p.o. b.i.d., levetiracetam 500 mg twice a day, lisinopril 10 mg once a day, metoclopramide 10 mg every 8 hours as needed, morphine sulfate 50 mg every 8 hours as needed, morphine sulfate extended release 60 mg twice a day, omeprazole 20 mg once a day, ondansetron, Zofran 4 mg every 6 hours, oxycodone 10 mg every 6 hours as needed, phenytoin sodium 300 mg p.o. b.i.d., Lyrica 150 mg t.i.d., temazepam 30 mg at bedtime and warfarin sodium 5 mg daily. REVIEW OF SYSTEMS: As per history of present illness. PHYSICAL EXAMINATION GENERAL: When I examined him, he was sitting the edge of the bed comfortably in no apparent respiratory distress, slightly pale, but no jaundice, cyanosis or thyromegaly. No jugular venous distention. No limb edema. VITAL SIGNS: His heart rate was 68, blood pressure 147/76, temperature was 99, respiratory rate 20, and oxygen saturation was 97% on room air. HEAD, EYES, EARS, NOSE AND THROAT: Showed normocephalic, atraumatic. NECK: Supple. HEART: Showed normal first and second heart sounds. No gallop, rub or murmur. CHEST: Clear to auscultation. No crepitation or rhonchi. ABDOMEN: Distended, soft, nontender. NEUROLOGIC: He was awake, alert, clearly very unsteady in his gait. He has residual left-sided hemiplegia. LABORATORY DATA: This morning showed a white cell count of 13,400, hemoglobin 13.7, hematocrit 41, MCV 91, and platelet count of 284,000. His prothrombin time was 9.8, INR of 1, aPTT was less than 21. His serum sodium 143, potassium 4, chloride 107, bicarbonate 30, anion gap of 6, BUN 10, creatinine 0.8, estimated GFR was 99 mL per minute. His glucose was 77 mg/dL. Calcium was 9.2, magnesium 2.4. Total bilirubin, AST, ALT, alkaline phosphatase were normal. His CK was 55. His total protein was 8 and albumin was 3.3 g/dL. Urinalysis showed the urine was yellow, clear with a pH of 5.5, specific gravity of 1.020. The urine was negative for protein, glucose, ketones, blood, nitrite and leukocyte esterase. There was 0 RBCs, 0 wbc's and 0 bacteria and urine toxicology screen showed that the phenytoin level was only 3.6; however, the urine was negative for opiates, methadone, barbiturates, phencyclidine, amphetamine, methamphetamine, benzodiazepine, cocaine, cannabinoids and alcohol. IMPRESSION AND PLAN: In summary, this is a 57-year-old male patient with known history of seizure disorder, who is noncompliant with his medication and apparently had had 2 tonic-clonic seizures overnight, apparently has not been taking his phenytoin for weeks now according to him and he was restarted on his phenytoin at 300 mg twice a day and continues to be on Lyrica 500 twice a day. 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 The patient was seen by Dr. Wilson. I would get the physical and occupational therapy decide on further management accordingly. MARCO A GRIJALVA MD DR: DEMETRIA/yas JOB#: [id number] / [id number]
[2017-09-23] MEDS: WARFARIN 5 MG TABLET. PO SCH (17:23)
[2017-09-23] MEDS: ALPRAZolam 0.5 MG TABLET PO PRN (17:47)
--- NOTE | 2017-09-23 19:06 | PDOC ---
Exam Note: Rocky Note: Please also refer to the separate dictated note~for this date of service dictated separately.~Patient seen individually. Discussed the patient with Nursing staff reviewed the chart.~Reviewed interim history and current functioning. Reviewed vital signs,~Labs/ Radiology~and current medications noted below. Continue current treatment with the changes noted in the dictated addendum note Assessment: Vital Signs: Vital Signs Date Time Temp Pulse Resp B/P (MAP) Pulse Ox O2 Delivery O2 Flow Rate FiO2 09/23/17 15:14 97 09/23/17 14:50 99.0 68 20 147/76 (99) Room Air I&O Intake and Output 09/23/17 07:00 Intake Total 640 ml Balance 640 ml Intake Oral 0 ml IV Total 640 ml Labs: Laboratory Tests Test 09/23/17 00:15 09/23/17 08:25 09/23/17 09:13 09/23/17 11:35 White Blood Count 13.4 x10^3/uL (4.0-11.0) H Red Blood Count 4.47 x10^6/uL (4.30-5.70) Hemoglobin 13.7 g/dL (13.0-17.5) Hematocrit 40.7 % (39.0-53.0) Mean Corpuscular Volume 91 fL (79-100) Mean Corpuscular Hemoglobin 31 pg (25-35) Mean Corpuscular Hemoglobin Concent 34 g/dL (31-37) Red Cell Distribution Width 13.5 % (11.5-14.5) Platelet Count 284 x10^3/uL (140-400) Neutrophils (%) (Auto) 72 % (31-73) Lymphocytes (%) (Auto) 19 % (24-48) L Monocytes (%) (Auto) 8 % (0-9) Eosinophils (%) (Auto) 1 % (0-3) Basophils (%) (Auto) 0 % (0-3) Neutrophils # (Auto) 9.6 x10^3uL (1.8-7.7) H Lymphocytes # (Auto) 2.6 x10^3/uL (1.0-4.8) Monocytes # (Auto) 1.1 x10^3/uL (0.0-1.1) Eosinophils # (Auto) 0.1 x10^3/uL (0.0-0.7) Basophils # (Auto) 0.1 x10^3/uL (0.0-0.2) Segmented Neutrophils % 71 % (35-66) H Lymphocytes % 23 % (24-48) L Monocytes % 6 % (0-10) Platelet Estimate Adequate (ADEQUATE) Prothrombin Time 9.8 SEC (9.4-11.4) Prothrombin Time INR 1.0 (0.9-1.1) PTT < 21 SEC (23-33) L Sodium Level 143 mmol/L (136-145) Potassium Level 4.0 mmol/L (3.5-5.1) Chloride Level 107 mmol/L (98-107) Carbon Dioxide Level 30 mmol/L (21-32) Anion Gap 6 (6-14) Blood Urea Nitrogen 10 mg/dL (8-26) Creatinine 0.8 mg/dL (0.7-1.3) Estimated GFR (Cockcroft-Gault) 98.9 Glucose Level 77 mg/dL (70-99) Calcium Level 9.2 mg/dL (8.5-10.1) Magnesium Level 2.4 mg/dL (1.8-2.4) Total Bilirubin 0.1 mg/dL (0.2-1.0) L Direct Bilirubin 0.1 mg/dL (0.0-0.2) Aspartate Amino Transferase (AST) 18 U/L (15-37) Alanine Aminotransferase (ALT) 20 U/L (16-63) Alkaline Phosphatase 113 U/L (46-116) Creatine Kinase 55 U/L (39-308) Creatine Kinase MB (Mass) < 0.5 ng/mL (0.0-3.6) Creatine Kinase MB Relative Index 0.9 % (0-4) Troponin I Quantitative < 0.017 ng/mL (0-0.055) < 0.017 ng/mL (0-0.055) YG-Say-Y-Type Natriuretic Peptide 76 pg/mL (0-124) Total Protein 8.0 g/dL (6.4-8.2) Albumin 3.3 g/dL (3.4-5.0) L Phenytoin (Dilantin) Level 3.6 mcg/mL (10.0-20.0) L Phenytoin Last Dose Date 07/14/11 Phenytoin Last Dose Time 1111 Ethyl Alcohol Level < 10 mg/dL (0-10) Glucose (Fingerstick) 155 mg/dL (70-99) H 114 mg/dL (70-99) H Test 09/23/17 16:41 Glucose (Fingerstick) 87 mg/dL (70-99) Current Medications: Meds: Current Medications Phenytoin Sodium (Dilantin) 600 mg 1X ONCE PO Last administered on 09/23/17at 01:11; Start 09/23/17 at 00:00; Stop 09/23/17 at 00:01; Status DC Lorazepam (Ativan) 2 mg 1X ONCE PO Last administered on 09/23/17at 01:11; Start 09/23/17 at 00:00; Stop 09/23/17 at 00:01; Status DC Multivitamins/ Minerals 10 ml/ Folic Acid 1 mg/ Thiamine HCl 100 mg/Sodium Chloride 1,011.1 ml @ 1,000 mls/ hr 1X ONCE IV Last administered on at 01:45; Start 09/23/17 at 00:00; Stop 09/23/17 at 01:00; Status DC Thiamine HCl 200 mg STK-MED ONCE IV ; Start 09/23/17 at 01:35; Stop 09/23/17 at 01:36; Status DC Multivitamins/ Minerals (Infuvite Adult) 10 ml STK-MED ONCE IV ; Start 09/23/17 at 01:36; Stop 09/23/17 at 01:37; Status DC Folic Acid 5 mg STK-MED ONCE IV ; Start 09/23/17 at 01:36; Stop 09/23/17 at 01: 37; Status DC Fosphenytoin Sodium 2000 mg/ Sodium Chloride 140 ml @ 200 mls/hr 1X ONCE IV Last administered on 09/23/17at 03:00; Start 09/23/17 at 02:30; Stop 09/23/17 at 03:11; Status DC Lorazepam (Ativan) 2 mg STK-MED ONCE .ROUTE ; Start 09/23/17 at 02:07; Stop at 02:08; Status DC Lorazepam (Ativan) 2 mg 1X ONCE IV ; Start 09/23/17 at 02:10; Stop 09/23/17 at 02:25; Status DC Ondansetron HCl (Zofran) 4 mg PRN Q4HRS PRN IV NAUSEA/VOMITING; Start 09/23/17 at 02:15; Stop 09/24/17 at 02:14 Phenytoin Sodium (Dilantin) 300 mg DAILY PO Last administered on 09/23/17at 08: 37; Start 09/23/17 at 09:00; Stop 09/23/17 at 11:05; Status DC Lorazepam (Ativan) 2 mg 1X PRN PRN IV seizure Last administered on 09/23/17at 02 :10; Start 09/23/17 at 02:15 Sodium Chloride 100 ml @ As Directed STK-MED ONCE .ROUTE ; Start 09/23/17 at 02 :18; Stop 09/23/17 at 02:19; Status DC Fosphenytoin Sodium (Cerebyx) 500 mg STK-MED ONCE IV ; Start 09/23/17 at 02:18; Stop 09/23/17 at 02:19; Status DC Multivitamins/ Minerals (Infuvite Adult) 10 ml STK-MED ONCE IV ; Start 09/23/17 at 02:21; Stop 09/23/17 at 02:22; Status DC Oxycodone/ Acetaminophen (Percocet 5/325) 1 tab STK-MED ONCE .ROUTE ; Start at 03:18; Stop 09/23/17 at 03:19; Status DC Oxycodone/ Acetaminophen (Percocet 5/325) 2 tab 1X ONCE PO Last administered on 09/23/17at 03:21; Start 09/23/17 at 03:30; Stop 09/23/17 at 03:31; Status DC Alprazolam (Xanax) 0.5 mg Q12HR PRN PO ANXIETY / AGITATION Last administered on 09/23/17at 17:47; Start 09/23/17 at 11:00 Amitriptyline HCl (Elavil) 25 mg HS PO ; Start 09/23/17 at 21:00 Duloxetine HCl (Cymbalta) 60 mg DAILY PO Last administered on 09/23/17at 11:07; Start 09/23/17 at 11:00 Folic Acid (Folic Acid) 1 mg DAILY PO Last administered on 09/23/17at 11:07; Start 09/23/17 at 11:00 Gabapentin (Neurontin) 300 mg BID PO Last administered on 09/23/17at 11:07; Start 09/23/17 at 11:00 Hydralazine HCl (Apresoline) 10 mg TID PO Last administered on 09/23/17at 14:42 ; Start 09/23/17 at 11:00 Levetiracetam (Keppra) 500 mg BID PO ; Start 09/23/17 at 11:00; Stop 09/23/17 at 11:10; Status DC Lisinopril (Prinivil) 10 mg DAILY PO ; Start 09/23/17 at 11:00 Metoclopramide HCl (Reglan) 10 mg Q8HRS PRN PO Crohns; Start 09/23/17 at 11:00 Morphine Sulfate (Morphine Ir) 15 mg Q8HRS PRN PO BREAKTHROUGH PAIN; Start at 11:00 Morphine Sulfate (Ms Contin) 60 mg BID PO Last administered on 09/23/17at 11:07 ; Start 09/23/17 at 11:00 Phenytoin Sodium (Dilantin) 300 mg BID PO ; Start 09/23/17 at 11:00; Stop at 11:06; Status DC Pregabalin (Lyrica) 150 mg TID PO Last administered on 09/23/17at 14:42; Start 09/23/17 at 11:00 Temazepam (Restoril) 30 mg HS PO ; Start 09/23/17 at 21:00 Warfarin Sodium (Coumadin) 5 mg DAILY16 PO Last administered on 09/23/17at 17:23 ; Start 09/23/17 at 16:00 Atorvastatin Calcium (Lipitor) 40 mg QHS PO ; Start 09/23/17 at 21:00 Warfarin Sodium (Coumadin Per Physician) 1 each PRN DAILY PRN MC SEE COMMENTS; Start 09/23/17 at 11:15 Phenytoin Sodium (Dilantin) 300 mg BID PO ; Start 09/23/17 at 21:00 Levetiracetam (Keppra) 500 mg BID PO ; Start 09/23/17 at 11:00 Active Scripts Active Zofran (Ondansetron Hcl) 4 Mg Tablet 1 Tab PO PRN Q6HRS PRN Tylenol With Codeine #3 Tablet (Acetaminophen With Codeine) 1 Each Tablet 1 Tab PO Q6HRS PRN Reported Oxycodone Hcl 10 Mg Tablet 10 Mg PO PRN Q6HRS PRN last dose 2am next dose as needed TIME: NEXT DOSE DUE: DATE: TIME: Alprazolam 1 Mg Tablet 1 Mg PO PRN Q6HRS PRN last dose 5am next dose 11am TIME: NEXT DOSE DUE: DATE: TIME: Symbicort 80-4.5 Mcg Inhaler (Budesonide/Formoterol Fumarate) 10.2 Gm Hfa.aer.ad 2 Puff IH BID last dose this morning next dose tonight TIME: NEXT DOSE DUE: DATE: TIME: Alprazolam 0.5 Mg Tablet 0.5 Mg PO Q12HR PRN took 1mg at 5am this morning TIME: NEXT DOSE DUE: DATE: TIME: Levetiracetam 250 Mg Tablet 500 Mg PO BID last dose this morning next dose tonight TIME: NEXT DOSE DUE: DATE: TIME: Metoclopramide Hcl 10 Mg Tablet 10 Mg PO Q8HRS PRN may resume as needed DATE: TIME: NEXT DOSE DUE: DATE: TIME: Hydralazine Hcl 10 Mg Tablet 10 Mg PO TID last dose this morning next dose this afternoon TIME: NEXT DOSE DUE: DATE: TIME: Atorvastatin Calcium 40 Mg Tablet 40 Mg PO HS last dose last night next dose tonight TIME: NEXT DOSE DUE: DATE: TIME: Duloxetine Hcl 60 Mg Capsule.dr 60 Mg PO DAILY last dose this morning next dose tomorrow TIME: NEXT DOSE DUE: DATE: TIME: Morphine Sulfate Er (Morphine Sulfate) 60 Mg Tablet.er 60 Mg PO BID last dose this morning next dose tonight TIME: NEXT DOSE DUE: DATE: TIME: Morphine Sulfate 15 Mg Tablet 15 Mg PO Q8HRS PRN last dose 5am next dose 1pm TIME: NEXT DOSE DUE: DATE: TIME: Temazepam 30 Mg Capsule 30 Mg PO HS last dose last night next dose tonight TIME: NEXT DOSE DUE: DATE: TIME: Lisinopril 10 Mg Tablet 10 Mg PO DAILY last dose this morning next dose tomorrow Omeprazole 20 Mg Capsule.dr 20 Mg PO DAILY last dose this morning next dose tomorrow TIME: NEXT DOSE DUE: DATE: TIME: Gabapentin 300 Mg Capsule 300 Mg PO BID last dose this morning next dose tonight TIME: NEXT DOSE DUE: DATE: TIME: Lyrica (Pregabalin) 150 Mg Capsule 150 Mg PO TID last dose this morning next dose this afternoon NEXT DOSE DUE: DATE: TIME: Amitriptyline Hcl 25 Mg Tablet 25 Mg PO HS last dose last night next dose tonight TIME: NEXT DOSE DUE: DATE: TIME: Folic Acid 1 Mg Tablet 1 Mg PO DAILY last dose this morning next dose tomorrow TIME: NEXT DOSE DUE: DATE: TIME: Warfarin Sodium 5 Mg Tablet 5 Mg PO DAILY08 last dose yesterday evening next dose this evening TIME: NEXT DOSE DUE: DATE: TIME: Dilantin (Phenytoin Sodium Extended) 100 Mg Capsule 300 Mg PO BID last dose this morning next dose tonight TIME: NEXT DOSE DUE: DATE: TIME: I have reviewed the current psychotropics carefully including drug interactions. Risk benefit ratio favors no change other than as noted in my dictated progress note. Diagnosis: Problems: (1) Major depressive disorder, recurrent episode (2) Anxiety disorder (3) Seizure disorder (4) Low back pain AIDEN QUIROZ MD Sep 23, 2017 19:06
[2017-09-23 20:12] VITALS: BP 173/80
[2017-09-23] MEDS: TEMAZEPAM 30 MG CAPSULE PO SCH (20:40)
[2017-09-23] MEDS: ATORVASTATIN CALCIUM 20 MG TABLET PO SCH (20:41)
[2017-09-23] MEDS: AMITRIPTYLINE HCL 25 MG TABLET PO SCH (20:42)
[2017-09-23] MEDS: PHENYTOIN SODIUM EXTENDED 100 MG CAPSULE PO SCH (20:42)
[2017-09-24 05:56] VITALS: BP 112/64
[2017-09-24] MEDS: ALPRAZolam 0.5 MG TABLET PO PRN ×2 (05:56→09:59)
[2017-09-24] MEDS: MORPHINE IR 15 MG TABLET PO PRN ×2 (05:57→16:28)
[2017-09-24 07:12] LABS: BASO # 0.1 x10^3/uL (0.0-0.2); BASO % 2 % (0-3); EOS # 0.2 x10^3/uL (0.0-0.7); EOS % 3 % (0-3); HEMATOCRIT 39.7 % (39.0-53.0); HEMOGLOBIN 13.2 g/dL (13.0-17.5); LYMPH # 2.5 x10^3/uL (1.0-4.8); LYMPH % 35 % (24-48); MEAN CORPUSCULAR HEMOGLOBIN 30 pg (25-35); MEAN CORPUSCULAR HGB CONC 33 g/dL (31-37); MEAN CORPUSCULAR VOLUME 91 fL (79-100); MONO # 0.6 x10^3/uL (0.0-1.1); MONO % 9 % (0-9); NEUT # 3.7 x10^3uL (1.8-7.7); NEUT % 52 % (31-73); PLATELET COUNT 262 x10^3/uL (140-400); RED BLOOD COUNT 4.35 x10^6/uL (4.30-5.70); RED CELL DISTRIBUTION WIDTH 13.8 % (11.5-14.5); WHITE BLOOD COUNT 7.1 x10^3/uL (4.0-11.0)
[2017-09-24 07:21] LABS: PHENY 27.5 mcg/mL (10.0-20.0)
[2017-09-24 07:24] LABS: ALBUMIN 3.3 g/dL (3.4-5.0); ALBUMIN/GLOBULIN RATIO 0.9 (1.0-1.7); CALCIUM 8.9 mg/dL (8.5-10.1); CREATININE 0.8 mg/dL (0.7-1.3); GFR 98.9; POTASSIUM 4.8 mmol/L (3.5-5.1); TOTAL BILIRUBIN 0.3 mg/dL (0.2-1.0); TOTAL PROTEIN 7.1 g/dL (6.4-8.2)
--- NOTE | 2017-09-24 07:31 | CONS ---
DATE OF CONSULTATION: 09/23/2017 This note covers elements not covered in my initial note of 09/23/2017. IDENTIFYING DATA: The patient is a 57-year-old male who is seen in bed [facility] for a psychiatric consult as requested by Dr. Kelley to evaluate the patient for his confusion, depression and intermittent agitation after he was admitted having suffered from seizures consequent to noncompliance with his phenytoin: The patient was seen individually evening of 09/23/2017. Discussed with nursing staff, reviewed the chart. CHIEF COMPLAINT: "Yes, I have been depressed. I don't like taking pills. That is why I stopped my medication." HISTORY OF PRESENT ILLNESS: The patient reportedly lives at home by himself and has 3 adult children, 1 son and 2 daughters who do not live close by at all. He admits to feeling depressed, somewhat more confused, though he minimizes the latter. He stopped his Dilantin because he felt he did not need it anymore. He presented to the ER after he had a couple of seizures the previous evening. Dilantin level was subtherapeutic and drug screen was negative for drugs and alcohol. CT head and cervical spine, no acute changes, right middle cerebral artery distribution infarct. No acute fracture of the cervical spine. He has since been restarted on Dilantin 300 mg twice a day per Dr. Wilson, Neurology. He remains quite unsteady in his gait, confused, depressed, though he minimizes the confusion. No suicidal or homicidal ideation. No clear symptoms of bipolar disorder. No psychotic symptoms. 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 He states he is unable to tolerate the Zoloft. No alcohol or drug abuse history. PAST MEDICAL HISTORY: Crohn's disease, history of severe headaches, seizure disorder, DVT, hypertension, diabetes, hyperlipidemia, chronic pain syndrome, fibromyalgia, osteoarthritis, colon cancer. PAST SURGICAL HISTORY: Appendectomy, cholecystectomy, left total knee arthroplasty, colon resection, cardiac catheterization, no stent. FAMILY HISTORY: Unremarkable. SOCIAL HISTORY: He is , lives alone. No alcohol or drug abuse, does not smoke, but chews tobacco every other day. ALLERGIES: CYCLOBENZAPRINE, NAPROXEN and PREDNISONE. CURRENT PSYCHOTROPICS: Xanax 0.5 mg q.12h., 1 mg q.6h., amitriptyline 25 mg at bedtime, Cymbalta 60 mg a day. He was on Keppra 500 mg twice a day and Dilantin 300 mg b.i.d., the latter two which he had refused to take and temazepam 30 mg at bedtime. MENTAL STATUS EXAMINATION: I met with the patient evening of 09/23/2017. He is oriented to himself, knew it was 2017, but felt it was October, knew he was in the hospital, unable to do serial 7's. Attention span short. Speech, a little confused, difficult to understand. Mood depressed, anxious. Affect, mood congruent. No psychotic symptoms, suicidal or homicidal ideation. LABORATORY DATA: Reviewed. IMPRESSION: Major depressive disorder, recurrent; anxiety disorder, unspecified; cognitive disorder, unspecified versus major neurocognitive disorder, early vascular with depression. Rest as above including seizure disorder, noncompliance with treatment prescribed for his seizures. PLAN: From a psychiatric standpoint, continue his current psychotropics and may need to increase the Cymbalta depending on how he does once the seizure disorder is controlled once again. Cymbalta may need to be increased to 90 mg a day, but will defer this until he is medically stabilized. Dr. Kelley, thank you for the opportunity to participate in your patient's care. We will follow with you. AIDEN QUIROZ MD DR: IAN/yas JOB#: [id number] / [id number]
[2017-09-24] MEDS: PREGABALIN 150 MG CAPSULE PO SCH ×3 (08:22→20:28)
[2017-09-24] MEDS: FOLIC ACID 1 MG TABLET PO SCH (08:23)
[2017-09-24] MEDS: LISINOPRIL 10 MG TABLET PO SCH (08:23)
[2017-09-24] MEDS: GABAPENTIN 300 MG CAPSULE. PO SCH ×2 (08:23→20:27)
[2017-09-24] MEDS: MORPHINE ER 60 MG TABLET.ER PO SCH ×2 (08:24→20:32)
[2017-09-24] MEDS: levETIRAcetam 500 MG TABLET PO SCH ×2 (08:24→20:28)
[2017-09-24] MEDS: DULoxetine HCL 60 MG CAPSULE.DR PO SCH (08:24)
[2017-09-24] MEDS: hydrALAZINE 10 MG TABLET PO SCH ×3 (08:25→20:27)
[2017-09-24] MEDS: PHENYTOIN SODIUM EXTENDED 100 MG CAPSULE PO SCH (09:00)
--- NOTE | 2017-09-24 09:39 | CONS ---
DATE OF CONSULTATION: 09/23/2017 REFERRING PHYSICIAN: Dr. Kelley. REASON FOR CONSULTATION: Breakthrough seizures. HISTORY OF PRESENT ILLNESS: This is a 57-year-old right-handed white male, who ____ for several years, was admitted through the Emergency Room this morning after he presented with ____ seizure. According to the patient, he has been for the last 3 weeks and he lives by himself at home. He quit taking his home medications including Dilantin and Keppra. He stated he had 2 seizure activities at home and one seizure in the Emergency Room at [facility] on the day of admission. The seizure was described as generalized tonic-clonic seizure with postictal confusion and disorientation. The patient also complains of cramps in his calves. He denies headaches. He also complains of chronic localized lower back pain and sometimes radicular lower back pain associated with numbness and paresthesia of the legs. He denies any injuries or recent falls. Initial nonenhanced head CT scan revealed evidence of old right MCA infarct, which resulted in left hemiparesis, somewhat improved by physical activities. His Dilantin level was subtherapeutic at 3.6. PAST MEDICAL HISTORY: Significant for diabetes mellitus, ____ anemia, asthma, cancer, stroke as mentioned above, depression, anxiety, GERD, hypertension, hyperlipidemia, history of myocardial infarction, and seizure disorder. PAST SURGICAL HISTORY: Significant for cholecystectomy, left knee replacement, appendectomy, anterior cervical spine fusion. SOCIAL HISTORY: The patient has been recently . He used to smoke cigarettes, but he quit a year ago. He denies alcohol drinking or illicit drug use. CURRENT ____: Lyrica, lisinopril, metoclopramide, morphine sulfate ____ p.r.n., omeprazole, ____, phenytoin 300 mg b.i.d., folic acid 1 mg daily, temazepam 30 mg at bedtime, and warfarin 5 mg. REVIEW OF SYSTEMS: A 10-point review of system was performed as mentioned above in the history of present illness, otherwise unremarkable. PHYSICAL EXAMINATION: GENERAL: ____. VITAL SIGNS: Blood pressure ____. NECK: Supple. Negative for carotid bruit, lymphadenopathy, or thyromegaly. LUNGS: Clear to A and P. CARDIOVASCULAR: Regular rate and rhythm, normal S1, S2. There is no S3, S4 or murmur. ABDOMEN: Soft. Bowel sounds positive. EXTREMITIES: Negative for cyanosis, clubbing, or pitting edema. NEUROLOGIC: Mental status: The patient is alert and oriented x 3. The speech is fluent. There is no language dysfunction. Memory, judgment, and abstract thinking are fair. The patient denies hallucination or delusion. CRANIAL NERVES: Visual peters are full. The pupils are reactive to light and accommodation. Extraocular movements are intact. There is no nystagmus. There is no facial motor or sensory deficit. Hearing is intact bilaterally. The palate elevates symmetrically. Sternocleidomastoid muscles are powerful bilaterally. The patient shrugs his shoulders symmetrically ____ 4/5 in the left upper ____ secondary to old stroke. Sensory examination revealed diminished pinprick and light touch senses ____ both distal upper and lower extremities. Deep tendon reflexes ____. LABAROTORY DATA: ____ revealed white blood cells ____, hemoglobin 13.7, hematocrit ____ sodium of 134, potassium 4, chloride 107, CO2 of 30, BUN 10, creatinine 0.8, glucose 77, calcium is 9.2. Liver enzymes are normal and troponin level is less than ____ is normal at 76. Urinalysis is negative for urinary tract infections and Dilantin level ____. DIAGNOSTIC DATA: Nonenhanced head CT scan revealed evidence of an old large right MCA infarct and CT of the cervical spine revealed anterior fusion of C5-C7 with mild grade 1 anterolisthesis of C2, C3. Chest x-ray revealed no evidence of ____. IMPRESSION: 1. Breakthrough ____ generalized tonic-clonic seizure. 2. Multiple medical problems include hypertension ____ secondary to old stroke ____ GERD and history of seizure disorder. 3. Multiple psychiatric problems include anxiety and depression. ____ home medications and the current management initiated by ____. 4. The patient should not drive for 6 months in [place] and 1 year in [place]. Raimundo HERNANDEZ MD DR: ALVARO/yas JOB#: [id number] / [id number]
[2017-09-24 10:41] VITALS: BP 138/66
[2017-09-24] MEDS: WARFARIN 5 MG TABLET. PO SCH (16:27)
[2017-09-24 16:41] VITALS: BP 170/78
--- NOTE | 2017-09-24 18:32 | PDOC ---
Exam Note: Rocky Note: Please also refer to the separate dictated note~for this date of service dictated separately.~Patient seen individually. Discussed the patient with Nursing staff reviewed the chart.~Reviewed interim history and current functioning. Reviewed vital signs,~Labs/ Radiology~and current medications noted below. Continue current treatment with the changes noted in the dictated addendum note Assessment: Vital Signs: Vital Signs Date Time Temp Pulse Resp B/P (MAP) Pulse Ox O2 Delivery O2 Flow Rate FiO2 09/24/17 16:41 98.3 63 20 170/78 (108) 96 Room Air 09/24/17 08:00 2.0 I&O Intake and Output 09/24/17 07:00 Intake Total 2000 ml Output Total 303 ml Balance 1697 ml Intake Oral 2000 ml Output Urine Total 303 ml # Voids 1 Labs: Laboratory Tests Test 09/23/17 20:36 09/24/17 07:05 09/24/17 11:50 09/24/17 16:34 Glucose (Fingerstick) 85 mg/dL (70-99) 79 mg/dL (70-99) White Blood Count 7.1 x10^3/uL (4.0-11.0) Red Blood Count 4.35 x10^6/uL (4.30-5.70) Hemoglobin 13.2 g/dL (13.0-17.5) Hematocrit 39.7 % (39.0-53.0) Mean Corpuscular Volume 91 fL (79-100) Mean Corpuscular Hemoglobin 30 pg (25-35) Mean Corpuscular Hemoglobin Concent 33 g/dL (31-37) Red Cell Distribution Width 13.8 % (11.5-14.5) Platelet Count 262 x10^3/uL (140-400) Neutrophils (%) (Auto) 52 % (31-73) Lymphocytes (%) (Auto) 35 % (24-48) Monocytes (%) (Auto) 9 % (0-9) Eosinophils (%) (Auto) 3 % (0-3) Basophils (%) (Auto) 2 % (0-3) Neutrophils # (Auto) 3.7 x10^3uL (1.8-7.7) Lymphocytes # (Auto) 2.5 x10^3/uL (1.0-4.8) Monocytes # (Auto) 0.6 x10^3/uL (0.0-1.1) Eosinophils # (Auto) 0.2 x10^3/uL (0.0-0.7) Basophils # (Auto) 0.1 x10^3/uL (0.0-0.2) Sodium Level 140 mmol/L (136-145) Potassium Level 4.8 mmol/L (3.5-5.1) Chloride Level 105 mmol/L (98-107) Carbon Dioxide Level 28 mmol/L (21-32) Anion Gap 7 (6-14) Blood Urea Nitrogen 11 mg/dL (8-26) Creatinine 0.8 mg/dL (0.7-1.3) Estimated GFR (Cockcroft-Gault) 98.9 BUN/Creatinine Ratio 14 (6-20) Glucose Level 101 mg/dL (70-99) H Calcium Level 8.9 mg/dL (8.5-10.1) Total Bilirubin 0.3 mg/dL (0.2-1.0) Aspartate Amino Transferase (AST) 24 U/L (15-37) Alanine Aminotransferase (ALT) 22 U/L (16-63) Alkaline Phosphatase 117 U/L (46-116) H Total Protein 7.1 g/dL (6.4-8.2) Albumin 3.3 g/dL (3.4-5.0) L Albumin/Globulin Ratio 0.9 (1.0-1.7) L Phenytoin (Dilantin) Level 27.5 mcg/mL (10.0-20.0) H Phenytoin Last Dose Date 09/23/2017 Phenytoin Last Dose Time 2100 Prothrombin Time 10.9 SEC (9.4-11.4) Prothrombin Time INR 1.1 (0.9-1.1) Current Medications: Meds: Current Medications Phenytoin Sodium (Dilantin) 600 mg 1X ONCE PO Last administered on 09/23/17at 01:11; Start 09/23/17 at 00:00; Stop 09/23/17 at 00:01; Status DC Lorazepam (Ativan) 2 mg 1X ONCE PO Last administered on 09/23/17at 01:11; Start 09/23/17 at 00:00; Stop 09/23/17 at 00:01; Status DC Multivitamins/ Minerals 10 ml/ Folic Acid 1 mg/ Thiamine HCl 100 mg/Sodium Chloride 1,011.1 ml @ 1,000 mls/ hr 1X ONCE IV Last administered on at 01:45; Start 09/23/17 at 00:00; Stop 09/23/17 at 01:00; Status DC Thiamine HCl 200 mg STK-MED ONCE IV ; Start 09/23/17 at 01:35; Stop 09/23/17 at 01:36; Status DC Multivitamins/ Minerals (Infuvite Adult) 10 ml STK-MED ONCE IV ; Start 09/23/17 at 01:36; Stop 09/23/17 at 01:37; Status DC Folic Acid 5 mg STK-MED ONCE IV ; Start 09/23/17 at 01:36; Stop 09/23/17 at 01: 37; Status DC Fosphenytoin Sodium 2000 mg/ Sodium Chloride 140 ml @ 200 mls/hr 1X ONCE IV Last administered on 09/23/17at 03:00; Start 09/23/17 at 02:30; Stop 09/23/17 at 03:11; Status DC Lorazepam (Ativan) 2 mg STK-MED ONCE .ROUTE ; Start 09/23/17 at 02:07; Stop at 02:08; Status DC Lorazepam (Ativan) 2 mg 1X ONCE IV ; Start 09/23/17 at 02:10; Stop 09/23/17 at 02:25; Status DC Ondansetron HCl (Zofran) 4 mg PRN Q4HRS PRN IV NAUSEA/VOMITING; Start 09/23/17 at 02:15; Stop 09/24/17 at 02:14; Status DC Phenytoin Sodium (Dilantin) 300 mg DAILY PO Last administered on 09/23/17at 08: 37; Start 09/23/17 at 09:00; Stop 09/23/17 at 11:05; Status DC Lorazepam (Ativan) 2 mg 1X PRN PRN IV seizure Last administered on 09/23/17at 02 :10; Start 09/23/17 at 02:15 Sodium Chloride 100 ml @ As Directed STK-MED ONCE .ROUTE ; Start 09/23/17 at 02 :18; Stop 09/23/17 at 02:19; Status DC Fosphenytoin Sodium (Cerebyx) 500 mg STK-MED ONCE IV ; Start 09/23/17 at 02:18; Stop 09/23/17 at 02:19; Status DC Multivitamins/ Minerals (Infuvite Adult) 10 ml STK-MED ONCE IV ; Start 09/23/17 at 02:21; Stop 09/23/17 at 02:22; Status DC Oxycodone/ Acetaminophen (Percocet 5/325) 1 tab STK-MED ONCE .ROUTE ; Start at 03:18; Stop 09/23/17 at 03:19; Status DC Oxycodone/ Acetaminophen (Percocet 5/325) 2 tab 1X ONCE PO Last administered on 09/23/17at 03:21; Start 09/23/17 at 03:30; Stop 09/23/17 at 03:31; Status DC Alprazolam (Xanax) 0.5 mg Q12HR PRN PO ANXIETY / AGITATION Last administered on 09/24/17at 09:59; Start 09/23/17 at 11:00 Amitriptyline HCl (Elavil) 25 mg HS PO Last administered on 09/23/17at 20:42; Start 09/23/17 at 21:00 Duloxetine HCl (Cymbalta) 60 mg DAILY PO Last administered on 09/24/17at 08:24; Start 09/23/17 at 11:00 Folic Acid (Folic Acid) 1 mg DAILY PO Last administered on 09/24/17at 08:23; Start 09/23/17 at 11:00 Gabapentin (Neurontin) 300 mg BID PO Last administered on 09/24/17at 08:23; Start 09/23/17 at 11:00 Hydralazine HCl (Apresoline) 10 mg TID PO Last administered on 09/24/17at 14:04 ; Start 09/23/17 at 11:00 Levetiracetam (Keppra) 500 mg BID PO ; Start 09/23/17 at 11:00; Stop 09/23/17 at 11:10; Status DC Lisinopril (Prinivil) 10 mg DAILY PO Last administered on 09/24/17at 08:23; Start 09/23/17 at 11:00 Metoclopramide HCl (Reglan) 10 mg Q8HRS PRN PO Crohns; Start 09/23/17 at 11:00 Morphine Sulfate (Morphine Ir) 15 mg Q8HRS PRN PO BREAKTHROUGH PAIN Last administered on 09/24/17at 16:28; Start 09/23/17 at 11:00 Morphine Sulfate (Ms Contin) 60 mg BID PO Last administered on 09/24/17at 08:24 ; Start 09/23/17 at 11:00 Phenytoin Sodium (Dilantin) 300 mg BID PO ; Start 09/23/17 at 11:00; Stop at 11:06; Status DC Pregabalin (Lyrica) 150 mg TID PO Last administered on 09/24/17at 14:03; Start 09/23/17 at 11:00 Temazepam (Restoril) 30 mg HS PO Last administered on 09/23/17at 20:40; Start at 21:00 Warfarin Sodium (Coumadin) 5 mg DAILY16 PO Last administered on 09/24/17at 16:27 ; Start 09/23/17 at 16:00 Atorvastatin Calcium (Lipitor) 40 mg QHS PO Last administered on 09/23/17at 20: 41; Start 09/23/17 at 21:00 Warfarin Sodium (Coumadin Per Physician) 1 each PRN DAILY PRN [facility] SEE COMMENTS; Start 09/23/17 at 11:15; Stop 09/24/17 at 16:07; Status DC Phenytoin Sodium (Dilantin) 300 mg BID PO Last administered on 09/23/17at 20:42 ; Start 09/23/17 at 21:00; Stop 09/24/17 at 09:42; Status DC Levetiracetam (Keppra) 500 mg BID PO Last administered on 09/24/17at 08:24; Start 09/23/17 at 11:00 Phenytoin Sodium (Dilantin) 300 mg HS PO ; Start 09/25/17 at 21:00 Warfarin Sodium (Coumadin Per Pharmacy) 1 each PRN DAILY PRN [facility] SEE COMMENTS; Start 09/24/17 at 16:00 Active Scripts Active Zofran (Ondansetron Hcl) 4 Mg Tablet 1 Tab PO PRN Q6HRS PRN Tylenol With Codeine #3 Tablet (Acetaminophen With Codeine) 1 Each Tablet 1 Tab PO Q6HRS PRN Reported Oxycodone Hcl 10 Mg Tablet 10 Mg PO PRN Q6HRS PRN last dose 2am next dose as needed TIME: NEXT DOSE DUE: DATE: TIME: Alprazolam 1 Mg Tablet 1 Mg PO PRN Q6HRS PRN last dose 5am next dose 11am TIME: NEXT DOSE DUE: DATE: TIME: Symbicort 80-4.5 Mcg Inhaler (Budesonide/Formoterol Fumarate) 10.2 Gm Hfa.aer.ad 2 Puff IH BID last dose this morning next dose tonight TIME: NEXT DOSE DUE: DATE: TIME: Alprazolam 0.5 Mg Tablet 0.5 Mg PO Q12HR PRN took 1mg at 5am this morning TIME: NEXT DOSE DUE: DATE: TIME: Levetiracetam 250 Mg Tablet 500 Mg PO BID last dose this morning next dose tonight TIME: NEXT DOSE DUE: DATE: TIME: Metoclopramide Hcl 10 Mg Tablet 10 Mg PO Q8HRS PRN may resume as needed DATE: TIME: NEXT DOSE DUE: DATE: TIME: Hydralazine Hcl 10 Mg Tablet 10 Mg PO TID last dose this morning next dose this afternoon TIME: NEXT DOSE DUE: DATE: TIME: Atorvastatin Calcium 40 Mg Tablet 40 Mg PO HS last dose last night next dose tonight TIME: NEXT DOSE DUE: DATE: TIME: Duloxetine Hcl 60 Mg Capsule.dr 60 Mg PO DAILY last dose this morning next dose tomorrow TIME: NEXT DOSE DUE: DATE: TIME: Morphine Sulfate Er (Morphine Sulfate) 60 Mg Tablet.er 60 Mg PO BID last dose this morning next dose tonight TIME: NEXT DOSE DUE: DATE: TIME: Morphine Sulfate 15 Mg Tablet 15 Mg PO Q8HRS PRN last dose 5am next dose 1pm TIME: NEXT DOSE DUE: DATE: TIME: Temazepam 30 Mg Capsule 30 Mg PO HS last dose last night next dose tonight TIME: NEXT DOSE DUE: DATE: TIME: Lisinopril 10 Mg Tablet 10 Mg PO DAILY last dose this morning next dose tomorrow Omeprazole 20 Mg Capsule.dr 20 Mg PO DAILY last dose this morning next dose tomorrow TIME: NEXT DOSE DUE: DATE: TIME: Gabapentin 300 Mg Capsule 300 Mg PO BID last dose this morning next dose tonight TIME: NEXT DOSE DUE: DATE: TIME: Lyrica (Pregabalin) 150 Mg Capsule 150 Mg PO TID last dose this morning next dose this afternoon NEXT DOSE DUE: DATE: TIME: Amitriptyline Hcl 25 Mg Tablet 25 Mg PO HS last dose last night next dose tonight TIME: NEXT DOSE DUE: DATE: TIME: Folic Acid 1 Mg Tablet 1 Mg PO DAILY last dose this morning next dose tomorrow TIME: NEXT DOSE DUE: DATE: TIME: Warfarin Sodium 5 Mg Tablet 5 Mg PO DAILY08 last dose yesterday evening next dose this evening TIME: NEXT DOSE DUE: DATE: TIME: Dilantin (Phenytoin Sodium Extended) 100 Mg Capsule 300 Mg PO BID last dose this morning next dose tonight TIME: NEXT DOSE DUE: DATE: TIME: I have reviewed the current psychotropics carefully including drug interactions. Risk benefit ratio favors no change other than as noted in my dictated progress note. Diagnosis: Problems: (1) Major depressive disorder, recurrent episode (2) Anxiety disorder (3) Seizure disorder AIDEN QUIROZ MD Sep 24, 2017 18:32
[2017-09-24 19:42] VITALS: BP 152/107
[2017-09-24] MEDS: AMITRIPTYLINE HCL 25 MG TABLET PO SCH (20:27)
[2017-09-24] MEDS: ATORVASTATIN CALCIUM 20 MG TABLET PO SCH (20:27)
[2017-09-24] MEDS: TEMAZEPAM 30 MG CAPSULE PO SCH (20:28)
--- NOTE | 2017-09-24 23:27 | PN ---
DATE: SUBJECTIVE: The patient complains of dizziness and unsteadiness. He denies any other medical or neurological complaints. His Dilantin level today was high at 27.5. The patient received 2 doses of 300 mg of phenytoin yesterday because his Dilantin level was severely subtherapeutic at 3.6. The patient was not given the morning dose. He has not had any recurrent seizures. OBJECTIVE: GENERAL: Well-developed and well-nourished white male, not in acute distress. VITAL SIGNS: Blood pressure 112/64, respiratory rate is 17, pulse is 81, oxygen saturation 94% and temperature 97.4. HEENT: Normocephalic, atraumatic, otherwise unremarkable. NECK: Supple. Negative for carotid bruit, lymphadenopathy or thyromegaly. LUNGS: Clear to A and P. CARDIOVASCULAR: Regular rate and rhythm, normal S1, S2. ABDOMEN: Soft. Bowel sounds positive. EXTREMITIES: Negative for cyanosis, clubbing or pitting edema. NEUROLOGICAL EXAM: Mental Status: The patient is alert and oriented x2. Speech is fluent. There is no language dysfunction. Denies hallucination or delusion. Cranial nerves are intact. No nystagmus. Motor examination revealed mild left-sided weakness, residual from previous stroke. Sensory examination revealed diminished pinprick and light touch senses in patchy distributions in both lower extremities. Deep tendon reflexes were symmetric and hypoactive with absent Achilles responses. Gait: The patient has unsteady stance. He uses a walker for ambulation. LABORATORY DATA: CBC revealed white blood cells of 7100, hemoglobin 13.2, hematocrit 39.7, platelet count 262,000. Chemistry revealed sodium 140, potassium 4.8, chloride 105, CO2 of 28, BUN 11, creatinine 0.8, glucose is 101. Calcium is 8.9. IMPRESSION: 1. Breakthrough seizure. His Dilantin today is high at 27.5 and no recurrence of seizure. The patient has some side effects of elevated Dilantin as unsteady stance and dizziness. 2. Multiple medical problems include chronic low back pain, coronary artery disease, GERD, hypertension, hyperlipidemia, and seizure disorder. RECOMMENDATIONS: We will continue with current management initiated by Dr. Kelley. We will hold on Dilantin and check Dilantin level tomorrow morning and adjust his medications accordingly. M Josue HERNANDEZ MD DR: Corinne JOB#: [id number] / [id number]
[2017-09-24 23:32] VITALS: BP 136/81
--- NOTE | 2017-09-25 03:54 | PN ---
DATE: 09/24/2017 CURRENT PROBLEMS: Include: 1. Dilantin toxicity. 2. Fall risk. 3. Noncompliant with medications. 4. Seizure disorder. 5. TIA. 6. CVA with left-sided hemiparesis. 7. Type 2 diabetes. 8. Chronic pain. 9. Inappropriate behavior toward the nursing staff. SUBJECTIVE: Neurology and Psychiatry has been consulted and Dr. Benitez feels he has major depressive disorder; anxiety disorder, cognitive disorder. The patient was seen in his room and he seems to be doing okay. His Dilantin level is 27.5, it has gone from 3.6 to 27.5, so that will need to be adjusted. He has had some inappropriate behavior, but is acting fine at the moment. OBJECTIVE: VITAL SIGNS: Blood pressure 138/66, pulse 76, respirations 20, pulse ox 96% on room air. GENERAL: He is alert, cooperative, calm, appropriate. HEENT: Tongue was moist. NECK: Supple. LUNGS: Clear. CARDIOVASCULAR: Regular rhythm and rate. ABDOMEN: Soft, nontender. EXTREMITIES: With slight edema. LABORATORY DATA: WBC has come down to 7.1. PLAN: Get another Dilantin level tomorrow and plan for discharge. GOLDY ROSE DO DR: VINNY/yas JOB#: [id number] / [id number]
[2017-09-25] MEDS: MORPHINE IR 15 MG TABLET PO PRN ×2 (05:01→13:17)
[2017-09-25] MEDS: ALPRAZolam 0.5 MG TABLET PO PRN ×2 (05:23→09:13)
[2017-09-25 05:49] VITALS: BP 196/91
[2017-09-25] MEDS: hydrALAZINE 10 MG TABLET PO SCH (08:12)
[2017-09-25] MEDS: levETIRAcetam 500 MG TABLET PO SCH (08:12)
[2017-09-25] MEDS: FOLIC ACID 1 MG TABLET PO SCH (08:12)
[2017-09-25] MEDS: PREGABALIN 150 MG CAPSULE PO SCH ×2 (08:12→09:13)
[2017-09-25] MEDS: DULoxetine HCL 60 MG CAPSULE.DR PO SCH (08:12)
[2017-09-25] MEDS: LISINOPRIL 10 MG TABLET PO SCH (08:13)
[2017-09-25] MEDS: MORPHINE ER 60 MG TABLET.ER PO SCH (08:13)
[2017-09-25] MEDS: GABAPENTIN 300 MG CAPSULE. PO SCH (08:13)
[2017-09-25] MEDS ORDERED: hydrALAZINE 25 MG TABLET PO ONE (09:20)
[2017-09-25] MEDS ORDERED: ACETAMINOPHEN/CODEINE 300/30MG TABLET PO PRN (09:30)
[2017-09-25] MEDS ORDERED: MORP60TA PO (09:35)
[2017-09-25] MEDS ORDERED: HYDR-2867 PO (09:35)
[2017-09-25] MEDS ORDERED: WARF5TAB7 PO (09:35)
[2017-09-25] MEDS ORDERED: PHEN100C PO (09:35)
[2017-09-25 10:23] LABS: PHENY 17.5 mcg/mL (10.0-20.0)
[2017-09-25 10:25] LABS: ALBUMIN 2.7 g/dL (3.4-5.0); ALBUMIN/GLOBULIN RATIO 0.6 (1.0-1.7); CALCIUM 8.6 mg/dL (8.5-10.1); MAGNESIUM 2.3 mg/dL (1.8-2.4); POTASSIUM 3.8 mmol/L (3.5-5.1); TOTAL BILIRUBIN 0.1 mg/dL (0.2-1.0); TOTAL PROTEIN 6.9 g/dL (6.4-8.2)
[2017-09-25 10:42] LABS: CREATININE 0.6 mg/dL (0.7-1.3); GFR 137.9
[2017-09-25 11:20] VITALS: BP 116/71
[2017-09-25] MEDS ORDERED: TEMAZEPAM 15 MG CAPSULE PO PRN (12:00)
[2017-09-25] MEDS ORDERED: hydrALAZINE 10 MG TABLET PO SCH (14:00)
[2017-09-25 15:16] VITALS: BP 147/73
[2017-09-25 15:36] VITALS: BP 147/73
--- NOTE | 2017-09-25 16:46 | PDOC3 ---
Discharge Summary Visit Information Date of Admission: Sep 23, 2017 Date of Discharge: Sep 25, 2017 Final Diagnosis Problems Medical Problems: (1) Seizure disorder Status: Acute ENT PROBLEMS: Include: 1. Dilantin toxicity. 2. Fall risk. 3. Noncompliant with medications. 4. Seizure disorder. 5. TIA. 6. CVA with left-sided hemiparesis. 7. Type 2 diabetes. 8. SUBTHERAPEUTIC DILANTIN 9. POLYPHARMACY 10 CHRONIC PAIN Problems: Brief Hospital Course Allergies Allergies Coded Allergies Type Severity Reaction Last Updated Verified cyclobenzaprine Allergy Intermediate 02/28/15 No naproxen Allergy Intermediate 02/28/15 No prednisone Allergy Intermediate PSYCHOSIS 02/28/15 No I S O L A T I O N *CONTACT* Allergy Unknown 10/26/16 Yes Vital Signs Vital Signs Date Time Temp Pulse Resp B/P (MAP) Pulse Ox O2 Delivery O2 Flow Rate FiO2 09/25/17 15:36 82 147/73 09/25/17 15:16 97.3 20 95 Room Air 09/24/17 08:00 2.0 Lab Results Laboratory Tests Test 09/23/17 20:36 09/24/17 07:05 09/24/17 09:45 09/24/17 11:50 Glucose (Fingerstick) 85 mg/dL (70-99) White Blood Count 7.1 x10^3/uL (4.0-11.0) Red Blood Count 4.35 x10^6/uL (4.30-5.70) Hemoglobin 13.2 g/dL (13.0-17.5) Hematocrit 39.7 % (39.0-53.0) Mean Corpuscular Volume 91 fL (79-100) Mean Corpuscular Hemoglobin 30 pg (25-35) Mean Corpuscular Hemoglobin Concent 33 g/dL (31-37) Red Cell Distribution Width 13.8 % (11.5-14.5) Platelet Count 262 x10^3/uL (140-400) Neutrophils (%) (Auto) 52 % (31-73) Lymphocytes (%) (Auto) 35 % (24-48) Monocytes (%) (Auto) 9 % (0-9) Eosinophils (%) (Auto) 3 % (0-3) Basophils (%) (Auto) 2 % (0-3) Neutrophils # (Auto) 3.7 x10^3uL (1.8-7.7) Lymphocytes # (Auto) 2.5 x10^3/uL (1.0-4.8) Monocytes # (Auto) 0.6 x10^3/uL (0.0-1.1) Eosinophils # (Auto) 0.2 x10^3/uL (0.0-0.7) Basophils # (Auto) 0.1 x10^3/uL (0.0-0.2) Sodium Level 140 mmol/L (136-145) Potassium Level 4.8 mmol/L (3.5-5.1) Chloride Level 105 mmol/L (98-107) Carbon Dioxide Level 28 mmol/L (21-32) Anion Gap 7 (6-14) Blood Urea Nitrogen 11 mg/dL (8-26) Creatinine 0.8 mg/dL (0.7-1.3) Estimated GFR (Cockcroft-Gault) 98.9 BUN/Creatinine Ratio 14 (6-20) Glucose Level 101 mg/dL (70-99) Calcium Level 8.9 mg/dL (8.5-10.1) Total Bilirubin 0.3 mg/dL (0.2-1.0) Aspartate Amino Transf (AST/SGOT) 24 U/L (15-37) Alanine Aminotransferase (ALT/SGPT) 22 U/L (16-63) Alkaline Phosphatase 117 U/L (46-116) Total Protein 7.1 g/dL (6.4-8.2) Albumin 3.3 g/dL (3.4-5.0) Albumin/Globulin Ratio 0.9 (1.0-1.7) Phenytoin (Dilantin) Level 27.5 mcg/mL (10.0-20.0) Phenytoin Last Dose Date 09/23/2017 Phenytoin Last Dose Time 2100 Nasal Screen MRSA (PCR) Positive (Negative) Prothrombin Time 10.9 SEC (9.4-11.4) Prothromb Time International Ratio 1.1 (0.9-1.1) Test 09/24/17 16:34 09/24/17 19:42 09/25/17 07:21 09/25/17 09:59 Glucose (Fingerstick) 79 mg/dL (70-99) 101 mg/dL (70-99) 181 mg/dL (70-99) Prothrombin Time 15.6 SEC (9.4-11.4) Prothromb Time International Ratio 1.5 (0.9-1.1) Sodium Level 136 mmol/L (136-145) Potassium Level 3.8 mmol/L (3.5-5.1) Chloride Level 102 mmol/L (98-107) Carbon Dioxide Level 26 mmol/L (21-32) Anion Gap 8 (6-14) Blood Urea Nitrogen 10 mg/dL (8-26) Creatinine 0.6 mg/dL (0.7-1.3) Estimated GFR (Cockcroft-Gault) 137.9 BUN/Creatinine Ratio 17 (6-20) Glucose Level 103 mg/dL (70-99) Calcium Level 8.6 mg/dL (8.5-10.1) Magnesium Level 2.3 mg/dL (1.8-2.4) Total Bilirubin 0.1 mg/dL (0.2-1.0) Aspartate Amino Transf (AST/SGOT) 22 U/L (15-37) Alanine Aminotransferase (ALT/SGPT) 19 U/L (16-63) Alkaline Phosphatase 117 U/L (46-116) Total Protein 6.9 g/dL (6.4-8.2) Albumin 2.7 g/dL (3.4-5.0) Albumin/Globulin Ratio 0.6 (1.0-1.7) Phenytoin (Dilantin) Level 17.5 mcg/mL (10.0-20.0) Phenytoin Last Dose Date 09/23/17 Phenytoin Last Dose Time 2041 Test 09/25/17 11:46 Glucose (Fingerstick) 87 mg/dL (70-99) Brief Hospital Course Mr. Monge is a 57 old [sex] who presented with [REPORTED SEIZURE. IS ON NUMEROUS MEDICATIONS BUT IS NOT TAKING THEM CORRECTLY. HE WAS STARTED BACK ON DILANTIN AND HIS LEVEL BECAME TO HIGH. THE DOSE WAS ADJUSTED. HE WAS INSTRUCTED TO OBTAIN HIS NARCOTIC PRESCRIPTIONS FROM DR. BURCIAGA AND IT IS UNCLEAR TO WHAT HE IS ACTUALLY AND SEVERAL OF THES MEDS HAVE NOT BEEN REFILLED FOR AT LEAST 3 MONTHS. HIS BLOOD PRESSURE WAS ELEVATED AND HIS HYDRALAZINE WAS ADJUSTED. Discharge Information Condition at Discharge: Improved Disposition/Orders: D/C to Home w/ HH Dischare Medications Current Medications Phenytoin Sodium (Dilantin) 600 mg 1X ONCE PO Last administered on 09/23/17at 01:11; Start 09/23/17 at 00:00; Stop 09/23/17 at 00:01; Status DC Lorazepam (Ativan) 2 mg 1X ONCE PO Last administered on 09/23/17at 01:11; Start 09/23/17 at 00:00; Stop 09/23/17 at 00:01; Status DC Multivitamins/ Minerals 10 ml/ Folic Acid 1 mg/ Thiamine HCl 100 mg/Sodium Chloride 1,011.1 ml @ 1,000 mls/ hr 1X ONCE IV Last administered on at 01:45; Start 09/23/17 at 00:00; Stop 09/23/17 at 01:00; Status DC Thiamine HCl 200 mg STK-MED ONCE IV ; Start 09/23/17 at 01:35; Stop 09/23/17 at 01:36; Status DC Multivitamins/ Minerals (Infuvite Adult) 10 ml STK-MED ONCE IV ; Start 09/23/17 at 01:36; Stop 09/23/17 at 01:37; Status DC Folic Acid 5 mg STK-MED ONCE IV ; Start 09/23/17 at 01:36; Stop 09/23/17 at 01: 37; Status DC Fosphenytoin Sodium 2000 mg/ Sodium Chloride 140 ml @ 200 mls/hr 1X ONCE IV Last administered on 09/23/17at 03:00; Start 09/23/17 at 02:30; Stop 09/23/17 at 03:11; Status DC Lorazepam (Ativan) 2 mg STK-MED ONCE .ROUTE ; Start 09/23/17 at 02:07; Stop at 02:08; Status DC Lorazepam (Ativan) 2 mg 1X ONCE IV ; Start 09/23/17 at 02:10; Stop 09/23/17 at 02:25; Status DC Ondansetron HCl (Zofran) 4 mg PRN Q4HRS PRN IV NAUSEA/VOMITING; Start 09/23/17 at 02:15; Stop 09/24/17 at 02:14; Status DC Phenytoin Sodium (Dilantin) 300 mg DAILY PO Last administered on 09/23/17at 08: 37; Start 09/23/17 at 09:00; Stop 09/23/17 at 11:05; Status DC Lorazepam (Ativan) 2 mg 1X PRN PRN IV seizure Last administered on 09/23/17at 02 :10; Start 09/23/17 at 02:15 Sodium Chloride 100 ml @ As Directed STK-MED ONCE .ROUTE ; Start 09/23/17 at 02 :18; Stop 09/23/17 at 02:19; Status DC Fosphenytoin Sodium (Cerebyx) 500 mg STK-MED ONCE IV ; Start 09/23/17 at 02:18; Stop 09/23/17 at 02:19; Status DC Multivitamins/ Minerals (Infuvite Adult) 10 ml STK-MED ONCE IV ; Start 09/23/17 at 02:21; Stop 09/23/17 at 02:22; Status DC Oxycodone/ Acetaminophen (Percocet 5/325) 1 tab STK-MED ONCE .ROUTE ; Start at 03:18; Stop 09/23/17 at 03:19; Status DC Oxycodone/ Acetaminophen (Percocet 5/325) 2 tab 1X ONCE PO Last administered on 09/23/17at 03:21; Start 09/23/17 at 03:30; Stop 09/23/17 at 03:31; Status DC Alprazolam (Xanax) 0.5 mg Q12HR PRN PO ANXIETY / AGITATION Last administered on 09/25/17at 09:13; Start 09/23/17 at 11:00 Amitriptyline HCl (Elavil) 25 mg HS PO Last administered on 09/24/17at 20:27; Start 09/23/17 at 21:00 Duloxetine HCl (Cymbalta) 60 mg DAILY PO Last administered on 09/25/17at 08:12; Start 09/23/17 at 11:00 Folic Acid (Folic Acid) 1 mg DAILY PO Last administered on 09/25/17at 08:12; Start 09/23/17 at 11:00 Gabapentin (Neurontin) 300 mg BID PO Last administered on 09/25/17at 08:13; Start 09/23/17 at 11:00 Hydralazine HCl (Apresoline) 10 mg TID PO Last administered on 09/25/17at 08:12 ; Start 09/23/17 at 11:00; Stop 09/25/17 at 09:17; Status DC Levetiracetam (Keppra) 500 mg BID PO ; Start 09/23/17 at 11:00; Stop 09/23/17 at 11:10; Status DC Lisinopril (Prinivil) 10 mg DAILY PO Last administered on 09/25/17at 08:13; Start 09/23/17 at 11:00 Metoclopramide HCl (Reglan) 10 mg Q8HRS PRN PO Crohns; Start 09/23/17 at 11:00 Morphine Sulfate (Morphine Ir) 15 mg Q8HRS PRN PO BREAKTHROUGH PAIN Last administered on 09/25/17at 13:17; Start 09/23/17 at 11:00 Morphine Sulfate (Ms Contin) 60 mg BID PO Last administered on 09/25/17at 08:13 ; Start 09/23/17 at 11:00 Phenytoin Sodium (Dilantin) 300 mg BID PO ; Start 09/23/17 at 11:00; Stop at 11:06; Status DC Pregabalin (Lyrica) 150 mg TID PO Last administered on 09/25/17at 09:13; Start 09/23/17 at 11:00 Temazepam (Restoril) 30 mg HS PO Last administered on 09/24/17at 20:28; Start at 21:00; Stop 09/25/17 at 11:53; Status DC Warfarin Sodium (Coumadin) 5 mg DAILY16 PO Last administered on 09/24/17at 16:27 ; Start 09/23/17 at 16:00 Atorvastatin Calcium (Lipitor) 40 mg QHS PO Last administered on 09/24/17at 20: 27; Start 09/23/17 at 21:00 Warfarin Sodium (Coumadin Per Physician) 1 each PRN DAILY PRN MC SEE COMMENTS; Start 09/23/17 at 11:15; Stop 09/24/17 at 16:07; Status DC Phenytoin Sodium (Dilantin) 300 mg BID PO Last administered on 09/23/17at 20:42 ; Start 09/23/17 at 21:00; Stop 09/24/17 at 09:42; Status DC Levetiracetam (Keppra) 500 mg BID PO Last administered on 09/25/17at 08:12; Start 09/23/17 at 11:00 Phenytoin Sodium (Dilantin) 300 mg HS PO ; Start 09/25/17 at 21:00 Warfarin Sodium (Coumadin Per Pharmacy) 1 each PRN DAILY PRN MC SEE COMMENTS; Start 09/24/17 at 16:00 Hydralazine HCl (Apresoline) 25 mg TID PO Last administered on 09/25/17at 15:36 ; Start 09/25/17 at 14:00 Hydralazine HCl (Apresoline) 25 mg 1X ONCE PO ; Start 09/25/17 at 09:20; Stop 09/25/17 at 09:24; Status DC Acetaminophen/ Codeine Phosphate (Tylenol #3) 1 tab PRN Q6HRS PRN PO PAIN Last administered on 09/25/17at 10:34; Start 09/25/17 at 09:30 Temazepam (Restoril) 15 mg PRN QHS PRN PO INSOMNIA MAY REPEAT IN 1HR; Start at 12:00 Active Scripts Active Hydralazine Hcl 10 Mg Tablet 25 Mg PO TID 60 Days Morphine Sulfate Er (Morphine Sulfate) 60 Mg Tablet.er 30 Mg PO BID 30 Days last dose this morning next dose tonight TIME: NEXT DOSE DUE: DATE: TIME: Warfarin Sodium 5 Mg Tablet 7.5 Mg PO DAILY08 30 Days last dose yesterday evening next dose this evening TIME: NEXT DOSE DUE: DATE: TIME: Dilantin (Phenytoin Sodium Extended) 100 Mg Capsule 300 Mg PO HS 60 Days last dose this morning next dose tonight TIME: NEXT DOSE DUE: DATE: TIME: Zofran (Ondansetron Hcl) 4 Mg Tablet 1 Tab PO PRN Q6HRS PRN Reported Symbicort 80-4.5 Mcg Inhaler (Budesonide/Formoterol Fumarate) 10.2 Gm Hfa.aer.ad 2 Puff IH BID LAST DOSE TAKEN: DATE:TODAY TIME:AM NEXT DOSE DUE: DATE:TODAY TIME:PM Alprazolam 0.5 Mg Tablet 0.5 Mg PO Q12HR PRN LAST DOSE GIVEN: DATE:TODAY TIME:9:15 AM NEXT DOSE DUE: DATE:TONIGHT TIME:9:15 PM IF AND WHEN NEEDED Levetiracetam 250 Mg Tablet 500 Mg PO BID LAST DOSE TAKEN: DATE:TODAY TIME:AM NEXT DOSE DUE: DATE:TODAY TIME:PM Metoclopramide Hcl 10 Mg Tablet 10 Mg PO Q8HRS PRN NOT GIVEN IN HOSPITAL NEXT DOSE DUE: DATE:TODAY TIME:IF AND WHEN NEEDED DATE: TIME: Atorvastatin Calcium 40 Mg Tablet 40 Mg PO HS LAST DOSE TAKEN: DATE: NIGHT TIME:BEDTIME NEXT DOSE DUE: DATE:TONIGHT TIME:BEDTIME Duloxetine Hcl 60 Mg Capsule.dr 60 Mg PO DAILY LAST DOSE TAKEN: DATE:TODAY TIME:AM NEXT DOSE DUE: DATE:TOMORROW TIME:AM Morphine Sulfate 15 Mg Tablet 15 Mg PO Q8HRS PRN LAST DOSE TAKEN: DATE:TODAY TIME:5:00 AM NEXT DOSE DUE: DATE:TODAY TIME:IF AND WHEN NEEDED. Lisinopril 10 Mg Tablet 10 Mg PO DAILY LAST DOSE TAKEN: DATE: TIME:AM NEXT DOSE DUE: DATE:TOMORR TIME:AM Omeprazole 20 Mg Capsule.dr 20 Mg PO DAILY LAST DOSE TAKEN: DATE:TODAY TIME:AM NEXT DOSE DUE: DATE:TOMORROW TIME:AM Gabapentin 300 Mg Capsule 300 Mg PO BID LAST DOSE TAKEN: DATE:TODAY TIME:AM NEXT DOSE DUE: DATE:TODAY TIME:PM Amitriptyline Hcl 25 Mg Tablet 25 Mg PO HS LAST DOSE TAKEN: DATE: YESTER TIME: BEDTIME NEXT DOSE DUE: DATE: TONIGHT TIME: BEDTIME Folic Acid 1 Mg Tablet 1 Mg PO DAILY LAST DOSE TAKEN: DATE:TODAY TIME:AM NEXT DOSE DUE: DATE:TOMORROW TIME:AM GOLDY ROSE DO Sep 25, 2017 16:46
[2017-09-25] MEDS ORDERED: PHENYTOIN SODIUM EXTENDED 100 MG CAPSULE PO SCH (21:00)
--- NOTE | 2017-09-25 21:31 | PN ---
DATE: 09/25/2017 SUBJECTIVE: The patient continues to complain of chronic lower back pain, pain of the knees, more prominent on the left, and pain of the elbows. He has not had any recurrent seizure. He complains of intermittent mild headaches. He denies nausea, vomiting, chest pain, shortness of breath, or palpitations. OBJECTIVE: GENERAL: Moderately obese white male, not in acute distress. VITAL SIGNS: Blood pressure 196/91, respiratory rate 20, pulse 66, temperature 97.1, oxygen saturation 100% on room air. HEENT: Normocephalic, atraumatic, otherwise unremarkable. NECK: Supple. Negative for carotid bruit. No lymphadenopathy or thyromegaly. LUNGS: Clear to A and P. CARDIOVASCULAR: Regular rate and rhythm, normal S1, S2. There is no S3, S4 or murmur. ABDOMEN: Soft. Bowel sounds positive. EXTREMITIES: Negative for cyanosis, clubbing or pitting edema. NEUROLOGICAL EXAM: Mental Status: The patient is alert and oriented to time. The speech is fluent. There is no language dysfunction. Memory, the patient recalls 2/3 immediately and after 1 and 3 minutes. Judgment and abstract thinking are fair. The patient denies hallucination or delusion. Cranial nerves are intact. Cranial nerves are intact. Motor examination: Right upper and lower extremity weakness secondary to old stroke. Sensory examination revealed diminished pinprick and light touch senses in patchy distributions in both lower extremities. Deep tendon reflexes were symmetric with absent Achilles responses. Gait: The patient uses a walker for ambulation. LABORATORY DATA: Dilantin level is pending. IMPRESSION: 1. Breakthrough seizure. However, after giving a loading dose of 600 mg of phenytoin, his Dilantin level was 27.5 on 09/24/2017. Dilantin was held for the whole day. We expected his phenytoin level would be within normal range today. 2. Multiple medical problems including chronic lower back pain, hypertension, hyperlipidemia, coronary artery disease, history of diabetes mellitus and stroke. 3. Possible early dementia and depressions. RECOMMENDATIONS: 1. We will receive phenytoin level when Dilantin level becomes within therapeutic range. We will start the patient on phenytoin assay 100 mg daily. 2. Physical therapy as tolerated. M F. HABIB, MD DR: ALVARO/yas JOB#: [id number] / [id number]
--- NOTE | 2017-09-26 00:32 | PN ---
DATE: 09/24/2017 This is a late entry 09/24/2017 covers elements not covered in my initial note 09/24/2017. I met with the patient in the evening of 09/24/2017. Per nursing report, the patient has been quite sedated, withdrawn much of the day. His Dilantin level was somewhat elevated and may have accounted for this. He had difficulty ambulating as well. Dilantin has since been held, but he is still sedated. I met with him in his room. He is quite tired. Otherwise, he has been demanding, somewhat labile, still depressed. REVIEW OF SYSTEMS: No CV, , pulmonary system symptoms on review. MENTAL STATUS EXAM: Oriented to himself and situation. Speech not very verbal due to his sedation. Abstraction fair, computation impaired, language function intact. Mood and affect still depressed, anxious, but his sedation is probably worsening some of his presentation. LABORATORY DATA: Reviewed. IMPRESSION: Major depressive disorder; anxiety disorder, unspecified seizure disorder. Rest unchanged. PLAN: No change from a psychiatric standpoint. He remains on amitriptyline 25 mg p.o. at bedtime, Xanax p.r.n., Cymbalta 60 mg a day, Neurontin 300 mg twice a day, Restoril 30 mg at bedtime, but given his sedation, we will go ahead and change it to 15 mg p.o. at bedtime p.r.n. insomnia, may repeat x 1. We will make this change and leave the rest unchanged. AIDEN QUIROZ MD DR: IAN/yas JOB#: [id number] / [id number]
== END 2017-09-25 16:30 | disposition home health service (06) | DRG 101 ==
LOC: ER 23:31 → 1 SOUTH 09-23 02:00
PROVIDERS: ADMIT Internal Medicine; ATTEND Internal Medicine
DX: G40.409 Other generalized epilepsy and epileptic syndromes, not intractable, without status epilepticus (principal); E11.649 Type 2 diabetes mellitus with hypoglycemia without coma; F33.9 Major depressive disorder, recurrent, unspecified; I69.354 Hemiplegia and hemiparesis following cerebral infarction affecting left non-dominant side; K50.90 Crohn's disease, unspecified, without complications; D72.829 Elevated white blood cell count, unspecified; E78.00 Pure hypercholesterolemia, unspecified; J45.909 Unspecified asthma, uncomplicated; M19.90 Unspecified osteoarthritis, unspecified site; T42.0X5A Adverse effect of hydantoin derivatives, initial encounter; K21.9 Gastro-esophageal reflux disease without esophagitis; I10 Essential (primary) hypertension; I25.10 Atherosclerotic heart disease of native coronary artery without angina pectoris; G89.4 Chronic pain syndrome; F43.10 Post-traumatic stress disorder, unspecified; E78.5 Hyperlipidemia, unspecified; F41.9 Anxiety disorder, unspecified; M79.7 Fibromyalgia; F09 Unspecified mental disorder due to known physiological condition; F17.220 Nicotine dependence, chewing tobacco, uncomplicated; Z96.652 Presence of left artificial knee joint; Z90.49 Acquired absence of other specified parts of digestive tract; Z91.14 Patient's other noncompliance with medication regimen; Z91.81 History of falling; I25.2 Old myocardial infarction; Z79.01 Long term (current) use of anticoagulants; Z79.899 Other long term (current) drug therapy; Z85.038 Personal history of other malignant neoplasm of large intestine; Z98.1 Arthrodesis status; Z88.8 Allergy status to other drugs, medicaments and biological substances; Z86.718 Personal history of other venous thrombosis and embolism; Y92.89 Other specified places as the place of occurrence of the external cause
CPT/HCPCS: 36415; 70450; 71045; 72125; 80048; 80053; 80076; 80185; 80307; 81001; 82553; 82947; 83735; 83880; 84484; 85007; 85025; 85610; 85730; 87040; 87641; 93005; G0480; J2060; Q2009; G0479; J7030

== ENCOUNTER 2017-10-10 20:35 | Emergency (ER) | payer MEDICARE ==
[~2017-10-10] VITALS: Ht 327.7 cm; Wt 98.0 kg
[2017-10-10 20:35] VITALS: BP 138/74
[2017-10-10 21:52] LABS: ALBUMIN 3.2 g/dL (3.4-5.0); ALBUMIN/GLOBULIN RATIO 0.8 (1.0-1.7); CALCIUM 8.5 mg/dL (8.5-10.1); CREATININE 0.8 mg/dL (0.7-1.3); GFR 98.9; POTASSIUM 3.6 mmol/L (3.5-5.1); TOTAL BILIRUBIN 0.1 mg/dL (0.2-1.0); TOTAL PROTEIN 7.4 g/dL (6.4-8.2)
[2017-10-10 22:38] LABS: BASO # 0.1 x10^3/uL (0.0-0.2); BASO % 1 % (0-3); EOS # 0.3 x10^3/uL (0.0-0.7); EOS % 4 % (0-3); HEMATOCRIT 36.8 % (39.0-53.0); HEMOGLOBIN 12.2 g/dL (13.0-17.5); LYMPH # 2.5 x10^3/uL (1.0-4.8); LYMPH % 32 % (24-48); MEAN CORPUSCULAR HEMOGLOBIN 30 pg (25-35); MEAN CORPUSCULAR HGB CONC 33 g/dL (31-37); MEAN CORPUSCULAR VOLUME 91 fL (79-100); MONO # 0.9 x10^3/uL (0.0-1.1); MONO % 12 % (0-9); NEUT % 51 % (31-73); PLATELET COUNT 178 x10^3/uL (140-400); RED BLOOD COUNT 4.06 x10^6/uL (4.30-5.70); RED CELL DISTRIBUTION WIDTH 13.5 % (11.5-14.5); WHITE BLOOD COUNT 7.8 x10^3/uL (4.0-11.0)
--- NOTE | 2017-10-10 22:44 | PHYS DOC ---
Past History Past Medical History: Anemia, Arthritis, Asthma, Cancer, CVA, Coagulopathy, Depression, Diabetes, GERD, High Cholesterol, Heart Disease, Hypertension, [place], Seizure Past Surgical History: Appendectomy, Cholecystectomy, Knee Replacement Smoking: Cigarettes, Quit Greater Than 1 Year Alcohol Use: None Drug Use: Opiates Adult General Chief Complaint Chief Complaint: SEIZURE HPI HPI 57-year-old male patient with history of absence seizure brought in by EMS from [facility] because of seizures. Patient was discharged from [facility] at [facility] with diagnosis of seizure. Patient state he was his consciousness during episodes of seizure and denies any injury or headache or biting his tongue or losing urine during seizure. Review of Systems Review of Systems Constitutional: Denies fever or chills [] Eyes: Denies change in visual acuity, redness, or eye pain [] HENT: Denies nasal congestion or sore throat [] Respiratory: Denies cough or shortness of breath [] Cardiovascular: No additional information not addressed in HPI [] GI: Denies abdominal pain, nausea, vomiting, bloody stools or diarrhea [] : Denies dysuria or hematuria [] Musculoskeletal: Denies back pain or joint pain [] Integument: Denies rash or skin lesions [] Neurologic: Denies headache, focal weakness or sensory changes [] Endocrine: Denies polyuria or polydipsia [] All other systems were reviewed and found to be within normal limits, except as documented in this note. Allergies Allergies Allergies Coded Allergies Type Severity Reaction Last Updated Verified cyclobenzaprine Allergy Intermediate 02/28/15 No naproxen Allergy Intermediate 02/28/15 No prednisone Allergy Intermediate PSYCHOSIS 02/28/15 No I S O L A T I O N *CONTACT* Allergy Unknown 10/26/16 Yes Physical Exam Physical Exam Constitutional: Well developed, well nourished, no acute distress, non-toxic appearance. [] HENT: Normocephalic, atraumatic, bilateral external ears normal, oropharynx moist, no oral exudates, nose normal. [] Eyes: PERRLA, EOMI, conjunctiva normal, no discharge. [] Neck: Normal range of motion, no tenderness, supple, no stridor. [] Cardiovascular:Heart rate regular rhythm, no murmur [] Lungs & Thorax: Bilateral breath sounds clear to auscultation [] Abdomen: Bowel sounds normal, soft, no tenderness, no masses, no pulsatile masses. [] Skin: Warm, dry, no erythema, no rash. [] Back: No tenderness, no CVA tenderness. [] Extremities: No tenderness, no cyanosis, no clubbing, ROM intact, no edema. [] Neurologic: Alert and oriented X 3, normal motor function, normal sensory function, no focal deficits noted. [] Psychologic: Affect normal, judgement normal, mood normal. [] Current Patient Data Lab Results Laboratory Tests Test 10/10/17 21:10 White Blood Count 7.8 x10^3/uL (4.0-11.0) Red Blood Count 4.06 x10^6/uL (4.30-5.70) L Hemoglobin 12.2 g/dL (13.0-17.5) L Hematocrit 36.8 % (39.0-53.0) L Mean Corpuscular Volume 91 fL (79-100) Mean Corpuscular Hemoglobin 30 pg (25-35) Mean Corpuscular Hemoglobin Concent 33 g/dL (31-37) Red Cell Distribution Width 13.5 % (11.5-14.5) Platelet Count 178 x10^3/uL (140-400) Neutrophils (%) (Auto) 51 % (31-73) Lymphocytes (%) (Auto) 32 % (24-48) Monocytes (%) (Auto) 12 % (0-9) H Eosinophils (%) (Auto) 4 % (0-3) H Basophils (%) (Auto) 1 % (0-3) Neutrophils # (Auto) 4.0 x10^3uL (1.8-7.7) Lymphocytes # (Auto) 2.5 x10^3/uL (1.0-4.8) Monocytes # (Auto) 0.9 x10^3/uL (0.0-1.1) Eosinophils # (Auto) 0.3 x10^3/uL (0.0-0.7) Basophils # (Auto) 0.1 x10^3/uL (0.0-0.2) Sodium Level 140 mmol/L (136-145) Potassium Level 3.6 mmol/L (3.5-5.1) Chloride Level 102 mmol/L (98-107) Carbon Dioxide Level 30 mmol/L (21-32) Anion Gap 8 (6-14) Blood Urea Nitrogen 9 mg/dL (8-26) Creatinine 0.8 mg/dL (0.7-1.3) Estimated GFR (Cockcroft-Gault) 98.9 BUN/Creatinine Ratio 11 (6-20) Glucose Level 113 mg/dL (70-99) H Calcium Level 8.5 mg/dL (8.5-10.1) Total Bilirubin 0.1 mg/dL (0.2-1.0) L Aspartate Amino Transferase (AST) 17 U/L (15-37) Alanine Aminotransferase (ALT) 22 U/L (16-63) Alkaline Phosphatase 105 U/L (46-116) Total Protein 7.4 g/dL (6.4-8.2) Albumin 3.2 g/dL (3.4-5.0) L Albumin/Globulin Ratio 0.8 (1.0-1.7) L EKG EKG [] Radiology/Procedures Radiology/Procedures [] Course & Med Decision Making Course & Med Decision Making Pertinent Labs studies reviewed. (See chart for details) []Evaluation of patient in ER showed 57-year-old male patient with history of seizure and resident of [facility] was discharged from another hospital today with diagnosis of seizure and had episodes of absence seizure at [facility] and sent to ER by ambulance for evaluation. Patient was alert and oriented without any distress. Labs was unremarkable except for mild UTI. Plan discharge patient to [facility] with diagnose of absence seizure and continue home medication. Dragon Disclaimer Dragon Disclaimer This electronic medical record was generated, in whole or in part, using a voice recognition dictation system. Departure Departure: Impression: Primary Impression: Absence seizure Additional Impression: UTI (urinary tract infection) Disposition: 01 HOME, SELF-CARE (correction at 2243) Condition: STABLE Referrals: CORTEZ BURCIAGA (PCP) Patient Instructions: Seizure, Adult, Urinary Tract Infection Additional Instructions: Continue current medication Follow-up with your primary care physician in 2 or 3 days Scripts Sulfamethoxazole/Trimethoprim (BACTRIM DS TABLET) 1 Each Tablet 1 TAB PO BID, #6 TAB Prov: MELO DOMINGUEZ MD 10/10/17 Problem Qualifiers MELO DOMINGUEZ MD Oct 10, 2017 22:43
[2017-10-10 23:23] LABS: BILIRUBIN,URINE NEG (NEG); CLARITY,URINE CLEAR; COLOR,URINE YELLOW; GLUCOSE,URINE NEG (NEG); NITRITE,URINE NEG (NEG); UROBILINOGEN,URINE 0.2 mg/dL (0.2 mg/dL)
[2017-10-10 23:24] LABS: BACTERIA,URINE 0 /HPF (0-FEW); RBC,URINE OCC /HPF (0-2); SQUAMOUS EPITHELIAL CELL,UR FEW /LPF
[2017-10-10] MEDS ORDERED: SULF1TAB24 PO (23:26)
[2017-10-11 13:34] LABS: CARBAM < 0.5 mcg/mL (4.0-12.0)
== END 2017-10-10 23:47 | disposition home or self-care (01) ==
LOC: ER 20:35
DX: G40.89 Other seizures (principal); N39.0 Urinary tract infection, site not specified; K21.9 Gastro-esophageal reflux disease without esophagitis; E11.9 Type 2 diabetes mellitus without complications; E78.00 Pure hypercholesterolemia, unspecified; I11.9 Hypertensive heart disease without heart failure; J45.909 Unspecified asthma, uncomplicated; F32.9 Major depressive disorder, single episode, unspecified; Z86.2 Personal history of diseases of the blood and blood-forming organs and certain disorders involving the immune mechanism; Z86.73 Personal history of transient ischemic attack (TIA), and cerebral infarction without residual deficits; Z87.891 Personal history of nicotine dependence; I25.2 Old myocardial infarction; F11.10 Opioid abuse, uncomplicated; Z88.8 Allergy status to other drugs, medicaments and biological substances; Z88.6 Allergy status to analgesic agent; Z91.041 Radiographic dye allergy status
CPT/HCPCS: 36415; 80053; 80156; 81001; 85025; 87086; 99284

== ENCOUNTER 2017-10-15 17:48 | Emergency (ER) | payer MEDICARE ==
[~2017-10-15] VITALS: Ht 327.7 cm; Wt 103.6 kg
[~2017-10-15 17:48] MED LIST changes: +SULF1TAB24 PO; +WARF-31 PO; -WARF5TAB7 PO
[2017-10-15] MEDS ORDERED: PHENYTOIN SODIUM EXTENDED 100 MG CAPSULE PO ONE (19:30)
[2017-10-15 20:05] VITALS: BP 142/62
[2017-10-15] MEDS ORDERED: PHEN100C PO (20:05)
--- NOTE | 2017-10-15 20:05 | PHYS DOC ---
Past History Past Medical History: Anemia, Arthritis, Asthma, Cancer, CVA, Coagulopathy, Depression, Diabetes, GERD, High Cholesterol, Heart Disease, Hypertension, [place], Seizure Past Surgical History: Appendectomy, Cholecystectomy, Knee Replacement Smoking: Cigarettes, Quit Greater Than 1 Year Alcohol Use: None Drug Use: Opiates Adult General Chief Complaint Chief Complaint: SEIZURE HPI HPI 57-year-old male with a history of seizure disorder now sent for evaluation after a witnessed tonic-clonic seizure. Patient is asymptomatic on arrival. He is alert and comfortable. Patient denies headache. He has no complaints. Patient 's Dilantin level was 5 performed at the [facility] earlier today. Denies fevers chills sweats or shaking chills. No headache or stiff neck. He is at his baseline of left sided severe hemiparesis post stroke, no changes in this chronic status. Review of Systems Review of Systems Constitutional: Denies fever or chills [] Eyes: Denies change in visual acuity, redness, or eye pain [] HENT: Denies nasal congestion or sore throat [] Respiratory: Denies cough or shortness of breath [] Cardiovascular: No additional information not addressed in HPI [] GI: Denies abdominal pain, nausea, vomiting, bloody stools or diarrhea [] : Denies dysuria or hematuria [] Musculoskeletal: Denies back pain or joint pain [] Integument: Denies rash or skin lesions [] Neurologic: Denies headache, focal weakness or sensory changes [] Endocrine: Denies polyuria or polydipsia [] All other systems were reviewed and found to be within normal limits, except as documented in this note. Current Medications Current Medications Current Medications Medications (Trade) Dose Ordered Sig/Perfecto Start Time Stop Time Status Last Admin Dose Admin Phenytoin Sodium (Dilantin) 400 mg 1X ONCE 10/15/17 19:30 10/15/17 19:31 DC 10/15/17 19:45 400 MG Allergies Allergies Allergies Coded Allergies Type Severity Reaction Last Updated Verified cyclobenzaprine Allergy Intermediate 02/28/15 No naproxen Allergy Intermediate 02/28/15 No prednisone Allergy Intermediate PSYCHOSIS 02/28/15 No I S O L A T I O N *CONTACT* Allergy Unknown 10/26/16 Yes Physical Exam Physical Exam Well-appearing patient no acute distress baseline left hemiparesis unchanged per patient. He is alert and oriented cheerful and appropriate Constitutional: Well developed, well nourished, no acute distress, non-toxic appearance. [] HENT: Normocephalic, atraumatic, bilateral external ears normal, oropharynx moist, no oral exudates, nose normal. [] Eyes: PERRLA, EOMI, conjunctiva normal, no discharge. [] Neck: Normal range of motion, no tenderness, supple, no stridor. [] Cardiovascular:Heart rate regular rhythm, no murmur [] Lungs & Thorax: Bilateral breath sounds clear to auscultation [] Abdomen: Bowel sounds normal, soft, no tenderness, no masses, no pulsatile masses. [] Skin: Warm, dry, no erythema, no rash. [] Back: No tenderness, no CVA tenderness. [] Extremities: No tenderness, no cyanosis, no clubbing, ROM intact, no edema. [] Neurologic: Alert and oriented X 3, a slight motor function left hemiparesis, normal sensory function Psychologic: Affect normal, judgement normal, mood normal. [] Current Patient Data Vital Signs Vital Signs Date Time Temp Pulse Resp B/P (MAP) Pulse Ox O2 Delivery O2 Flow Rate FiO2 10/15/17 17:48 98.4 90 18 98 Room Air EKG EKG [] Radiology/Procedures Radiology/Procedures [] Course & Med Decision Making Course & Med Decision Making Pertinent Labs and Imaging studies reviewed. (See chart for details) [] Dragon Disclaimer Dragon Disclaimer This electronic medical record was generated, in whole or in part, using a voice recognition dictation system. Departure Departure: Impression: Primary Impression: Seizure Additional Impression: Subtherapeutic serum dilantin level Disposition: 01 HOME, SELF-CARE Condition: GOOD Referrals: CORTEZ BURCIAGA (PCP) Patient Instructions: Seizure, Adult Additional Instructions: You've experienced seizure activity today typical for you with your seizure disorder. Your Dilantin level was low today. Given a dose of 400 mg of Dilantin. In 2 hours take another 300 mg and 2 hours later take a final 300 mg. This will return your Dilantin level to an appropriate therapeutic status and from there continue your previously prescribed Dilantin regimen. Continue your other medications as previously prescribed as well. Follow-up with your doctor tomorrow and return immediately for new severe worsening symptoms Scripts Phenytoin Sodium Extended (DILANTIN) 100 Mg Capsule 3 CAP PO q2 hr, #6 CAP Prov: PAT RAMIREZ MD 10/15/17 Problem Qualifiers PAT RAMIREZ MD Oct 15, 2017 20:05
--- NOTE | 2017-10-16 19:03 | EKG ---
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
== END 2017-10-15 20:10 | disposition home or self-care (01) ==
LOC: ER 17:48
DX: G40.909 Epilepsy, unspecified, not intractable, without status epilepticus (principal); E11.9 Type 2 diabetes mellitus without complications; J45.909 Unspecified asthma, uncomplicated; K21.9 Gastro-esophageal reflux disease without esophagitis; E78.00 Pure hypercholesterolemia, unspecified; I11.9 Hypertensive heart disease without heart failure; I25.2 Old myocardial infarction; F11.10 Opioid abuse, uncomplicated; Z86.2 Personal history of diseases of the blood and blood-forming organs and certain disorders involving the immune mechanism; Z86.73 Personal history of transient ischemic attack (TIA), and cerebral infarction without residual deficits; Z87.891 Personal history of nicotine dependence; Z88.8 Allergy status to other drugs, medicaments and biological substances; Z91.041 Radiographic dye allergy status
CPT/HCPCS: 93005; 99283

== ENCOUNTER 2017-11-11 13:11 | Emergency (ER) | payer MEDICARE ==
[~2017-11-11] VITALS: Ht 327.7 cm; Wt 103.6 kg
[2017-11-11] MEDS ORDERED: IV NORMAL SALINE 1,000ML 1,000 ML IV SCH (13:35)
[2017-11-11 13:42] VITALS: BP 152/71
[2017-11-11] MEDS ORDERED: 0.9 % SODIUM CHLORIDE 10 ML DISP.SYRIN. IV PRN (13:45)
[2017-11-11] MEDS ORDERED: ACET325T9 PO (13:58)
--- NOTE | 2017-11-11 13:58 | PHYS DOC ---
Past History Past Medical History: Anemia, Arthritis, Asthma, Cancer, CVA, Coagulopathy, Depression, Diabetes, GERD, High Cholesterol, Heart Disease, Hypertension, [place], Seizure Past Surgical History: Appendectomy, Cholecystectomy, Knee Replacement Smoking: Cigarettes, Quit Greater Than 1 Year Alcohol Use: None Drug Use: Opiates Adult General Chief Complaint Chief Complaint: FEVER HPI HPI Patient is a pleasant 57-year-old male with a known history of altered mental status, primary hypertension, hemiplegia following a cerebral infarct number type 2 diabetes, neuropathy, peripheral weakness, history of venous thrombosis and embolism, difficulty walking, generalized anxiety disorder chronic use of insulin, esophageal reflux disease, esophagitis, hyperlipidemia, intermittent asthma, fibromyalgia, chronic pain issues, chronic anemia, shortness of breath chronically, who is a DNR he was dispositioned to us today from [facility] for questionable mental status changes and fever. Patient arrived here into bed 5 with a complaint provided to us by EMS was fever and altered mental status. Upon immediate arrival patient informed that he was not feeling well for last several days but is a DNR. No pain no change in medications, no shortness breath or chest pain at this time. Patient has no belly pain he just doesn't feel well. Denies any change in medications, patient denies any trauma or falls. Patient actually is not wanting to be here. Review of Systems Review of Systems Constitutional: Positive for fevers and chills] Eyes: Denies change in visual acuity, redness, or eye pain [] HENT: Positive for nasal congestion negative for sore throat [] Respiratory: Denies cough or shortness of breath [] Cardiovascular: No additional information not addressed in HPI [] GI: Denies abdominal pain, nausea, vomiting, bloody stools or diarrhea [] : Denies dysuria or hematuria [] Musculoskeletal: Positive for chronic back pain chronic leg pain chronic myalgias Integument: Denies rash or skin lesions [] Neurologic: Positive for chronic frontal headache no focal weakness or sensory changes that are new is chronic hemiplegia of the left side. Endocrine: Denies polyuria or polydipsia [] All other systems were reviewed and found to be within normal limits, except as documented in this note. Current Medications Current Medications Current Medications Medications (Trade) Dose Ordered Sig/Perfecto Start Time Stop Time Status Last Admin Dose Admin Acetaminophen (Tylenol) 325 mg 1X ONCE 11/11/17 14:00 11/11/17 14:01 Sodium Chloride (Normal Saline Flush) 10 ml QSHIFT PRN 11/11/17 13:45 Allergies Allergies Allergies Coded Allergies Type Severity Reaction Last Updated Verified cyclobenzaprine Allergy Intermediate 02/28/15 No naproxen Allergy Intermediate 02/28/15 No prednisone Allergy Intermediate PSYCHOSIS 02/28/15 No I S O L A T I O N *CONTACT* Allergy Unknown 10/26/16 Yes Physical Exam Physical Exam Other vital signs recorded the chart at this time patient noted to be Constitutional: Well developed, well nourished, patient is nontoxic there is obvious flaccid paralysis of the left side of his body and face.[] HENT: Normocephalic, atraumatic, bilateral external ears normal, oropharynx dry with mild erythema no tonsillar hypertrophy, no oral exudates, nose normal. [] Eyes: PERRLA, EOMI, conjunctiva normal, no discharge. [] Neck: Normal range of motion, no tenderness, supple, no stridor. [] Cardiovascular:Heart rate regular rhythm, no murmur [] Lungs & Thorax: Bilateral breath sounds clear to auscultation [] Abdomen: Bowel sounds normal, soft, no tenderness, no masses, no pulsatile masses. [] Skin: Warm, dry, no erythema, no rash. [] Extremities: No tenderness, no cyanosis,[] Neurologic: Alert and oriented X 3, patient has movement of his right upper and right lower extremity Psychologic: Affect normal, judgement normal, mood normal. [] EKG EKG [] Radiology/Procedures Radiology/Procedures [] Course & Med Decision Making Course & Med Decision Making Pertinent Labs and Imaging studies reviewed. (See chart for details) []Almost immediately upon arrival after getting a history from the patient attempting to physically examine him patient became increasingly adamant that he had no complaints of or any evaluation. He did not want an EKG, he did not want IV blood drawn, he wanted no medications, he denied wanting a chest x-ray. He said he did not even want to come to the ER for an evaluation and they forced him to. Patient has no complaint and wants no medications he dirty taken Tylenol prior to arrival and now would like to be discharged back to the [facility] he says they worry too much and he is fine and he does not want to be resuscitated. Patient is quite lucid quite aware of his surroundings at the hospital and again he is adamant he does not wish for any acute intervention at this time discharge: I've spoken with the patient and/or caregivers. I've explained the patient's condition, diagnosis and treatment plan based on information available to me at this time. I've answered the patient's and/or caregivers questions and addressed any concerns. The patient and/or caregivers have a good understanding the patient's diagnosis, condition and treatment plan as can be expected at this point. Vital signs have been stabilized. The patient's condition is stable for discharge from the emergency department. The patient will pursue further outpatient evaluation with her primary care provider or other designated consulting physician as outlined in the discharge instructions. Patient and/or caregivers are agreeable to this plan of care and follow-up instructions have been explained in detail. The patient and/or caregivers have received these instructions in written format and expressed understanding of these discharge instructions. The patient and her caregivers are aware that if any significant change in condition or worsening of symptoms should prompt him to immediately return to this of the closest emergency department. If an emergent department is not readily available I would encourage him to call 911. Dragon Disclaimer Dragon Disclaimer This electronic medical record was generated, in whole or in part, using a voice recognition dictation system. Departure Departure: Impression: Primary Impression: Fever Additional Impression: Left against medical advice Disposition: 01 HOME, SELF-CARE Condition: GUARDED Referrals: CORTEZ BURCIAGA (PCP) Patient Instructions: Fever Additional Instructions: discharge: I've spoken with the patient and/or caregivers. I've explained the patient's condition, diagnosis and treatment plan based on information available to me at this time. I've answered the patient's and/or caregivers questions and addressed any concerns. The patient and/or caregivers have a good understanding the patient's diagnosis, condition and treatment plan as can be expected at this point. Vital signs have been stabilized. The patient's condition is stable for discharge from the emergency department. The patient will pursue further outpatient evaluation with her primary care provider or other designated consulting physician as outlined in the discharge instructions. Patient and/or caregivers are agreeable to this plan of care and follow-up instructions have been explained in detail. The patient and/or caregivers have received these instructions in written format and expressed understanding of these discharge instructions. The patient and her caregivers are aware that if any significant change in condition or worsening of symptoms should prompt him to immediately return to this of the closest emergency department. If an emergent department is not readily available I would encourage him to call 911. Scripts Acetaminophen (TYLENOL) 325 Mg Tablet 1-2 TAB PO QID, #30 TAB 2 Refills Prov: UCHE SHEETS MD 11/11/17 Problem Qualifiers UCHE SHEETS MD Nov 11, 2017 13:58
[2017-11-11] MEDS ORDERED: ACETAMINOPHEN 325 MG TABLET PO ONE (14:00)
== END 2017-11-11 15:00 | disposition home or self-care (01) ==
LOC: ER 13:11
DX: R50.9 Fever, unspecified (principal); R41.82 Altered mental status, unspecified; R53.1 Weakness; M19.90 Unspecified osteoarthritis, unspecified site; J45.909 Unspecified asthma, uncomplicated; K21.9 Gastro-esophageal reflux disease without esophagitis; E78.00 Pure hypercholesterolemia, unspecified; I11.9 Hypertensive heart disease without heart failure; I25.2 Old myocardial infarction; F41.1 Generalized anxiety disorder; M79.7 Fibromyalgia; F32.9 Major depressive disorder, single episode, unspecified; G89.29 Other chronic pain; E11.40 Type 2 diabetes mellitus with diabetic neuropathy, unspecified; F11.10 Opioid abuse, uncomplicated; Z86.718 Personal history of other venous thrombosis and embolism; Z86.2 Personal history of diseases of the blood and blood-forming organs and certain disorders involving the immune mechanism; Z86.73 Personal history of transient ischemic attack (TIA), and cerebral infarction without residual deficits; Z88.8 Allergy status to other drugs, medicaments and biological substances; Z88.6 Allergy status to analgesic agent; Z91.041 Radiographic dye allergy status
CPT/HCPCS: 99283

== ENCOUNTER 2018-09-23 13:09 | Emergency (ER) | payer MEDICARE ==
[~2018-09-23] VITALS: Ht 175.3 cm; Wt 117.9 kg
[~2018-09-23 13:09] MED LIST changes: +ACET325T9 PO; +HYDR-3166 PO; -HYDR-965 PO
[2018-09-23 13:10] VITALS: BP 153/81
[2018-09-23] MEDS ORDERED: IV NORMAL SALINE 500ML 360 ML IV ONE (13:30)
[2018-09-23 13:50] LABS: BASO # 0.1 x10^3/uL (0.0-0.2); BASO % 1 % (0-3); EOS # 0.5 x10^3/uL (0.0-0.7); EOS % 6 % (0-3); HEMATOCRIT 41.5 % (39.0-53.0); HEMOGLOBIN 13.4 g/dL (13.0-17.5); LYMPH # 3.3 x10^3/uL (1.0-4.8); LYMPH % 40 % (24-48); MEAN CORPUSCULAR HEMOGLOBIN 30 pg (25-35); MEAN CORPUSCULAR HGB CONC 32 g/dL (31-37); MEAN CORPUSCULAR VOLUME 93 fL (79-100); MONO # 0.7 x10^3/uL (0.0-1.1); MONO % 8 % (0-9); NEUT # 3.8 x10^3uL (1.8-7.7); NEUT % 45 % (31-73); PLATELET COUNT 197 x10^3/uL (140-400); RED BLOOD COUNT 4.45 x10^6/uL (4.30-5.70); RED CELL DISTRIBUTION WIDTH 13.8 % (11.5-14.5); WHITE BLOOD COUNT 8.3 x10^3/uL (4.0-11.0)
[2018-09-23 13:52] LABS: CALCIUM 8.7 mg/dL (8.5-10.1); CREATININE 0.7 mg/dL (0.7-1.3); MAGNESIUM 2.2 mg/dL (1.8-2.4); POTASSIUM 4.2 mmol/L (3.5-5.1)
[2018-09-23 14:34] LABS: PLT ESTIMATE ADEQUATE (ADEQUATE)
--- NOTE | 2018-09-23 18:04 | EKG ---
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
== END 2018-09-23 14:04 | disposition home or self-care (01) ==
LOC: ER 13:09
DX: R07.89 Other chest pain (principal); M79.604 Pain in right leg; M25.521 Pain in right elbow; Z53.21 Procedure and treatment not carried out due to patient leaving prior to being seen by health care provider; W18.30XA Fall on same level, unspecified, initial encounter; Y93.89 Activity, other specified; Y92.89 Other specified places as the place of occurrence of the external cause; Y99.8 Other external cause status
CPT/HCPCS: 36415; 80048; 83735; 84484; 85025; 93005

== ENCOUNTER 2019-07-21 13:17 | Emergency (ER) | payer MEDICARE ==
[~2019-07-21] VITALS: Ht 175.3 cm; Wt 103.6 kg
[~2019-07-21 13:17] MED LIST changes: -DULO60CA44 PO; +DULO60CA98 PO; -MORP60TA PO; +MORP60TA60 PO; +OMEP20CA10 PO; -OMEP20CA9 PO
--- NOTE | 2019-07-21 13:37 | RAD ---
PQRS Compliance Statement: One or more of the following individualized dose reduction techniques were utilized for this examination: 1. Automated exposure control 2. Adjustment of the mA and/or kV according to patient size 3. Use of iterative reconstruction technique CT head without contrast 07/21/2019 1:19 PM INDICATION: Lethargic COMPARISON: CT head 09/23/2017 TECHNIQUE: Multiple axial CT images of the head were obtained from skull base through the vertex without intravenous contrast. FINDINGS: Head: Ventricles, sulci and basal cisterns are prominent compatible with mild generalized cerebral line loss. Low-attenuation in the periventricular white matter is suggestive of chronic small vessel ischemic changes. Remote ischemic changes are identified within the right frontal and parietal lobe in the right MCA distribution There is no hydrocephalus. Galindo-white matter differentiation is normal. There is no acute intracranial hemorrhage. There is no mass, mass effect or midline shift. Posterior fossa is normal in appearance. Visualized portions of the orbits are normal. Paranasal sinuses are well aerated. Mastoid air cells are well aerated. Scalp and calvaria are normal. IMPRESSION: No acute intracranial hemorrhage. Remote ischemic changes appear stable from prior examination from 09/23/2017 involving the right frontal and parietal lobes. FOR INTERNAL CODING PURPOSES Critical result: Findings discussed with DR. GREGORIO CARLISLE at 07/21/2019 1:33 PM. RESULT CODE: (C) Electronically signed by: Olesya Carrion MD (07/21/2019 1:34 PM) [id number]
--- NOTE | 2019-07-21 14:38 | PHYS DOC ---
Past History Past Medical History: Anemia, Arthritis, Asthma, Cancer, CVA, Coagulopathy, Depression, Diabetes, GERD, High Cholesterol, Heart Disease, Hypertension, [place], Seizure Past Surgical History: Appendectomy, Cholecystectomy, Knee Replacement Smoking: Cigarettes, Quit Greater Than 1 Year Alcohol Use: None Drug Use: Opiates Adult General Chief Complaint Chief Complaint: ALTERED MENTAL STATUS HPI HPI Patient is a 59 year old M who presents with altered mental status. Ney states that yesterday while bending over he fell and hit his head on the windowsill. Since that time he states he has been very sleepy. He denies other symptoms currently. However on further review he states that over the past 3 weeks he has had bright red blood in his stool and black stool. His last stool was yesterday and was bright red blood. He does use chewing tobacco. He has never had a colonoscopy. Review of Systems Review of Systems Constitutional: Denies fever or chills [] Eyes: Denies change in visual acuity, redness, or eye pain [] HENT: Denies nasal congestion or sore throat [] Respiratory: Denies cough or shortness of breath [] Cardiovascular: No additional information not addressed in HPI [] GI: Negative except history of present illness : Denies dysuria or hematuria [] Musculoskeletal: Denies back pain or joint pain [] Integument: Denies rash or skin lesions [] Neurologic: Denies headache, focal weakness or sensory changes [] Endocrine: Denies polyuria or polydipsia [] All other systems were reviewed and found to be within normal limits, except as documented in this note. Family History Family History He describes several family members that have from cancer. However he has a difficult time elaborating further than that Current Medications Current Medications Current medications were reviewed Allergies Allergies Allergies Coded Allergies Type Severity Reaction Last Updated Verified cyclobenzaprine Allergy Intermediate 02/28/15 No naproxen Allergy Intermediate 02/28/15 No prednisone Allergy Intermediate PSYCHOSIS 02/28/15 No I S O L A T I O N *CONTACT* Allergy Unknown 10/26/16 Yes Physical Exam Physical Exam Constitutional: Well developed, pale, extreme fatigue, Eyes: PERRLA, EOMI, conjunctiva normal, no discharge. [] Neck: Normal range of motion, no tenderness, supple, no stridor. [] Cardiovascular:Heart rate regular rhythm Lungs & Thorax: Bilateral breath sounds clear to auscultation [] Abdomen: Bowel sounds normal, soft, no masses, no pulsatile masses. [] Mild generalized tenderness Skin: dry, no erythema, no rash. [] Extremely pale Extremities: No tenderness, no cyanosis, no clubbing, ROM intact, no edema. [] Neurologic: Alert and oriented X 3, normal motor function, normal sensory function, no focal deficits noted. [] Psychologic: Affect normal, judgement normal, mood normal. [] Current Patient Data Vital Signs Vital Signs Date Time Temp Pulse Resp B/P (MAP) Pulse Ox O2 Delivery O2 Flow Rate FiO2 07/21/19 13:31 98.1 55 16 97 Room Air Lab Results Laboratory Tests Test 07/21/19 14:54 Hemoglobin 13.0 g/dL (13.0-17.5) Hematocrit 40.4 % (39.0-53.0) Mean Corpuscular Hemoglobin Concent 32 g/dL (31-37) EKG EKG [] Radiology/Procedures Radiology/Procedures [] Course & Med Decision Making Course & Med Decision Making Pertinent Labs and Imaging studies reviewed. (See chart for details) Ney had extreme difficulty obtaining IV and labs. Multiple attempts were made. Just prior to discharge he was waiting for ultrasound to place a more definitive IV. Ney declined any further intervention at this time. He states that he is a DNR. She states that he does not want to " on purpose" however he states that he is just existing and not living like she used to. He was clearly explained that he could or become permanently disabled due to untreated conditions have not found as a result of his refusal for further medical workup and treatment. Understanding was verbalized. He states that he would like to go home. Dragon Disclaimer Dragon Disclaimer This electronic medical record was generated, in whole or in part, using a voice recognition dictation system. Departure Departure: Impression: Primary Impression: GI bleed Disposition: AGAINST MEDICAL ADVICE Condition: GUARDED Referrals: CORTEZ BURCIAGA (PCP) Additional Instructions: Ney was seen in the emergency department after a fall. There was concern for an emergency medical condition. IV access was difficult to obtain. He decided to leave AGAINST MEDICAL ADVICE. He verbalized understanding that this may result in or permanent disability due to an untreated emergency medical condition not found. Problem Qualifiers Primary Impression: GI bleed GI bleed type/associated pathology: unspecified gastrointestinal hemorrhage type Qualified Codes: K92.2 - Gastrointestinal hemorrhage, unspecified GREGORIO CARLISLE MD Jul 21, 2019 14:38
--- NOTE | 2019-07-21 14:57 | EKG ---
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
[2019-07-21 15:13] LABS: HEMATOCRIT 40.4 % (39.0-53.0)
[2019-07-21] MEDS ORDERED: LIDOCAINE 1% Multi-Dose 20 ML VIAL. ONE (15:18)
[2019-07-21 16:40] VITALS: BP 148/63
[2019-07-21] MEDS ORDERED: LIDOCAINE 1% Multi-Dose 20 ML VIAL. SQ ONE (17:00)
== END 2019-07-21 16:34 | disposition left against medical advice (07) ==
LOC: ER 13:17
DX: K92.2 Gastrointestinal hemorrhage, unspecified (principal); R41.82 Altered mental status, unspecified; M19.90 Unspecified osteoarthritis, unspecified site; J45.909 Unspecified asthma, uncomplicated; E11.9 Type 2 diabetes mellitus without complications; K21.9 Gastro-esophageal reflux disease without esophagitis; E78.00 Pure hypercholesterolemia, unspecified; I11.9 Hypertensive heart disease without heart failure; I25.2 Old myocardial infarction; Z86.2 Personal history of diseases of the blood and blood-forming organs and certain disorders involving the immune mechanism; Z86.73 Personal history of transient ischemic attack (TIA), and cerebral infarction without residual deficits; Z90.49 Acquired absence of other specified parts of digestive tract; Z90.89 Acquired absence of other organs; Z87.891 Personal history of nicotine dependence; Z91.041 Radiographic dye allergy status; Z88.8 Allergy status to other drugs, medicaments and biological substances
CPT/HCPCS: 36415; 70450; 85014; 85018; 93005; 99285